=== PATIENT | female | born 1945 | race Caucasian/White ===

== ENCOUNTER 2017-07-03 17:22 | Observation (INO) ==
[2017-07-04] MEDS ORDERED: NORCO-5 PO PRN (01:51)
[2017-07-04] MEDS ORDERED: TYLENOL PO PRN (01:51)
[2017-07-04 06:20] LABS: MANUAL DIFF NEEDED? NO
[2017-07-04 06:25] LABS: BASO% 0.4 % (0.0-0.8); EOS# 0.08 X1000 (0.0-0.7); EOS% 0.8 % (0.0-10.0); HEMATOCRIT 38.6 % (37.0-47.0); HEMOGLOBIN 11.9 g/dL (12.0-16.0); IMM GRAN# 0.03 X1000 (0.0-0.04); IMM GRAN% 0.3 % (0.0-0.5); LYMPH# 1.87 X1000 (1.2-3.4); LYMPH% 18.3 % (20.5-51.1); MCHC 30.8 g/dL (33-37); MCV 84.3 FL (81-99); MONO% 6.9 % (1.7-9.3); MPV 9.1 FL (7.4-10.4); NEUT% 73.3 % (42.2-75.2); PLT 382 X1000 (130-400); RBC 4.58 XMIL (4.2-5.4)
[2017-07-04 06:50] LABS: AGAP 12; ALBUMIN 4.1 g/dL (3.5-5.0); ALKALINE PHOSPHATASE 94 U/L (32-104); BUN 11 mg/dL (8-22); CALCIUM 9.5 mg/dL (8.8-10.2); CHLORIDE 99 mmol/L (98-107); COSMO 280; GOT 16 U/L (10-30); GPT 12 U/L (10-36); POTASSIUM 4.1 mmol/L (3.5-5.1); SODIUM 139 mmol/L (136-145); TCO2 28 mmol/L (25-35); TOTAL PROTEIN 7.1 g/dL (6.3-8.3)
[2017-07-04] MEDS: NORCO-7.5 PO PRN ×3 (07:18→20:03)
[2017-07-04] MEDS: THERA M PLUS PO SCH (08:43)
[2017-07-04] MEDS: ASPIRIN PO SCH (08:43)
[2017-07-04] MEDS: KLOR-CON PO SCH (08:43)
[2017-07-04 12:06] LABS: BILIRUBIN URINE NEGATIVE (NEGATIVE); BLOOD URINE 2+ (NEGATIVE); CLARITY VERY CLOUDY (CLEAR); COLOR YELLOW; GLUCOSE URINE NEGATIVE (NEGATIVE); LEUKOCYTES URINE 2+ (NEGATIVE); NITRITE URINE POSITIVE (NEGATIVE); PH URINE 6.5; PROTEIN URINE TRACE mg/dL (NEGATIVE); SP GRAVITY URINE 1.015; UROBILINOGEN URINE NORMAL
[2017-07-04 12:07] LABS: URINE CRYSTAL CA OXALATE PRESENT /HPF; URINE CULTURE PL NEEDED? YES; URINE EPITHELIAL CELLS <10 /HPF (<10); URINE SOURCE CLEAN CATCH; URINE WBC 20-40 /HPF (<10)
[2017-07-04] MEDS: SEPTRA DS PO SCH (20:03)
[2017-07-04] MEDS ORDERED: ZOFRAN PO PRN (23:52)
[2017-07-05] MEDS: ZOFRAN ODT PO PRN ×2 (00:34→11:21)
[2017-07-05] MEDS: NORCO-7.5 PO PRN ×4 (02:21→22:23)
[2017-07-05 06:32] LABS: HEMATOCRIT 36.5 % (37.0-47.0); HEMOGLOBIN 11.2 g/dL (12.0-16.0); MCHC 30.7 g/dL (33-37); MCV 84.7 FL (81-99); MPV 8.8 FL (7.4-10.4); RBC 4.31 XMIL (4.2-5.4)
[2017-07-05 07:02] LABS: AGAP 8; BUN 12 mg/dL (8-22); CALCIUM 9.4 mg/dL (8.8-10.2); CHLORIDE 100 mmol/L (98-107); COSMO 277; POTASSIUM 4.3 mmol/L (3.5-5.1); SODIUM 138 mmol/L (136-145); TCO2 30 mmol/L (25-35)
[2017-07-05] MEDS ORDERED: ROCEPHIN 1 GM in NS 50 ML IV SCH (09:00)
[2017-07-05] MEDS: KLOR-CON PO SCH (09:09)
[2017-07-05] MEDS: ASPIRIN PO SCH (09:10)
[2017-07-05] MEDS: THERA M PLUS PO SCH (09:10)
[2017-07-05] MEDS: SEPTRA DS PO SCH ×2 (09:10→22:22)
[2017-07-05 12:00] LABS: INR 0.87 (0.86-1.15); PROTIME 12.5 Seconds (12.1-15.5)
[2017-07-05] MEDS: LASIX PO SCH (22:23)
[2017-07-06] MEDS: NORCO-7.5 PO PRN ×5 (02:22→22:54)
[2017-07-06] MEDS: LASIX PO SCH ×3 (02:27→20:20)
[2017-07-06] MEDS: KLOR-CON PO SCH (08:33)
[2017-07-06] MEDS: ASPIRIN PO SCH (08:33)
[2017-07-06] MEDS: THERA M PLUS PO SCH (08:34)
[2017-07-06] MEDS: SEPTRA DS PO SCH ×2 (08:34→20:21)
[2017-07-06] MEDS ORDERED: PHENERGAN IM ONE (12:11)
[2017-07-06] MEDS ORDERED: DILAUDID IM ONE (12:11)
[2017-07-07] MEDS: NORCO-7.5 PO PRN ×4 (03:05→16:04)
[2017-07-07 06:20] LABS: HEMOGLOBIN 11.2 g/dL (12.0-16.0); MCHC 31.1 g/dL (33-37); MCV 83.7 FL (81-99); MPV 8.8 FL (7.4-10.4); RBC 4.3 XMIL (4.2-5.4)
[2017-07-07 06:28] LABS: AGAP 10; ALKALINE PHOSPHATASE 87 U/L (32-104); BUN 10 mg/dL (8-22); CALCIUM 9.3 mg/dL (8.8-10.2); CHLORIDE 95 mmol/L (98-107); COSMO 274; GOT 13 U/L (10-30); GPT 13 U/L (10-36); MAGNESIUM 2.2 mg/dL (1.5-2.7); POTASSIUM 4.5 mmol/L (3.5-5.1); SODIUM 136 mmol/L (136-145); TCO2 31 mmol/L (25-35); TOTAL PROTEIN 6.9 g/dL (6.3-8.3)
[2017-07-07] MEDS: ZOFRAN ODT PO PRN (07:23)
[2017-07-07] MEDS: SEPTRA DS PO SCH (08:55)
[2017-07-07] MEDS: KLOR-CON PO SCH (08:55)
[2017-07-07] MEDS: LASIX PO SCH ×2 (08:55→21:40)
[2017-07-07] MEDS: ASPIRIN PO SCH (08:55)
[2017-07-07] MEDS: THERA M PLUS PO SCH (08:56)
[2017-07-08] MEDS: NORCO-7.5 PO PRN ×6 (00:01→20:59)
[2017-07-08 05:59] LABS: HEMATOCRIT 36.3 % (37.0-47.0); HEMOGLOBIN 11.3 g/dL (12.0-16.0); MCHC 31.1 g/dL (33-37); MCV 83.6 FL (81-99); MPV 8.8 FL (7.4-10.4); RBC 4.34 XMIL (4.2-5.4)
[2017-07-08 06:16] LABS: ALBUMIN 4.1 g/dL (3.5-5.0); CALCIUM 9.3 mg/dL (8.8-10.2); MAGNESIUM 2.1 mg/dL (1.5-2.7); TOTAL BILIRUBIN 0.3 mg/dL (0.20-1.00); TOTAL PROTEIN 7.1 g/dL (6.3-8.3)
[2017-07-08] MEDS: ZOFRAN ODT PO PRN (07:06)
[2017-07-08] MEDS: KLOR-CON PO SCH (08:20)
[2017-07-08] MEDS: LASIX PO SCH ×2 (08:20→21:00)
[2017-07-08] MEDS: ASPIRIN PO SCH (08:20)
[2017-07-08] MEDS: THERA M PLUS PO SCH (08:20)
[2017-07-09] MEDS: NORCO-7.5 PO PRN ×6 (01:06→23:00)
[2017-07-09] MEDS: LASIX PO SCH ×2 (10:07→21:04)
[2017-07-09] MEDS: THERA M PLUS PO SCH (10:07)
[2017-07-09] MEDS: KLOR-CON PO SCH (10:07)
[2017-07-09] MEDS: ASPIRIN PO SCH (10:08)
[2017-07-09] MEDS: LOVENOX SUBQ SCH (18:56)
[2017-07-09] MEDS: SEPTRA DS PO SCH (21:05)
[2017-07-10] MEDS: ZOFRAN ODT PO PRN (03:36)
[2017-07-10] MEDS: NORCO-7.5 PO PRN ×5 (03:36→23:13)
[2017-07-10 06:07] LABS: HEMATOCRIT 37.4 % (37.0-47.0); HEMOGLOBIN 11.6 g/dL (12.0-16.0); MCH 25.9 PG (27-31); MCV 83.5 FL (81-99); MPV 8.6 FL (7.4-10.4); RBC 4.48 XMIL (4.2-5.4)
[2017-07-10 06:31] LABS: AGAP 11; BUN 16 mg/dL (8-22); CALCIUM 9.1 mg/dL (8.8-10.2); CHLORIDE 94 mmol/L (98-107); COSMO 276; POTASSIUM 3.7 mmol/L (3.5-5.1); SODIUM 136 mmol/L (136-145); TCO2 31 mmol/L (25-35)
[2017-07-10] MEDS: SEPTRA DS PO SCH ×2 (08:51→21:59)
[2017-07-10] MEDS: LASIX PO SCH ×2 (08:51→21:58)
[2017-07-10] MEDS: THERA M PLUS PO SCH (08:51)
[2017-07-10] MEDS: KLOR-CON PO SCH (08:51)
[2017-07-10] MEDS: ASPIRIN PO SCH (08:51)
[2017-07-10] MEDS: LOVENOX SUBQ SCH (18:29)
[2017-07-11] MEDS: NORCO-7.5 PO PRN ×5 (02:34→23:38)
[2017-07-11 06:27] LABS: HEMATOCRIT 35.9 % (37.0-47.0); HEMOGLOBIN 11.4 g/dL (12.0-16.0); MCH 26.5 PG (27-31); MCHC 31.8 g/dL (33-37); MCV 83.3 FL (81-99); MPV 9.2 FL (7.4-10.4); RBC 4.31 XMIL (4.2-5.4)
[2017-07-11 06:40] LABS: AGAP 12; BUN 14 mg/dL (8-22); CALCIUM 9.4 mg/dL (8.8-10.2); CHLORIDE 94 mmol/L (98-107); COSMO 276; POTASSIUM 3.8 mmol/L (3.5-5.1); SODIUM 136 mmol/L (136-145); TCO2 31 mmol/L (25-35)
[2017-07-11] MEDS: ZOFRAN ODT PO PRN ×2 (07:17→16:22)
[2017-07-11] MEDS: KLOR-CON PO SCH (08:59)
[2017-07-11] MEDS: ASPIRIN PO SCH (08:59)
[2017-07-11] MEDS: SEPTRA DS PO SCH ×2 (09:00→20:03)
[2017-07-11] MEDS: LASIX PO SCH ×2 (09:00→20:03)
[2017-07-11] MEDS: THERA M PLUS PO SCH (09:01)
[2017-07-11] MEDS: LOVENOX SUBQ SCH (18:11)
[2017-07-12] MEDS: NORCO-7.5 PO PRN ×5 (03:29→23:54)
[2017-07-12] MEDS: KLOR-CON PO SCH (09:13)
[2017-07-12] MEDS: THERA M PLUS PO SCH (09:13)
[2017-07-12] MEDS: ASPIRIN PO SCH (09:14)
[2017-07-12] MEDS: LASIX PO SCH ×2 (09:14→20:02)
[2017-07-12] MEDS: SEPTRA DS PO SCH ×2 (09:15→20:03)
[2017-07-12] MEDS: ZOFRAN ODT PO PRN (12:18)
[2017-07-12] MEDS: LOVENOX SUBQ SCH (18:51)
[2017-07-13] MEDS: NORCO-7.5 PO PRN ×5 (04:15→22:41)
[2017-07-13] MEDS: THERA M PLUS PO SCH (09:23)
[2017-07-13] MEDS: KLOR-CON PO SCH (09:24)
[2017-07-13] MEDS: ASPIRIN PO SCH (09:24)
[2017-07-13] MEDS: SEPTRA DS PO SCH ×2 (09:24→20:27)
[2017-07-13] MEDS: LASIX PO SCH ×2 (09:24→20:26)
[2017-07-13] MEDS: LOVENOX SUBQ SCH (18:25)
[2017-07-14] MEDS: NORCO-7.5 PO PRN ×5 (04:13→22:36)
[2017-07-14] MEDS: ZOFRAN ODT PO PRN (06:59)
[2017-07-14] MEDS: SEPTRA DS PO SCH (09:20)
[2017-07-14] MEDS: ASPIRIN PO SCH (09:20)
[2017-07-14] MEDS: LASIX PO SCH ×2 (09:20→20:03)
[2017-07-14] MEDS: THERA M PLUS PO SCH (09:21)
[2017-07-14] MEDS: KLOR-CON PO SCH (09:21)
[2017-07-14] MEDS ORDERED: LACTULOSE PO PRN (14:38)
[2017-07-14] MEDS: LOVENOX SUBQ SCH (17:49)
[2017-07-15] MEDS: NORCO-7.5 PO PRN ×5 (02:58→21:36)
[2017-07-15] MEDS: MIRALAX PO SCH (08:45)
[2017-07-15] MEDS: LASIX PO SCH ×2 (08:45→21:35)
[2017-07-15] MEDS: THERA M PLUS PO SCH (08:45)
[2017-07-15] MEDS: KLOR-CON PO SCH (08:45)
[2017-07-15] MEDS: ASPIRIN PO SCH (08:45)
[2017-07-15] MEDS: ZOFRAN ODT PO PRN (17:32)
[2017-07-15] MEDS: LOVENOX SUBQ SCH (17:32)
[2017-07-16] MEDS: NORCO-7.5 PO PRN ×5 (03:28→18:53)
[2017-07-16] MEDS: LASIX PO SCH ×2 (09:14→20:29)
[2017-07-16] MEDS: ASPIRIN PO SCH (09:14)
[2017-07-16] MEDS: KLOR-CON PO SCH (09:14)
[2017-07-16] MEDS: THERA M PLUS PO SCH (09:14)
[2017-07-16] MEDS: MIRALAX PO SCH (09:15)
[2017-07-16] MEDS: ZOFRAN ODT PO PRN (15:15)
[2017-07-16] MEDS: LOVENOX SUBQ SCH (17:48)
[2017-07-17] MEDS: NORCO-7.5 PO PRN ×6 (00:08→22:57)
[2017-07-17] MEDS: THERA M PLUS PO SCH (09:08)
[2017-07-17] MEDS: KLOR-CON PO SCH (09:08)
[2017-07-17] MEDS: ASPIRIN PO SCH (09:09)
[2017-07-17] MEDS: LASIX PO SCH ×2 (09:09→20:20)
[2017-07-17] MEDS: MIRALAX PO SCH (09:10)
[2017-07-17] MEDS: ZOFRAN ODT PO PRN (15:02)
[2017-07-17] MEDS: LOVENOX SUBQ SCH (18:23)
[2017-07-18] MEDS: NORCO-7.5 PO PRN ×3 (03:55→13:23)
[2017-07-18 07:29] VITALS: BP 129/71
[2017-07-18] MEDS: LASIX PO SCH (08:50)
[2017-07-18] MEDS: THERA M PLUS PO SCH (08:50)
[2017-07-18] MEDS: KLOR-CON PO SCH (08:50)
[2017-07-18] MEDS: ASPIRIN PO SCH (08:50)
[2017-07-18] MEDS: MIRALAX PO SCH (10:22)
== END 2017-07-18 14:15 ==
LOC: P.ED 17:22 → P.MEDSURG 17:22 → SUATTDRO 17:24
PROVIDERS: ATTEND Family Medicine

== ENCOUNTER 2019-07-24 10:46 | Inpatient (IN) ==
[2019-07-24] MEDS ORDERED: NS 1,000 ML IV ONE (11:06)
[2019-07-24 11:23] LABS: BASO# 0.04 X1000 (0.0-0.2); BASO% 0.4 % (0.0-0.8); EOS# 0.21 X1000 (0.0-0.7); EOS% 2.1 % (0.0-10.0); HEMATOCRIT 44.3 % (37.0-47.0); HEMOGLOBIN 13.9 g/dL (12.0-16.0); IMM GRAN# 0.02 X1000 (0.0-0.04); IMM GRAN% 0.2 % (0.0-0.5); LYMPH# 1.87 X1000 (1.2-3.4); LYMPH% 18.9 % (20.5-51.1); MCH 25.6 PG (27-31); MCHC 31.4 g/dL (33-37); MCV 81.7 FL (81-99); MONO# 0.58 X1000 (0.11-0.59); MONO% 5.8 % (1.7-9.3); NEUT% 72.6 % (42.2-75.2); PLT 412 X1000 (130-400); RBC 5.42 XMIL (4.2-5.4); RDW 14.9 % (11.5-14.5); WBC 9.92 X1000 (4.8-10.8)
[2019-07-24 11:49] LABS: AGAP 13; ALBUMIN 4.1 g/dL (3.5-5.0); ALKALINE PHOSPHATASE 80 U/L (32-104); BUN 10 mg/dL (8-22); CALCIUM 9.2 mg/dL (8.8-10.2); CHLORIDE 100 mmol/L (98-107); COSMO 282; CREATININE 0.5 mg/dL (0.5-0.9); ESTIMATED GFR > 60; GLUCOSE 155 mg/dL (70-104); GOT 17 U/L (10-30); GPT 18 U/L (10-36); POTASSIUM 3.6 mmol/L (3.5-5.1); SODIUM 140 mmol/L (136-145); TCO2 27 mmol/L (25-35); TOTAL PROTEIN 7.1 g/dL (6.3-8.3)
--- NOTE | 2019-07-24 12:43 | EKG Report ---
Test Performed on : 07/24/2019 11:12:01 AM Test Reason : tachycardia Blood Pressure : / mmHG Vent. Rate : 114 BPM Atrial Rate : 114 BPM P-R Int : 166 ms QRS Dur : 086 ms QT Int : 336 ms P-R-T Axes : 052 -29 043 degrees QTc Int : 463 ms Sinus tachycardia. Inferior infarct (cited on or before 11-JUL-2017) Cannot rule out Anterior infarct (cited on or before 10-JUL-2017) Abnormal ECG When compared with ECG of 11-JUL-2019 12:49, premature ventricular complexes. are no longer present Unconfirmed Result
--- NOTE | 2019-07-24 16:53 | EKG Report ---
Test Performed on : 07/24/2019 4:52:05 PM Test Reason : TACHYCARDIA Blood Pressure : / mmHG Vent. Rate : 108 BPM Atrial Rate : 108 BPM P-R Int : 158 ms QRS Dur : 078 ms QT Int : 354 ms P-R-T Axes : 057 -20 051 degrees QTc Int : 474 ms Sinus tachycardia. Inferior infarct (cited on or before 11-JUL-2019) Cannot rule out Anterior infarct (cited on or before 10-JUL-2017) Abnormal ECG When compared with ECG of 24-JUL-2019 11:12, (Unconfirmed) Serial changes of Anterior infarct present Unconfirmed Result
[2019-07-24] MEDS ORDERED: NORCO-5 PO ONE (16:55)
[2019-07-24] MEDS ORDERED: PHENERGAN IV ONE (16:57)
[2019-07-24] MEDS ORDERED: SODIUM CHLORIDE 0.9% INJ ONE (16:57)
--- NOTE | 2019-07-24 17:24 | PROVIDER DOCUMENTATION ---
This chart was entered by Quyen Das Scribe, acting as scribe for Donnie Hackett MD. HPI-Abdominal Pain/GI Problem - General Chief Complaint: Diarrhea Stated Complaint: DIARRHEA Time Seen by Provider: 07/24/19 11:07 Source: patient Allergies/Adverse Reactions: Patient Allergies Allergy/AdvReac Type Severity Reaction Status Date / Time codeine Allergy RASH Verified 07/24/19 11:30 Penicillins Allergy RASH Verified 07/24/19 11:30 Home Medications: Home Medication List Medication Instructions Recorded Confirmed Last Taken Type NK [No Home Medications] 07/24/19 07/24/19 Unknown History - History of Present Illness-ABD Nature of Presenting Problems: 73yom presents to ED by EMS cc diarrhea 2-3x a day for last 10 days that is watery and dark. Pt reports she has been staying at the [facility] since 07/11 with her boyfriend for a pre-honeymoon and he started with diarrhea 3 days ago. Pt also reports she was bitten by a Brown Recl[place] Spider in 2016 and has had diarrhea problems off and on since with this time being the worst. Pt denies V/N/chest pain or ABT. Pt has hx of DM. Pt is nontoxic in appearance. Severity in ED: reports: mild Onset/Duration: reports: other (10days) Timing: reports: still present Activities at Onset: reports: light activity Exposure to sick contacts?: Yes (boyfriend has diarrhea for last 3 days) Modifying Factors: improves with: nothing Associated Symptoms: reports: diarrhea Last BM: this morning Dark Stools Present?: reports: none noticed Rectal Bleeding: reports: none Rectal Pain: reports: none Emesis Description: reports: none Bruising or Bleeding Gums?: No Similar Symptoms Previously?: No Recently seen or treated by another doctor?: No Review of Systems - Adult - REVIEW OF SYSTEMS - ADULT Constitutional: reports: see HPI. denies: chills, fever, fatique Eyes: reports: no symptoms reported Ears, Nose, Mouth & Throat: reports: no symptoms reported Cardiovascular: reports: see HPI. denies: chest pain Respiratory: reports: no symptoms reported Gastrointestinal: reports: see HPI, diarrhea. denies: abdominal pain, nausea, vomiting Genitourinary: reports: no symptoms reported Musculoskeletal: reports: no symptoms reported Integumentary: reports: no symptoms reported Neurological: reports: no symptoms reported Psychiatric: reports: no symptoms reported Endocrine: reports: no symptoms reported Hematologic/Lymphatic: reports: no symptoms reported Allergic/Immunologic: reports: no symptoms reported All Other Systems: Reviewed and Negative Past History - Adult - PAST MEDICAL HISTORY-ADULT Review of Records: reports: Nursing Assessment Review, Medications Reviewed, Social history reviewed & non-contributory. Major Childhood Illnesses: reports: denies history Cardiovascular: reports: denies history Respiratory: reports: denies history Gastrointestinal: reports: denies history Obstetrical/Gynecological: reports: denies history Genitourinary: reports: denies history Musculoskeletal: reports: denies history Neurological: reports: denies history Endocrine/Immune: reports: denies history Other Conditions: reports: denies history - PRIOR SURGERIES/PROCEDURES Surgical/Procedure History: reports: none - IMMUNIZATION STATUS Childhood Immunizations: See Nurse Assessment Flu Vaccine: See Nurse Assessment - FAMILY HISTORY Family History: reviewed, not pertinent - SOCIAL HISTORY Smoking: denies Physical Exam-General - PHYSICAL EXAM-ADULT Initial Vital Signs Reviewed: Yes - CONSTITUTIONAL General Appearance: appears well, alert, no apparent distress, obese. negative: anxious, combative - EYES Eyes: PERRL/EOMI, pink conjunctivae. negative: photophobia - HEAD, EARS, NOSE, MOUTH & THROAT HENMT: normocephalic/atraumatic, moist mucous membranes, normal ENT inspection. negative: angioedema - RESPIRATORY Respiratory: chest non-tender, lungs clear, normal breath sounds. negative: wheezing - CARDIOVASCULAR Cardiovascular: normal peripheral pulses, no edema, tachycardia. negative: regular rate, rhythm, bradycardia - GASTROINTESTINAL (ABDOMEN) Abdominal Exam: normal bowel sounds, non tender, soft, no organomegaly, no pulsatile mass. negative: tenderness - MUSCULOSKELETAL Extremity: pulse deficit (bilateral), tenderness (bilateral lower legs, feet) - SKIN Integumentary: erythema (bilateral lower legs, left is greater), warm, other (peeling lower legs and feet bilateral pt has feces on left hand fingers and both ankles). negative: diaphoresis, ecchymosis - NEUROLOGIC Neurologic: hand packer II-XII nml as tested, grossly normal. negative: facial droop, focal weakness, motor weakness, sensory deficit - PSYCHIATRIC Psych/Mental Status: normal mood/affect, oriented x 3. negative: anxious, disheveled Progress - PLAN OF CARE/RESULTS Progress/Plan/Lab Results: Vital Signs - 8 hr 07/24/19 10:43 Temperature 98.7 F Pulse Rate 123 H Respiratory Rate 20 Blood Pressure 140/73 O2 Sat by Pulse Oximetry 95 Orders Category Date Time Status CBC WITH ELECTRONIC DIFF [HEME] Stat Lab 07/24/19 10:47 Ordered COMPREHENSIVE METABOLIC PANEL [CHEM] Stat Lab 07/24/19 10:47 Uncollected 0.9% Sodium Chloride Inj [Ns] 1,000 ml Med 07/24/19 11:06 Active IV 999 mls/hr Result Diagrams: 07/24/19 11:00 07/24/19 11:00 - EKG 1 Time of EKG reading by physician:: 11:30 EKG Read and Signed by:: Donnie Hackett EKG Interpretation (*Must complete 3 of following elements*): Abnormal (inferior infarct, age undetermined cannot rule out anterior infarct, age undetermined) Rate: 114 Rhythm: sinus tachycardia QRS: poor R wave progression ST Wave: normal Departure - Departure Date of Disposition Decision: 07/24/19 Time of Disposition Decision: 17:16 DIAGNOSIS: Chronic edema, Chronic bacterial skin infection, Bedridden Disposition: ADMITTED INPATIENT 09 Certified Medical Emergency: Emergent Condition: Stable Additional Freetext Instructions: ED Follow Up Instructions: You have been treated by a care provider in the Emergency Department. These instructions are being provided to you so you can have an understanding of how to care for yourself upon discharge. Upon discharge from the Emergency Department, you are responsible for making arrangements for follow-up care by a physician of your choice. Take all prescribed medications as directed. Return to the Emergency Department immediately for any new or worsening s ymptoms. You may call the Physician Referral phone number at [phone] to obtain a list of Physicians who are taking new patients. Referrals and Follow-Ups: None,PCP [Primary Care Provider] - - Critical Care Note This patient required my direct & personal management of CC.: No Attestation - Physician/ OLGA LIDIA Attestation Patient care was provided by Advanced Practice Provider:: No The physician spent face to face time with patient:: Yes Advanced Practice Provider documentation review:: Supervising physician onsite and consulted in the evaluation and care of this patient. The physician did have a face to face encounter with the patient. This chart was documented by the indicated scribe, (Quyen Das, Cemibjenniffer) and accurately reflects the services I performed and decisions made by me, Donnie Hay MD, as attested by the provider's signature.
[2019-07-24] MEDS ORDERED: NEURONTIN PO ONE (18:11)
--- NOTE | 2019-07-24 22:27 | HISTORY AND PHYSICAL ---
PRIMARY CARE PHYSICIAN: Dr. [place] CHIEF COMPLAINT: Diarrhea 2 to 3 times a day for the past 10 days that was watery and dark. HISTORY OF PRESENTING ILLNESS: This is a 73-year-old, morbidly obese female who presents to [facility] ER via EMS with a 2 to 3 times a day diarrhea for the last 10 days, that she reports is watery and dark. States that she has been staying at the [facility] since 07/11 with her boyfriend, when he started having diarrhea 3 days prior, and workup has been benign other than the diarrhea. She does have orders for a C difficile toxin, occult blood, and a white blood cell for stool that has not been collected yet. We will also order a CT of the abdomen and pelvis with p.o. and IV contrast as well. She received a L bolus of normal saline, 25 mg of Phenergan IV in the emergency room, and will be admitted for further evaluation and treatment. PAST MEDICAL HISTORY: Rheumatoid arthritis. PAST SURGICAL HISTORY: Bilateral carpal tunnel, TMJ surgery, a right breast lumpectomy, hysterectomy, right rotator cuff, right knee surgery. FAMILY HISTORY: Reviewed and noncontributory. SOCIAL HISTORY: She currently lives with her boyfriend. Denies any tobacco, alcohol, or illicit drug use. ALLERGIES: Codeine and penicillin. HOME MEDICATIONS: She does not take any medications on a routine basis. LABORATORY DATA: Showed a white blood cell count of 9.92, hemoglobin 13.9, hematocrit 44.3, platelets 412,000. Sodium 140, potassium 3.6, chloride 100, CO2 of 27, BUN of 10, creatinine 0.5. Glucose 155. EKG showed sinus tachycardia at 114 bpm. REVIEW OF SYSTEMS: She denied any fever, chills, blurred vision, dizziness, chest pain, coughing, shortness of breath. She denied any abdominal pain. She did have some nausea. Denied any vomiting, and has had diarrhea 2 to 3 times a day for the past 10 days. Denied any burning or hurting with urination. PHYSICAL EXAMINATION: VITAL SIGNS: On arrival she had a temperature of 98.7 degrees, a pulse of 123, respirations 20, blood pressure 140/73, saturating 95% on room air. GENERAL: This is a 73-year-old female who is lying in the bed, answers questions appropriately. HEENT: Normocephalic, atraumatic. Normal ENT inspection. Oropharynx and nares are clear. EYES: Pupils are equal, round, reactive to light and accommodation. Extraocular movements are intact. NECK: Normal inspection. Normal range of motion. LUNGS: Clear to auscultation bilaterally with equal lung expansion and chest wall movement. HEART: With regular rate and rhythm. No murmurs, rubs, or gallops. ABDOMEN: Soft, nontender, nondistended. Bowel sounds are present x4 quadrants. SKIN: She does have excoriation to bilateral inner thighs from her diarrhea. She also has peeling to her lower legs and feet bilaterally. NEUROLOGICAL: The cranial nerves 2-12 appear grossly intact. ASSESSMENT: 1. Diarrhea. 2. Presumed gastroenteritis. PLAN: She will be admitted to the medical unit. There are orders to obtain a C difficile toxin, occult blood, and a white blood cell stool. Also, to obtain a CT of the abdomen and pelvis with p.o. and IV contrast. She will be on normal saline at 75 mL/h, clear liquid diet, telemetry. Will apply SCDs for DVT prophylaxis. We will give her Zofran 4 mg IV q.4 hours p.r.n., Tylenol 650 mg p.o. p.r.n. Further orders after being seen by attending and reviewing pending labs and imaging. Dictated by ANDRE Paul for Charanjit Mueller MD cc: ANDRE Paul MD
[2019-07-24] MEDS: NORCO-7.5 PO PRN (23:47)
--- NOTE | 2019-07-25 00:06 | HISTORY AND PHYSICAL ---
SUBJECTIVE: Patient has no major complaints, except diarrhea. She usually lives in a intermediate. Somehow, she was staying in a motel with I guess a fiance. They were planning to go to [place], and then she developed nausea, vomiting, diarrhea, which has been going on for at least 7 to 10 days, and she was admitted for further treatment. She is pretty tachycardic. Her baseline, not entirely sure, it is unclear if this is an infectious type process versus other. We will continue to follow. DISPOSITION: Pending her clinical status. cc: Charanjit Mueller MD
[2019-07-25] MEDS: NS 1,000 ML IV SCH ×2 (01:46→14:21)
[2019-07-25] MEDS: CALMOSEPTINE OINTMENT TOP PRN (06:05)
[2019-07-25] MEDS: NORCO-7.5 PO PRN ×3 (06:22→21:56)
[2019-07-25] MEDS ORDERED: NEURONTIN PO SCH (09:00)
--- NOTE | 2019-07-25 09:40 | Diag Imaging Result Doc PS360 ---
EXAM: CT ABD/PELVIS W/PO AND IV CON INDICATION: diarrhea TECHNIQUE: This exam was performed using automated exposure control, adjustment of mA or kV according to patient size, and/or use of iterative reconstruction technique. COMPARISON: None. FINDINGS: There is mild hepatic steatosis. The gallbladder, spleen, pancreas, and adrenal glands are essentially unremarkable. There is a prominent 1.8 cm nonobstructing calyceal stone associated with the right kidney. There is no hydronephrosis. 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 The kidneys are essentially unremarkable, otherwise. The urinary bladder is grossly unremarkable. There has been a prior hysterectomy. There is a tiny hiatal hernia. There is no focal bowel wall thickening identified and no evidence of bowel obstruction. The remainder of the GI tract is grossly unremarkable. No focal inflammatory changes, free abdominal gas, or free fluid is appreciated. There is no evidence of acute osseous abnormality. IMPRESSION: Incidental/nonacute findings detailed above. No definite acute pathology by CT. Electronically signed by Silverio Kaminski 07/25/2019 9:37 AM
[2019-07-25 10:22] LABS: BASO% 0.8 % (0.0-0.8); EOS% 2.5 % (0.0-10.0); HEMATOCRIT 42.4 % (37.0-47.0); HEMOGLOBIN 13.2 g/dL (12.0-16.0); IMM GRAN% 0.3 % (0.0-0.5); LYMPH% 23.4 % (20.5-51.1); MCH 25.8 PG (27-31); MCHC 31.1 g/dL (33-37); MCV 82.8 FL (81-99); MONO% 8.3 % (1.7-9.3); MPV 8.8 FL (7.4-10.4); NEUT# 6.51 X1000 (1.4-6.5); NEUT% 64.7 % (42.2-75.2); PLT 382 X1000 (130-400); RBC 5.12 XMIL (4.2-5.4); RDW 15.4 % (11.5-14.5); WBC 10.06 X1000 (4.8-10.8)
[2019-07-25 10:23] LABS: BASO# 0.08 X1000 (0.0-0.2); EOS# 0.25 X1000 (0.0-0.7); IMM GRAN# 0.03 X1000 (0.0-0.04); LYMPH# 2.35 X1000 (1.2-3.4); MONO# 0.84 X1000 (0.11-0.59)
[2019-07-25 10:33] LABS: AGAP 11; BUN 6 mg/dL (8-22); CALCIUM 8.7 mg/dL (8.8-10.2); CHLORIDE 104 mmol/L (98-107); COSMO 277; CREATININE 0.5 mg/dL (0.5-0.9); ESTIMATED GFR > 60; GLUCOSE 137 mg/dL (70-104); POTASSIUM 4.4 mmol/L (3.5-5.1); SODIUM 139 mmol/L (136-145); TCO2 24 mmol/L (25-35)
[2019-07-25] MEDS ORDERED: VANCOMYCIN IV PER PHARMACY MISC SCH (14:15)
[2019-07-25] MEDS: NEURONTIN PO SCH ×2 (14:21→21:56)
[2019-07-25] MEDS ORDERED: VANCOMYCIN 2,500 MG in NS 500 ML IV ONE (15:00)
--- NOTE | 2019-07-25 15:47 | PROGRESS NOTE ---
DATE: 07/25/2019 SUBJECTIVE: She has complaints of just diffuse pain, especially pain in her lower extremities. OBJECTIVE: Vital Signs: Blood pressure is 139/80, heart rate 88, respiratory rate 16, and temperature 97.9. Cardiovascular: Regular rate and rhythm. Pulmonary: Bilateral breath sounds are clear to auscultation. GI: Abdomen is soft, nontender, and nondistended. Bowel sounds are positive. Extremities: She has bilateral erythema, right greater than left. She has kind of crusting skin that has kind of flaked off with a reddish tinge on both of her feet bilaterally. PROBLEM LIST: 1. Diarrhea. That I believe essentially resolved. So, I think that seems to be doing okay. Stool studies really were not revealing in that we have not gotten them yet because her diarrhea I think has resolved. 2. Cellulitis. She does have cellulitis of both her legs. We will start vancomycin and follow. 3. History of possibly bipolar. She is on multiple psychiatric medications and we are going to continue those and follow. 4. Disposition: She is too weak to kind of get up and around. I do not know exactly how she was managing as an outpatient but now she cannot really get up and around so we are looking at a rehab option for her when she is more stable. cc: Charanjit Mueller MD
[2019-07-25] MEDS: DEPAKOTE ER PO SCH (21:57)
[2019-07-25] MEDS: CYMBALTA PO SCH (21:57)
[2019-07-25] MEDS: GLUCOPHAGE XR PO SCH (21:58)
[2019-07-25] MEDS: LIORESAL PO SCH (21:58)
[2019-07-25] MEDS: RISPERDAL PO SCH (21:58)
[2019-07-26 08:01] LABS: BASO# 0.06 X1000 (0.0-0.2); BASO% 0.8 % (0.0-0.8); EOS# 0.31 X1000 (0.0-0.7); EOS% 4.3 % (0.0-10.0); HEMATOCRIT 40.4 % (37.0-47.0); HEMOGLOBIN 12.4 g/dL (12.0-16.0); IMM GRAN# 0.02 X1000 (0.0-0.04); IMM GRAN% 0.3 % (0.0-0.5); LYMPH# 1.61 X1000 (1.2-3.4); LYMPH% 22.4 % (20.5-51.1); MCH 25.6 PG (27-31); MCHC 30.7 g/dL (33-37); MCV 83.5 FL (81-99); MONO# 0.65 X1000 (0.11-0.59); MONO% 9.1 % (1.7-9.3); MPV 8.8 FL (7.4-10.4); NEUT# 4.53 X1000 (1.4-6.5); NEUT% 63.1 % (42.2-75.2); PLT 303 X1000 (130-400); RBC 4.84 XMIL (4.2-5.4); RDW 15.4 % (11.5-14.5); WBC 7.18 X1000 (4.8-10.8)
[2019-07-26 08:15] LABS: AGAP 13; ALBUMIN 3.5 g/dL (3.5-5.0); ALKALINE PHOSPHATASE 69 U/L (32-104); BUN 6 mg/dL (8-22); CHLORIDE 104 mmol/L (98-107); COSMO 283; CREATININE 0.5 mg/dL (0.5-0.9); ESTIMATED GFR > 60; GLUCOSE 167 mg/dL (70-104); GOT 38 U/L (10-30); GPT 34 U/L (10-36); POTASSIUM 3.9 mmol/L (3.5-5.1); SODIUM 141 mmol/L (136-145); TCO2 24 mmol/L (25-35)
[2019-07-26] MEDS: KLOR-CON PO SCH (09:30)
[2019-07-26] MEDS: GLUCOPHAGE XR PO SCH (09:30)
[2019-07-26] MEDS: DEPAKOTE ER PO SCH ×2 (09:30→22:02)
[2019-07-26] MEDS: CYMBALTA PO SCH ×2 (09:30→22:01)
[2019-07-26] MEDS: NEURONTIN PO SCH ×3 (09:30→22:03)
[2019-07-26] MEDS: ZOFRAN IV PRN (09:31)
[2019-07-26] MEDS: NORCO-7.5 PO PRN ×2 (12:06→22:10)
[2019-07-26 13:12] LABS: OCCULT BLOOD 1 NEGATIVE (NEGATIVE)
[2019-07-26] MEDS ORDERED: EUCERIN LOTION TOP PRN (15:18)
--- NOTE | 2019-07-26 15:37 | PROGRESS NOTE ---
DATE: 07/26/2019 SUBJECTIVE: Patient has no major complaints except diarrhea. She also has a lot of burning in her feet. OBJECTIVE: Vital signs: Blood pressure is 144/69, heart rate of 101, respiratory rate of 18, temperature of 98.7 degrees. Cardiovascular: Regular rate and rhythm. Pulmonary: Bilateral breath sounds. Clear to auscultation. GI: Soft, nontender, nondistended. LABORATORY DATA: White count 7, hemoglobin and hematocrit 12 and 40, platelets 303,000. Basic was normal. All of her stool studies thus far have been pretty unremarkable. Her stool culture was ordered but it was never done. ASSESSMENT AND PLAN: 1. Persistent diarrhea with unclear source. Clostridium difficile is negative. Most of the testing is negative thus far. I am going to start to give her some antimotility agents. 2. Cellulitis. We will continue treatment with vancomycin. I am going to go ahead and stop her metformin because sometimes that can cause diarrhea as well. 3. Type 2 diabetes. Aware. We will continue to monitor her blood sugars and follow closely. DISPOSITION: We are looking at placement. Reportedly this was supposed to happen today. We will continue to follow. cc: Charanjit Mueller MD
[2019-07-26] MEDS: VANCOMYCIN 2,000 MG in NS 500 ML IV SCH (15:44)
[2019-07-26] MEDS: LIORESAL PO SCH (22:03)
[2019-07-26] MEDS: RISPERDAL PO SCH (22:04)
[2019-07-27] MEDS: IMODIUM PO PRN (06:51)
[2019-07-27] MEDS: NORCO-7.5 PO PRN ×3 (06:53→21:39)
[2019-07-27] MEDS: VOLTAREN 1% GEL TOP PRN (06:53)
[2019-07-27 06:55] LABS: BASO# 0.06 X1000 (0.0-0.2); BASO% 0.7 % (0.0-0.8); EOS# 0.43 X1000 (0.0-0.7); EOS% 5.1 % (0.0-10.0); HEMATOCRIT 39.3 % (37.0-47.0); HEMOGLOBIN 11.7 g/dL (12.0-16.0); IMM GRAN# 0.04 X1000 (0.0-0.04); IMM GRAN% 0.5 % (0.0-0.5); LYMPH# 2.13 X1000 (1.2-3.4); MCH 25.4 PG (27-31); MCHC 29.8 g/dL (33-37); MCV 85.2 FL (81-99); MONO# 0.76 X1000 (0.11-0.59); MONO% 8.9 % (1.7-9.3); MPV 9.2 FL (7.4-10.4); NEUT# 5.09 X1000 (1.4-6.5); NEUT% 59.8 % (42.2-75.2); PLT 319 X1000 (130-400); RBC 4.61 XMIL (4.2-5.4); RDW 15.4 % (11.5-14.5); WBC 8.51 X1000 (4.8-10.8)
[2019-07-27] MEDS: CALMOSEPTINE OINTMENT TOP PRN ×2 (06:57→08:26)
[2019-07-27 07:22] LABS: AGAP 13; BUN 5 mg/dL (8-22); CHLORIDE 107 mmol/L (98-107); COSMO 285; CREATININE 0.5 mg/dL (0.5-0.9); ESTIMATED GFR > 60; GLUCOSE 150 mg/dL (70-104); POTASSIUM 4.2 mmol/L (3.5-5.1); SODIUM 143 mmol/L (136-145); TCO2 24 mmol/L (25-35)
[2019-07-27] MEDS: CYMBALTA PO SCH ×2 (09:21→21:38)
[2019-07-27] MEDS: DEPAKOTE ER PO SCH ×2 (09:22→21:38)
[2019-07-27] MEDS: KLOR-CON PO SCH (09:23)
[2019-07-27] MEDS: NEURONTIN PO SCH ×3 (09:23→21:38)
[2019-07-27] MEDS: VANCOMYCIN 2,000 MG in NS 500 ML IV SCH (15:09)
[2019-07-27] MEDS: TYLENOL PO PRN (17:25)
[2019-07-27] MEDS: LIORESAL PO SCH (21:38)
[2019-07-27] MEDS: RISPERDAL PO SCH (21:38)
[2019-07-28] MEDS: NORCO-7.5 PO PRN ×3 (06:24→21:32)
--- NOTE | 2019-07-28 07:39 | PROGRESS NOTE ---
DATE: 07/28/2019 SUBJECTIVE: The patient has no major complaints. She seems to be doing okay. Diarrhea has improved and no multiple bowel movements have been recorded. OBJECTIVE: Vital signs: Blood pressure 167/71. Heart rate 91. Respiratory rate 20. Temperature 98.3 degrees, 93% on room air. Cardiovascular: Regular rate and rhythm. Pulmonary: Bilateral breath sounds. Clear to auscultation. GI: Soft. Nontender, nondistended. Bowel sounds were positive. LABORATORY DATA: White count 8. H and H 11 and 39. Platelets 319,000. ASSESSMENT: 1. Diarrhea, presumed infectious, but no clear source. Continue supportive treatment 2. Cellulitis of bilateral lower extremities. She will continue vancomycin and follow. 3. Type 2 diabetes. Follow blood sugar. DISPOSITION: Waiting on long-term placement. We will continue to follow. cc: Charanjit Mueller MD MTDD
[2019-07-28] MEDS: NEURONTIN PO SCH ×3 (09:53→21:33)
[2019-07-28] MEDS: DEPAKOTE ER PO SCH ×2 (09:53→21:33)
[2019-07-28] MEDS: KLOR-CON PO SCH (09:53)
[2019-07-28] MEDS: CYMBALTA PO SCH ×2 (09:53→21:32)
[2019-07-28] MEDS: VANCOMYCIN 2,000 MG in NS 500 ML IV SCH (15:26)
--- NOTE | 2019-07-28 20:11 | PROGRESS NOTE ---
DATE: 07/28/2019 SUBJECTIVE: Patient notes that her feet are on fire. Her abdomen is still hurting and burning at times. Still very tired, fatigued and weak. Denies any fevers, chills. Denies nausea, vomiting. Denies any urinary complications. OBJECTIVE: Vital signs: Temperature 97.7, pulse 89, respiratory rate 18, BP 145/67. General: Patient is awake, alert, pleasant to talk with. She is in no distress. HEENT: Normocephalic. Neck: Supple. Cardiovascular: Regular rate. Chest: Clear. Abdomen: Soft, morbidly obese, diffusely tender. Extremities: Moves all extremities. Neurologic: No changes. ASSESSMENT: 1. Persistent diarrhea. 2. Cellulitis. 3. Neuropathy. 4. Morbid obesity. 5. Type 2 diabetes. PLAN: We will continue patient in the hospital. Continue vancomycin. Further orders as needed. cc: Darron Brody MD
[2019-07-28] MEDS: LIORESAL PO SCH (21:33)
[2019-07-28] MEDS: RISPERDAL PO SCH (21:33)
[2019-07-29] MEDS: TYLENOL PO PRN (03:38)
[2019-07-29 06:08] LABS: HEMATOCRIT 35.1 % (37.0-47.0); HEMOGLOBIN 10.5 g/dL (12.0-16.0); MCH 25.4 PG (27-31); MCHC 29.9 g/dL (33-37); MPV 9.2 FL (7.4-10.4); RBC 4.13 XMIL (4.2-5.4); RDW 15.2 % (11.5-14.5); WBC 7.26 X1000 (4.8-10.8)
[2019-07-29 06:23] LABS: AGAP 9; BUN 6 mg/dL (8-22); CALCIUM 7.9 mg/dL (8.8-10.2); CHLORIDE 103 mmol/L (98-107); COSMO 280; CREATININE 0.5 mg/dL (0.5-0.9); ESTIMATED GFR > 60; GLUCOSE 150 mg/dL (70-104); POTASSIUM 4.1 mmol/L (3.5-5.1); SODIUM 140 mmol/L (136-145); TCO2 28 mmol/L (25-35)
[2019-07-29] MEDS: CYMBALTA PO SCH ×2 (10:49→21:25)
[2019-07-29] MEDS: DEPAKOTE ER PO SCH ×2 (10:50→21:26)
[2019-07-29] MEDS: NORCO-7.5 PO PRN ×2 (10:50→18:27)
[2019-07-29] MEDS: NEURONTIN PO SCH ×3 (10:51→21:25)
[2019-07-29] MEDS: KLOR-CON PO SCH (10:52)
[2019-07-29] MEDS: ZOFRAN IV PRN (11:41)
[2019-07-29] MEDS: VANCOMYCIN 2,100 MG in NS 500 ML IV SCH (14:06)
[2019-07-29] MEDS: LIORESAL PO SCH (21:25)
[2019-07-29] MEDS: RISPERDAL PO SCH (21:26)
--- NOTE | 2019-07-29 21:57 | PROGRESS NOTE ---
DATE: 07/29/2019 SUBJECTIVE: Patient notes she is still having abdominal pain, still having burning in her feet. She is currently eating breakfast. PHYSICAL EXAMINATION: Vital Signs: Temperature 98.4 degrees, pulse 98, respiratory rate 18, BP 136/67. General: Patient is a morbidly obese female who currently appears to be in no respiratory distress. She appears to be tolerating her omelet well this morning. HEENT: Normocephalic. Neck: Supple. Cardiovascular: Regular rate. Chest: Clear, nonlabored. Abdomen: Soft, obese, diffusely, but minimally tender. Extremities: Moves all extremities. ASSESSMENT: 1. Persistent diarrhea. 2. Cellulitis. 3. Type 2 diabetes. PLAN: We will continue vancomycin for her infection. Continue to follow blood pressures as well as her blood sugars. Further orders as needed. cc: Darron Brody MD
[2019-07-29] MEDS: VOLTAREN 1% GEL TOP PRN (22:04)
[2019-07-30] MEDS: NORCO-7.5 PO PRN ×3 (00:43→20:33)
[2019-07-30] MEDS ORDERED: ZOFRAN IV ONE (09:25)
[2019-07-30] MEDS ORDERED: TRANSDERM-SCOP TD ONE (09:26)
[2019-07-30] MEDS: KLOR-CON PO SCH (09:41)
[2019-07-30] MEDS: NEURONTIN PO SCH ×3 (09:42→20:33)
[2019-07-30] MEDS: DEPAKOTE ER PO SCH ×2 (09:42→20:33)
[2019-07-30] MEDS: CYMBALTA PO SCH ×2 (09:45→20:33)
[2019-07-30] MEDS: VANCOMYCIN 2,100 MG in NS 500 ML IV SCH (14:39)
[2019-07-30] MEDS: RISPERDAL PO SCH (20:33)
[2019-07-30] MEDS: IMODIUM PO PRN (20:33)
[2019-07-30] MEDS: LIORESAL PO SCH (20:33)
--- NOTE | 2019-07-31 00:14 | PROGRESS NOTE ---
DATE: 07/30/2019 SUBJECTIVE: Patient still complains of abdominal pain, burning in her feet, nausea. She has been refusing physical therapy most days. PHYSICAL EXAMINATION: Vital Signs: Temperature 98 degrees, pulse 84, respiratory 18, BP 148/70. General: Patient is a morbidly obese female who currently is in no respiratory distress. HEENT: Normocephalic. Neck: Supple. Cardiovascular: Regular rate. Chest: Clear, nonlabored. Abdomen: Soft, obese, nondistended. Extremities: Moves all extremities although generalized weakness. ASSESSMENT: 1. Diarrhea, appears to be stable. 2. Cellulitis, improved. 3. Type 2 diabetes. 4. Morbid obesity. 5. Hypertension. PLAN: We will continue in the hospital. Continue antibiotics. Continue to encourage physical therapy. Further orders as needed. cc: Darron Brody MD
[2019-07-31] MEDS: TYLENOL PO PRN ×2 (00:44→11:30)
[2019-07-31 07:30] LABS: AGAP 9; BUN 4 mg/dL (8-22); CALCIUM 8.2 mg/dL (8.8-10.2); CHLORIDE 101 mmol/L (98-107); COSMO 282; CREATININE 0.4 mg/dL (0.5-0.9); ESTIMATED GFR > 60; GLUCOSE 143 mg/dL (70-104); SODIUM 142 mmol/L (136-145); TCO2 32 mmol/L (25-35)
[2019-07-31] MEDS: CLEOCIN PO SCH ×3 (08:36→21:43)
[2019-07-31] MEDS: NEURONTIN PO SCH ×3 (08:36→21:40)
[2019-07-31] MEDS: DEPAKOTE ER PO SCH ×2 (08:37→21:45)
[2019-07-31] MEDS: KLOR-CON PO SCH (08:37)
[2019-07-31] MEDS: CYMBALTA PO SCH ×2 (08:37→21:45)
[2019-07-31] MEDS: NORCO-7.5 PO PRN ×2 (08:50→21:44)
--- NOTE | 2019-07-31 15:24 | PROGRESS NOTE ---
DATE: 07/31/2019 SUBJECTIVE: Patient has no new complaints. She has been refusing physical therapy, refusing to move, refusing baths. PHYSICAL EXAM: Vital Signs: Temperature 97.9, pulse 84, respiratory rate 18, BP 148/70. General: Patient is a morbidly obese female, who is in no current respiratory distress. HEENT: Normocephalic. Neck: Supple. Cardiovascular: Regular rate. Chest: Clear. Abdomen: Soft, obese, nondistended. Extremities: She is noted to move all extremities, although generalized weakness. ASSESSMENT: 1. Adult failure to thrive with generalized weakness. 2. Type 2 diabetes. 3. Morbid obesity. 4. Persistent diarrhea that seems to have resolved. 5. Cellulitis. PLAN: We will continue patient in the hospital. We will change to p.o. antibiotics. Discussed with her the importance of this patient with physical therapy and will follow. cc: Darron Brody MD
[2019-07-31] MEDS: RISPERDAL PO SCH (21:45)
[2019-07-31] MEDS: LIORESAL PO SCH (21:45)
[2019-08-01] MEDS: CLEOCIN PO SCH ×3 (04:52→16:09)
[2019-08-01] MEDS: CYMBALTA PO SCH ×2 (08:53→21:55)
[2019-08-01] MEDS: NEURONTIN PO SCH ×3 (08:54→21:53)
[2019-08-01] MEDS: DEPAKOTE ER PO SCH ×2 (08:55→21:55)
[2019-08-01] MEDS: KLOR-CON PO SCH (08:56)
[2019-08-01] MEDS: NORCO-7.5 PO PRN ×3 (09:00→21:53)
--- NOTE | 2019-08-01 12:27 | PROGRESS NOTE ---
DATE: 08/01/2019 SUBJECTIVE: Patient still has multiple complaints. Notes that she is nauseated, feels as though her stomach hurts at times. Still has burning and pain in her bilateral lower extremities. Still not participating well with physical therapy. OBJECTIVE: Temperature 98, pulse 80, respiratory rate 18, blood pressure 133/68.General: Patient is awake, currently in no distress. She is pleasant. HEENT: Normocephalic. Neck: Supple. Cardiovascular: Regular rate. Chest: Clear, nonlabored. Abdomen: Soft, obese. Extremities: Moves all extremities. Skin: She still has chronic edematous and erythematous changes in bilateral lower extremities. ASSESSMENT: 1. Cellulitis, appears to be improving. We did switch her to clindamycin yesterday, and it certainly could be contributing to her stomach issues today. Continue clindamycin today. If the stomach does not improved, then we will certainly attempt to change antibiotics. 2. Type 2 diabetes. 3. Morbid obesity. 4. Adult failure to thrive. Patient will require physical therapy cc: Darron Brody MD MTDD
[2019-08-01] MEDS: RISPERDAL PO SCH (21:54)
[2019-08-01] MEDS: LIORESAL PO SCH (21:55)
[2019-08-02] MEDS: CLEOCIN PO SCH ×2 (00:08→08:20)
[2019-08-02 06:46] LABS: HEMOGLOBIN 11.6 g/dL (12.0-16.0); MCH 25.3 PG (27-31); MCHC 29.7 g/dL (33-37); MPV 9.1 FL (7.4-10.4); RBC 4.59 XMIL (4.2-5.4); RDW 15.1 % (11.5-14.5); WBC 6.16 X1000 (4.8-10.8)
[2019-08-02 07:11] LABS: AGAP 12; ALBUMIN 3.5 g/dL (3.5-5.0); ALKALINE PHOSPHATASE 83 U/L (32-104); BUN 4 mg/dL (8-22); CALCIUM 8.5 mg/dL (8.8-10.2); CHLORIDE 98 mmol/L (98-107); COSMO 283; CREATININE 0.5 mg/dL (0.5-0.9); ESTIMATED GFR > 60; GLUCOSE 160 mg/dL (70-104); GOT 20 U/L (10-30); GPT 23 U/L (10-36); POTASSIUM 4.4 mmol/L (3.5-5.1); SODIUM 142 mmol/L (136-145); TCO2 33 mmol/L (25-35)
[2019-08-02] MEDS: CYMBALTA PO SCH ×2 (08:20→20:58)
[2019-08-02] MEDS: NEURONTIN PO SCH ×3 (08:21→20:58)
[2019-08-02] MEDS: DEPAKOTE ER PO SCH ×2 (08:21→20:58)
[2019-08-02] MEDS: KLOR-CON PO SCH (08:21)
[2019-08-02] MEDS: VOLTAREN 1% GEL TOP PRN (08:24)
[2019-08-02] MEDS: NORCO-7.5 PO PRN ×3 (08:33→20:59)
--- NOTE | 2019-08-02 14:10 | PROGRESS NOTE ---
DATE: 08/02/2019 SUBJECTIVE: The patient has no new complaints. PHYSICAL EXAMINATION: Vital Signs: Reviewed. Temp 98 degrees, pulse 75, respiratory rate 18, BP 134/71. General: Patient is awake. She is in no respiratory distress. HEENT: Normocephalic. Neck: Supple. Cardiovascular: Regular rate. Chest: Clear, nonlabored. Abdomen: Soft, obese, nondistended. Extremities: Moves all extremities. ASSESSMENT: 1. Nausea. We are going to start her on reflux medicine. She has had complaints of nausea for several days with doses of different medicines to no avail. 2. Intermittent but persistent diarrhea of undetermined origin. 3. Diabetes. 4. Cellulitis, improved. PLAN: We will continue patient in the hospital. Continue to follow. Hopefully can transition to rehab soon. cc: Darron Brody MD
[2019-08-02] MEDS: PROTONIX PO SCH (14:42)
[2019-08-02] MEDS: LIORESAL PO SCH (20:57)
[2019-08-02] MEDS: RISPERDAL PO SCH (20:58)
[2019-08-03] MEDS: PROTONIX PO SCH (06:27)
[2019-08-03] MEDS: NORCO-7.5 PO PRN ×3 (06:34→18:20)
[2019-08-03] MEDS: CYMBALTA PO SCH ×2 (08:40→21:42)
[2019-08-03] MEDS: KLOR-CON PO SCH (08:40)
[2019-08-03] MEDS: DEPAKOTE ER PO SCH ×2 (08:40→21:40)
[2019-08-03] MEDS: NEURONTIN PO SCH ×3 (08:40→21:41)
[2019-08-03] MEDS: DIFLUCAN PO SCH (08:52)
[2019-08-03] MEDS: VOLTAREN 1% GEL TOP PRN (12:14)
--- NOTE | 2019-08-03 19:06 | PROGRESS NOTE ---
DATE: 08/03/2019 SUBJECTIVE: The patient notes that she is having a sore throat. States that she is having some raspy voice, still having abdominal pain, still having burning in her bilateral lower extremities. States her nausea seems a little bit better. PHYSICAL: Temperature 98, pulse 99, respiratory 18, BP 129/72.General: Patient is awake, currently she is in no respiratory distress. Her voice does sound more raspy than it has in the past. It is certainly a softer volume. HEENT: Normocephalic. Neck: Supple. CV: Regular rate. Chest: Clear, nonlabored. Abdomen: Soft, obese, diffusely but minimally tender. Extremities: Moves all extremities. She still has brawny edematous changes bilateral lower extremities. ASSESSMENT: We stopped her clindamycin as it was felt as though she may have had a rash to this. The rash seems to have resolved. Hopefully she will not need to restart antibiotics at this point. She is also having a raspy voice, I started her on Diflucan in case she is having some yeast from her previous antibiotics. She is still having persistent diarrhea although much improved. Hopefully if her sore throat improves she can transition to rehab tomorrow. cc: Darron Brody MD
[2019-08-03] MEDS: RISPERDAL PO SCH (21:41)
[2019-08-03] MEDS: LIORESAL PO SCH (22:00)
[2019-08-03] MEDS: TYLENOL PO PRN (22:33)
[2019-08-04] MEDS: NORCO-7.5 PO PRN ×4 (00:36→21:22)
[2019-08-04] MEDS: PROTONIX PO SCH (06:50)
[2019-08-04] MEDS: NEURONTIN PO SCH ×5 (08:09→21:22)
[2019-08-04] MEDS: CYMBALTA PO SCH ×2 (08:12→21:22)
[2019-08-04] MEDS: KLOR-CON PO SCH (08:12)
[2019-08-04] MEDS: DIFLUCAN PO SCH (08:12)
[2019-08-04] MEDS: DEPAKOTE ER PO SCH ×2 (08:12→21:22)
[2019-08-04] MEDS: VOLTAREN 1% GEL TOP PRN (08:14)
--- NOTE | 2019-08-04 13:58 | PROGRESS NOTE ---
DATE: 08/04/2019 SUBJECTIVE: Patient reports feeling still very tired and weak. She reports working with physical therapy and she is feeling optimistic because she feels that she is regaining her strength back. No diarrhea. Some nausea still present but no vomiting. OBJECTIVE: Vital Signs: Temperature 98 degrees, heart rate 103, respiratory rate 18, blood pressure 163/77. O2 saturation 98% on room air. General Examination: This is a chronically ill- appearing, 73-year-old female lying in bed, in no acute distress. Cardiovascular: S1, S2 heard. No murmurs, gallops, or rubs. Regular rate and rhythm. Respiratory: Clear bilaterally to auscultation. No work of breathing or using accessory muscles. Abdomen: Soft, nontender to palpation. Bowel sounds present. No organomegaly. Extremities: No clubbing, cyanosis, or edema. Peripheral pulses present in both legs. Neurological: Patient alert and oriented x3. Moves 4 extremities. LABORATORY DATA: No labs from today. ASSESSMENT AND PLAN: 1. Acute diarrhea. That condition is resolved. We were told that there has been persistent gastroenteritis; in any case, that condition is no longer present. So, at this point, we will continue to monitor. 2. Bilateral lower extremity cellulitis. Patient has been on vancomycin then she was on clindamycin. Overall, this patient is doing okay. This condition is resolved. We will continue with the same management. 3. Diabetes mellitus type 2. We will continue with sliding scale insulin. Accu-Chek before meals and also at bedtime. 4. Physical deconditioning. The patient reports feeling very weak but working with physical therapy. She feels that she is improving her mobility. We have been informed by the social worker assistant that to our big surprise the coverage for a rehab facility has been. We will plan to appeal that decision as it is definitely completely and evidently wrong, because this patient needs to go to a rehab facility so we will see what the insurance company has to say. cc: Jae Martin MD
[2019-08-04] MEDS: CARAFATE LIQUID PO SCH ×2 (14:42→21:21)
[2019-08-04] MEDS: LIORESAL PO SCH (21:23)
[2019-08-04] MEDS: RISPERDAL PO SCH (21:23)
[2019-08-05] MEDS: CARAFATE LIQUID PO SCH ×4 (04:00→20:56)
[2019-08-05] MEDS: PROTONIX PO SCH (06:53)
[2019-08-05] MEDS: CYMBALTA PO SCH ×2 (08:45→20:49)
[2019-08-05] MEDS: NEURONTIN PO SCH ×3 (08:45→20:50)
[2019-08-05] MEDS: DIFLUCAN PO SCH (08:46)
[2019-08-05] MEDS: NORCO-7.5 PO PRN ×3 (08:46→20:56)
[2019-08-05] MEDS: DEPAKOTE ER PO SCH ×2 (08:46→20:50)
[2019-08-05] MEDS: KLOR-CON PO SCH (08:46)
--- NOTE | 2019-08-05 13:12 | PROGRESS NOTE ---
DATE: 08/05/2019 SUBJECTIVE: Patient reports still some mild abdominal pain that comes and goes but generally speaking she is feeling better. OBJECTIVE: Vital Signs: Temperature 97.9 degrees, heart rate 97, respiratory 16, blood pressure 163/90, O2 saturation 100% on room air. General Examination: This is a chronically ill- appearing, 73-year-old female lying in bed, in no acute distress. Cardiovascular: S1, S2 heard. No murmurs, gallops, or rubs. Regular rate and rhythm. Respiratory: Clear bilaterally to auscultation. No work of breathing or using accessory muscles. Abdomen: Soft, nontender to palpation. Bowel sounds present. No organomegaly. Extremities: No clubbing, cyanosis, or edema. Peripheral pulses present in both legs. Neurological: Patient alert and oriented x3. Moves 4 extremities. ASSESSMENT AND PLAN: 1. Acute diarrhea. That condition is resolved. 2. Bilateral lower extremity cellulitis resolved. The patient has been on clindamycin and vancomycin for 10 days. 3. Diabetes mellitus type 2. We will continue with sliding scale insulin. Accu-Chek before meals and also at bedtime. 4. Physical deconditioning. The patient is feeling very weak but working with physical therapy and she reports feeling better. Unfortunately, her insurance company has denied coverage even though she truly needs to go to rehab facility so at this point, we will see what other options do we have to offer to her. industrial relations worker is involved in her case. cc: Jae Martin MD
[2019-08-05] MEDS: RISPERDAL PO SCH (20:50)
[2019-08-05] MEDS: LIORESAL PO SCH (20:50)
[2019-08-05] MEDS: HUMALOG (PARKWAY) SUBQ SCH (23:48)
[2019-08-06] MEDS: CARAFATE LIQUID PO SCH ×4 (01:42→20:07)
[2019-08-06] MEDS: HUMALOG (PARKWAY) SUBQ SCH ×4 (06:31→20:07)
[2019-08-06] MEDS: PROTONIX PO SCH (06:31)
[2019-08-06] MEDS: DIFLUCAN PO SCH (08:48)
[2019-08-06] MEDS: NEURONTIN PO SCH ×3 (08:48→20:07)
[2019-08-06] MEDS: CYMBALTA PO SCH ×2 (08:48→20:07)
[2019-08-06] MEDS: DEPAKOTE ER PO SCH ×2 (08:48→20:07)
[2019-08-06] MEDS: KLOR-CON PO SCH (08:48)
[2019-08-06] MEDS: NORCO-7.5 PO PRN ×2 (08:54→20:07)
[2019-08-06] MEDS: GLUCOPHAGE PO SCH (18:06)
[2019-08-06] MEDS: VOLTAREN 1% GEL TOP PRN (18:08)
--- NOTE | 2019-08-06 18:32 | PROGRESS NOTE ---
DATE: 08/06/2019 SUBJECTIVE: Patient reports feeling fine. Blood sugar has been mildly elevated. We have restarted her metformin today. OBJECTIVE: Vital Signs: Temperature 97.9 degrees, heart rate 91, respiratory rate 18, blood pressure 150/70, O2 saturation 98% on room air. General Examination: This is a morbidly obese, 73-year-old female lying in bed, in no acute distress. Cardiovascular: S1, S2 heard. No murmurs, gallops, or rubs. Regular rate and rhythm. Respiratory: Clear bilaterally to auscultation. No work of breathing. Not using accessory muscles. Abdomen: Soft, nontender to palpation. Bowel sounds present. No organomegaly. Extremities: No clubbing, cyanosis, or edema. Peripheral pulses present in both legs. Neurological: Patient alert oriented x3. Moves all 4 extremities. ASSESSMENT AND PLAN: 1. Acute diarrhea, resolved. 2. Bilateral lower extremity cellulitis, resolved. The patient has received vancomycin and clindamycin for 10 days. 3. Diabetes mellitus type 2. We will continue with sliding scale insulin and Accu-Chek before meals and also at bedtime. 4. Physical deconditioning. The patient is feeling weak. Work on physical therapy. DISPOSITION: At this point, the patient is medically stable. We are coordinating with social work job titles what options we have for her because of her rehab facility coverage has been denied by her insurance company even though to my understanding she may need to go; although, home health is going to be another option for her. The patient reports she does not have any home yet. She does not have any home. She is homeless. So, we will coordinate with social work job titles and case management for what else we can do for this patient. cc: Jae Martin MD
[2019-08-06] MEDS: RISPERDAL PO SCH (20:07)
[2019-08-06] MEDS: LIORESAL PO SCH (20:08)
[2019-08-07] MEDS: CARAFATE LIQUID PO SCH ×4 (02:55→20:47)
[2019-08-07] MEDS: HUMALOG (PARKWAY) SUBQ SCH ×4 (06:17→20:51)
[2019-08-07] MEDS: PROTONIX PO SCH (06:31)
[2019-08-07] MEDS: NEURONTIN PO SCH ×5 (07:50→20:48)
[2019-08-07] MEDS: DEPAKOTE ER PO SCH ×3 (07:51→20:50)
[2019-08-07] MEDS: KLOR-CON PO SCH ×2 (07:51→09:17)
[2019-08-07] MEDS: CYMBALTA PO SCH ×3 (07:51→20:49)
[2019-08-07] MEDS: GLUCOPHAGE PO SCH ×3 (07:51→16:18)
[2019-08-07] MEDS: DIFLUCAN PO SCH ×2 (07:51→09:16)
[2019-08-07] MEDS: NORCO-7.5 PO PRN ×3 (07:57→21:00)
--- NOTE | 2019-08-07 11:11 | PROGRESS NOTE ---
DATE: 08/07/2019 SUBJECTIVE: Patient reports feeling fine. Denies any fever or chills. OBJECTIVE: Vital Signs: Temperature 98 degrees, heart rate 95, respiratory rate 18, blood pressure 137/84, O2 saturation 97% on room air. General: This is a chronically ill-appearing, morbidly obese, 73-year-old female lying in bed, in no acute distress. Cardiovascular: S1, S2 heard. No murmurs, gallops, or rubs. Regular rate and rhythm. Respiratory: Clear bilaterally to auscultation. No work of breathing or using accessory muscles. Abdomen: Soft, nontender to palpation. Bowel sounds present. No organomegaly. Extremities: No clubbing, cyanosis, or edema. Peripheral pulses present in both legs. Neurological: Patient is alert and oriented x3. Moves 4 extremities. ASSESSMENT AND PLAN: 1. Acute diarrhea. That condition is resolved. 2. Bilateral lower extremity cellulitis, resolved. The patient received vancomycin and clindamycin for 10 days. 3. Diabetes mellitus type 2. We will continue with sliding scale insulin and Accu-Chek before meals and also at bedtime. 4. Physical deconditioning. Patient is working with Physical Therapy. The patient requires 100% support because he is bedbound. 5. Disposition. At this point, we are working on placement for this patient. Patient does not have any home to go so we will be talking with the case finishing machine adjuster and psychiatric social worker. cc: Jae Martin MD
[2019-08-07] MEDS: LIORESAL PO SCH (20:49)
[2019-08-07] MEDS: RISPERDAL PO SCH (20:49)
[2019-08-08] MEDS: TYLENOL PO PRN (00:58)
[2019-08-08] MEDS: CARAFATE LIQUID PO SCH ×4 (01:00→20:45)
[2019-08-08] MEDS: PROTONIX PO SCH (06:54)
[2019-08-08] MEDS: NORCO-7.5 PO PRN ×2 (06:54→17:57)
[2019-08-08] MEDS: HUMALOG (PARKWAY) SUBQ SCH ×4 (06:55→20:46)
--- NOTE | 2019-08-08 10:15 | PROGRESS NOTE ---
DATE: 08/08/2019 SUBJECTIVE: Patient reports feeling fine. No complaints at this time. OBJECTIVE: Vital Signs: Temperature 97.5 degrees, heart rate 91, respiratory rate 18, blood pressure 128/71, O2 saturation 98% on room air. General examination: This is a morbidly obese, 73-year-old female, lying in bed in no acute distress. Cardiovascular exam: S1, S2 heard. No murmurs, gallops, or rubs. Regular rate and rhythm. Respiratory exam: Clear bilaterally to auscultation. No work of breathing or using accessory muscles. Abdomen: Soft, nontender to palpation. Bowel sounds present. No organomegaly. Extremities: No clubbing, cyanosis, or edema. Peripheral pulses present in both legs. Neurological exam: Patient alert and oriented x3. Moves 4 extremities. LABORATORY DATA: None. ASSESSMENT AND PLAN: 1. Acute diarrhea, resolved. 2. Bilateral lower extremity cellulitis, resolved. 3. Diabetes mellitus type 2. We will continue with Accu-Cheks before meals and also at bedtime, and sliding scale insulin as well. 4. Physical deconditioning. The patient is requiring 100% support because she is bed-bound. Physical therapy working with her. 5. Disposition: At this point, we will keep this patient over the weekend considering that we will not have manager social services, and when manager social services is back and dependency case manager, we will discuss what other options do we have for this patient. The patient's company has denied coverage for her, which is something that I do not understand because she truly needs rehabilitation facility. cc: Jae Martin MD
[2019-08-08] MEDS: KLOR-CON PO SCH (11:06)
[2019-08-08] MEDS: CYMBALTA PO SCH ×2 (11:06→20:45)
[2019-08-08] MEDS: NEURONTIN PO SCH ×3 (11:07→20:46)
[2019-08-08] MEDS: GLUCOPHAGE PO SCH ×2 (11:07→17:58)
[2019-08-08] MEDS: DEPAKOTE ER PO SCH ×2 (11:07→20:45)
[2019-08-08] MEDS: DIFLUCAN PO SCH (11:07)
[2019-08-08] MEDS: RISPERDAL PO SCH (20:45)
[2019-08-08] MEDS: LIORESAL PO SCH (20:46)
[2019-08-08] MEDS: VOLTAREN 1% GEL TOP PRN (20:53)
[2019-08-09] MEDS: NORCO-7.5 PO PRN ×4 (00:01→18:54)
[2019-08-09] MEDS: PROTONIX PO SCH (06:22)
[2019-08-09] MEDS: CARAFATE LIQUID PO SCH ×4 (06:22→20:35)
[2019-08-09] MEDS: HUMALOG (PARKWAY) SUBQ SCH ×4 (06:23→21:21)
[2019-08-09] MEDS: GLUCOPHAGE PO SCH ×2 (08:02→16:10)
[2019-08-09] MEDS: NEURONTIN PO SCH ×3 (08:02→20:35)
[2019-08-09] MEDS: DEPAKOTE ER PO SCH ×2 (08:02→20:35)
[2019-08-09] MEDS: CYMBALTA PO SCH ×2 (08:02→20:36)
[2019-08-09] MEDS: KLOR-CON PO SCH (08:03)
[2019-08-09] MEDS: DIFLUCAN PO SCH (08:03)
--- NOTE | 2019-08-09 10:40 | PROGRESS NOTE ---
DATE: 08/09/2019 SUBJECTIVE: The patient reports some vaginal discharge and also some itching in skin folds around the perineal area. OBJECTIVE: Vital Signs: Temperature 97.9 degrees, heart rate 98, respiratory rate 18, blood pressure 117/67, O2 saturation 97% on room air General: This is a morbidly obese, 73-year-old female lying in bed, in no acute distress. Cardiovascular: S1, S2 heard. No murmurs, gallops, or rubs. Regular rate and rhythm. Respiratory: Clear bilaterally to auscultation. No work of breathing or using accessory muscles. Abdomen: Soft, nontender to palpation. Bowel sounds present. No organomegaly. Extremities: No clubbing, cyanosis, or edema. Peripheral pulses present in both legs. Neurologic: Patient is alert and oriented x3. Moves 4 extremities. LABORATORY DATA: Reviewed. ASSESSMENT AND PLAN: 1. Acute diarrhea, resolved. 2. Bilateral lower extremities cellulitis, resolved. 3. Diabetes mellitus type 2. We will continue with Accu-Chek before meals and also at bedtime and sliding scale insulin as well. 4. Vaginal candidiasis. Will start ketoconazole 200 mg p.o. daily. 5. Physical deconditioning. The patient required 100% support because she is bed-bound. Physical therapy working with her. 6. Disposition. At this point, we are going to talk with the corrections caseworker and director social welfare to see what we can do for this patient. Request for a rehab facility has been denied by the insurance company which is something that does not make any sense because this patient truly needs rehab. cc: Jae Martin MD
[2019-08-09] MEDS: VOLTAREN 1% GEL TOP PRN (16:04)
[2019-08-09] MEDS: LIORESAL PO SCH (20:35)
[2019-08-09] MEDS: RISPERDAL PO SCH (20:35)
[2019-08-10] MEDS: NORCO-7.5 PO PRN (01:22)
[2019-08-10] MEDS: CARAFATE LIQUID PO SCH ×3 (01:22→15:02)
[2019-08-10] MEDS: HUMALOG (PARKWAY) SUBQ SCH ×3 (06:16→16:13)
[2019-08-10] MEDS: PROTONIX PO SCH (06:16)
[2019-08-10] MEDS: DEPAKOTE ER PO SCH (08:11)
[2019-08-10] MEDS: GLUCOPHAGE PO SCH ×2 (08:11→16:13)
[2019-08-10] MEDS: NEURONTIN PO SCH ×2 (08:11→15:02)
[2019-08-10] MEDS: KLOR-CON PO SCH (08:11)
[2019-08-10] MEDS: CYMBALTA PO SCH (08:12)
[2019-08-10] MEDS ORDERED: SPORANOX PO SCH (09:00)
--- NOTE | 2019-08-10 10:21 | PROGRESS NOTE ---
DATE: 08/10/2019 SUBJECTIVE: The patient reports feeling better, less vaginal discharge. No other complaints noted. OBJECTIVE: Vital Signs: Temperature 97.7 degrees, heart rate 79, respiratory rate 20, blood pressure 123/61, O2 saturation 99% on room air. General Examination: This is a 73-year-old chronically ill-appearing and morbidly obese, female lying in bed, in no acute distress. Cardiovascular: S1, S2 heard. No murmurs, gallops, or rubs. Regular rate and rhythm. Respiratory: Clear bilaterally to auscultation. No work of breathing or using accessory muscles. Abdomen: Soft, nontender to palpation. Bowel sounds present. No organomegaly. Extremities: No clubbing, cyanosis, or edema. Peripheral pulses present in both legs. Neurological: Patient is alert and oriented x3. Moves 4 extremities. ASSESSMENT AND PLAN: 1. Acute diarrhea, resolved. 2. Bilateral lower extremity cellulitis, resolved. 3. Diabetes mellitus type 2. We will continue with Accu-Chek before meals and also at bedtime and sliding scale insulin as well. 4. Vaginal candidiasis. We will continue with itraconazole 200 mg p.o. daily. 5. Physical deconditioning. Patient unfortunately required 100% support because she is bed- bound. Physical therapy working with this patient. 6. Disposition. At this point, patient does not have any place to go. When she decided to leave [facility], she was planning to go home but apparently her home has been turned down, so at this point, she does not have any place to go. She reports that she is going to have her check tomorrow in case she needs to stay in a hotel or in another facility. The patient is bed-bound so it will be very difficult to place this patient. Also her insurance company has refused coverage for a rehab facility which does not make any sense considering that she really and truly needs 100% support and she was responding to physical therapy. cc: Jae Martin MD
--- NOTE | 2019-08-10 11:15 | DISCHARGE SUMMARY ---
ADMISSION DATE: 07/24/2019 DISCHARGE DATE: 08/10/2019 DISCHARGE DIAGNOSES: 1. Diarrhea. 2. Gastroenteritis. 3. Vaginal candidiasis. 4. Bilateral lower extremity cellulitis, resolved. 5. Diabetes mellitus type 2. 6. Physical deconditioning. DISCHARGE DISPOSITION: Home with home health. CONSULTATIONS: None. PROCEDURES: Abdomen and pelvis CT showed no definite acute pathology by CT. HOSPITAL COURSE: In brief, this is a 73-year-old, morbidly obese, female who presented to the emergency department here at [facility] with 2 to 3 times diarrhea for the last 10 days. Apparently, she was dehydrated but she was admitted for treatment of diarrhea. We have checked so far C. difficile and ova and parasites on stool studies, and everything was negative. Also, the patient was complaining of abdominal pain so a CT of the abdomen was checked with results as above. The patient was placed on IV antibiotics that she received for 11 days for bilateral lower extremity cellulitis. That condition was resolved. A few days after, she complained of some vaginal discharge so I think that she developed vaginal candidiasis so she is going to receive isoconazole for a week. The patient now is medically stable. She is going to be discharged in stable condition. DISCHARGE PHYSICAL EXAMINATION: Vital Signs: Temperature 97.7 degrees, heart rate 79, respiratory rate 20, blood pressure 123/61, O2 saturation 99% on room air. General Examination: This is a morbidly obese, 53-year-old, female lying in bed, in no acute distress. Cardiovascular Examination: S1 and S2 heard. No murmurs, gallops, or rubs. Regular rate and rhythm. Respiratory Examination: Clear bilaterally to auscultation. No work of breathing or using accessory muscles. Abdomen is soft, nontender to palpation. Bowel sounds present. No organomegaly. Extremities: No clubbing, cyanosis, or edema. Peripheral pulses present in both legs. Neurological Examination: The patient is alert and oriented x3. Moves 4 extremities. FOLLOWUP: With Dr. Randolph in a week. MEDICATIONS: 1. Holt 5 mg 1 tablet p.o. every 4 hours as needed. 2. Metformin 500 mg 1 tablet p.o. b.i.d. 3. Pantoprazole 40 mg 1 tablet p.o. daily. 4. Itraconazol 200 mg 1 tablet p.o. daily. 5. Zofran 4 mg 1 tablet p.o. every 6 hours as needed for nausea. 6. Duloxetine 20 mg 1 tablet p.o. daily. 7. Risperidone 0.5 mg 1 tablet p.o. at bedtime. 8. Baclofen 10 mg 1 tablet p.o. daily. 9. Gabapentin 900 mg 1 tablet p.o. 3 times per day. cc: Jae Martin MD MTDD
[2019-08-10 15:43] VITALS: BP 146/77
== END 2019-08-10 16:33 | disposition home health service (06) | DRG 392 ==
LOC: P.ED 10:46 → P.MEDSURG 10:46 → OBSVTOIN 18:43 → SUATTDRO 18:43 → P.MEDSURG 07-31 12:10
PROVIDERS: ATTEND Internal Medicine

== ENCOUNTER 2019-08-15 18:33 | Inpatient (IN) ==
[2019-08-15 19:09] LABS: BASO# 0.05 X1000 (0.0-0.2); BASO% 0.6 % (0.0-0.8); EOS# 0.17 X1000 (0.0-0.7); EOS% 1.9 % (0.0-10.0); HEMATOCRIT 44.9 % (37.0-47.0); IMM GRAN# 0.04 X1000 (0.0-0.04); IMM GRAN% 0.5 % (0.0-0.5); LYMPH# 1.92 X1000 (1.2-3.4); LYMPH% 21.8 % (20.5-51.1); MCH 25.5 PG (27-31); MCHC 31.2 g/dL (33-37); MCV 81.6 FL (81-99); MONO# 0.86 X1000 (0.11-0.59); MONO% 9.8 % (1.7-9.3); MPV 8.9 FL (7.4-10.4); NEUT# 5.75 X1000 (1.4-6.5); NEUT% 65.4 % (42.2-75.2); PLT 358 X1000 (130-400); RDW 14.9 % (11.5-14.5); WBC 8.79 X1000 (4.8-10.8)
[2019-08-15 19:26] LABS: AGAP 17; ALBUMIN 4.4 g/dL (3.5-5.0); ALKALINE PHOSPHATASE 87 U/L (32-104); BUN 8 mg/dL (8-22); CHLORIDE 99 mmol/L (98-107); COSMO 286; CREATININE 0.6 mg/dL (0.5-0.9); ESTIMATED GFR > 60; GLUCOSE 208 mg/dL (70-104); GOT 23 U/L (10-30); GPT 21 U/L (10-36); POTASSIUM 4.4 mmol/L (3.5-5.1); SODIUM 141 mmol/L (136-145); TCO2 26 mmol/L (25-35); TOTAL PROTEIN 7.6 g/dL (6.3-8.3)
[2019-08-15] MEDS ORDERED: ZOFRAN IV ONE (19:32)
[2019-08-15] MEDS: NS 1,000 ML IV SCH (19:45)
--- NOTE | 2019-08-15 19:46 | EKG Report ---
Test Performed on : 08/15/2019 7:20:14 PM Test Reason : tachycardia Blood Pressure : / mmHG Vent. Rate : 096 BPM Atrial Rate : 096 BPM P-R Int : 136 ms QRS Dur : 078 ms QT Int : 370 ms P-R-T Axes : 023 -21 020 degrees QTc Int : 467 ms Normal sinus rhythm. 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
--- NOTE | 2019-08-15 21:37 | PROVIDER DOCUMENTATION ---
This chart was entered by April Kaminski Scribe, acting as scribe for Zack Anderson MD. HPI-Abdominal Pain/GI Problem - General Chief Complaint: Diarrhea Stated Complaint: N/V/D Time Seen by Provider: 08/15/19 19:17 Source: patient Allergies/Adverse Reactions: Patient Allergies Allergy/AdvReac Type Severity Reaction Status Date / Time codeine Allergy RASH Verified 08/15/19 18:57 Penicillins Allergy RASH Verified 08/15/19 18:57 Home Medications: Home Medication List Medication Instructions Recorded Confirmed Last Taken Type NK [No Home Medications] 08/15/19 08/15/19 Unknown History - History of Present Illness-ABD Nature of Presenting Problems: 73 yowf arrives to er via ems for c/o d/v/n x 1 month, rlq dull abd pain, sore throat, and dysuria. pt was in hospital for 1 wk at [facility] end of last month for similar symptoms. pt was in [facility] up until 07/11/19, signed out, sts was there to try and get her home fixed but had been living in hotels w/family. family at bedside sts that pt had syncopal episode and ems brought her to hospital last week. pt has no pcp, never been to GI dr. pt has hx of Dm, not controlled stably, no metformin since being at [facility] and had insulin when in hospital until 08/10/19. pt has bilat pitting edema LE. pt is obese, has trouble moving around. denies cp and sob. pt sts she was tired of "sitting in her own urine for hours" at home so that was why she went to [facility]. pt was seen yesterday at [facility] for same symptoms. "pt 73YOWF presents to the ER via EMS. Patient reports calling EMS for diarrhea and nausea. She reports she has been seen by [facility] and was released on 08/10/19 and was seen at [facility] for the same thing last night and was again released. Patient states she has had chronic diarrhea since 2017 but is unable to get around anymore. EMS reports that [facility] will not take the patient back, they must find some where else to stay. Patient reports that she has no where else to go but here. I have spoken with the structural steel worker about the case. 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 After, [facility] at [facility]. structural steel worker states no more can be done from her end. structural steel worker also reports that patient has a R nephrology social worker and needs to follow up with her." Abdominal Pain Onset Location: reports: RLQ Quality of Pain: reports: dull Severity in ED: reports: mild Onset/Duration: reports: other (1 month) Timing: reports: still present Activities at Onset: reports: none Modifying Factors: improves with: nothing Review of Systems - Adult - REVIEW OF SYSTEMS - ADULT Constitutional: reports: no symptoms reported. denies: fever, fatique, night sweats Eyes: reports: no symptoms reported Ears, Nose, Mouth & Throat: reports: see HPI, throat pain. denies: mouth swelling, hoarseness, throat swelling Cardiovascular: reports: no symptoms reported. denies: chest pain, edema, palpitations Respiratory: reports: no symptoms reported. denies: pleurisy, shortness of breath, wheezing Gastrointestinal: reports: see HPI, abdominal pain, diarrhea, vomiting. denies: constipation, difficulty swallowing, rectal bleeding Genitourinary: reports: see HPI, dysuria. denies: hematuria, hesitency, incontinence Musculoskeletal: reports: no symptoms reported Integumentary: reports: no symptoms reported Neurological: reports: no symptoms reported Psychiatric: reports: no symptoms reported Endocrine: reports: no symptoms reported Hematologic/Lymphatic: reports: no symptoms reported Allergic/Immunologic: reports: no symptoms reported All Other Systems: Reviewed and Negative Past History - Adult - PAST MEDICAL HISTORY-ADULT Review of Records: reports: Old Records Reviewed, Nursing Assessment Review, Medications Reviewed, Social history reviewed & non-contributory. Major Childhood Illnesses: reports: denies history Cardiovascular: reports: denies history Respiratory: reports: denies history Gastrointestinal: reports: other (chronic diarrhea) Obstetrical/Gynecological: reports: denies history Genitourinary: reports: denies history Musculoskeletal: reports: denies history Neurological: reports: CVA Endocrine/Immune: reports: Diabetes Other Conditions: reports: denies history - PRIOR SURGERIES/PROCEDURES Surgical/Procedure History: reports: appendectomy, hysterectomy - IMMUNIZATION STATUS Childhood Immunizations: See Nurse Assessment Flu Vaccine: See Nurse Assessment - FAMILY HISTORY Family History: reviewed, not pertinent - SOCIAL HISTORY Smoking: non-smoker Substance Use: none/never Physical Exam-General - PHYSICAL EXAM-ADULT Initial Vital Signs Reviewed: Yes - CONSTITUTIONAL General Appearance: appears well, alert, no apparent distress, obese. negative: cachetic, anxious, lethargic - EYES Eyes: PERRL/EOMI, pink conjunctivae - HEAD, EARS, NOSE, MOUTH & THROAT HENMT: normocephalic/atraumatic, moist mucous membranes, normal ENT inspection, pharynx normal. negative: pharyngeal erythema, tonsillar exudate - NECK Neck: non-tender, full range of motion, supple, normal inspection - RESPIRATORY Respiratory: chest non-tender, lungs clear, normal breath sounds - CARDIOVASCULAR Cardiovascular: normal peripheral pulses, regular rate, rhythm - GASTROINTESTINAL (ABDOMEN) Abdominal Exam: normal bowel sounds, soft, no organomegaly, no pulsatile mass, tenderness (rlq, llq, and luq to percussion). negative: non tender, guarding, rigid, rebound - LYMPHATIC Lymphatic: no adenopathy - MUSCULOSKELETAL Back Exam: normal inspection, no CVA tenderness, no vertebral tenderness Extremity: normal range of motion, normal inspection, tenderness (pt has extreme problems and tenderness with trying to sit up), other (pt has vascular isufficiencies to bilat LE and bilat LE pitting edema 3-4+). negative: non-tender, abnormal NV exam, deformity, pulse deficit Peripheral Pulses: radial (R): 2+, radial (L): 2+ - SKIN Integumentary: normal color, normal turgor, warm/dry - NEUROLOGIC Neurologic: grossly normal, no motor/sensory deficits, other (hydroelectric mechanic II-XII norm) - PSYCHIATRIC Psych/Mental Status: normal mood/affect, normal thought content, normal thought process, oriented x 3 Progress - PLAN OF CARE/RESULTS Progress/Plan/Lab Results: Vital Signs - 8 hr 08/15/19 18:42 Temperature 98.6 F Pulse Rate 109 H Respiratory Rate 20 Blood Pressure 163/92 O2 Sat by Pulse Oximetry 94 L Laboratory Results - last 24 hr 08/15/19 08/15/19 18:53 18:53 WBC 8.79 RBC 5.50 H Hgb 14.0 Hct 44.9 MCV 81.6 MCH 25.5 L MCHC 31.2 L RDW Std Deviation 14.9 H Plt Count 358 MPV 8.9 Immature Gran % (Auto) 0.5 Neut % (Auto) 65.4 Lymph % (Auto) 21.8 [place] % (Auto) 9.8 H Eos % (Auto) 1.9 Baso % (Auto) 0.6 Immature Gran # (Auto) 0.04 Neut # (Auto) 5.75 Lymph # (Auto) 1.92 [place] # (Auto) 0.86 H Eos # (Auto) 0.17 Baso # (Auto) 0.05 Sodium 141 Potassium 4.4 Chloride 99 Carbon Dioxide 26 Anion Gap 17 BUN 8 Creatinine 0.6 Estimated GFR/1.73 m2 > 60 BUN/Creatinine Ratio 13 Glucose 208 H Calculated Osmolality 286 Calcium 10.0 Total Bilirubin 0.40 AST 23 ALT 21 Alkaline Phosphatase 87 Total Protein 7.6 Albumin 4.4 Globulin 3.0 Albumin/Globulin Ratio 1.0 Orders Category Date Time Status Saline Loc NOW Care 08/15/19 18:58 Active C DIFF TOXIN [STOOL] Stat Lab 08/15/19 19:30 Uncollected CBC WITH ELECTRONIC DIFF [HEME] Stat Lab 08/15/19 18:53 Completed COMPREHENSIVE METABOLIC PANEL [CHEM] Stat Lab 08/15/19 18:[address] W/POSS RFLX CULT [URINALYSIS] Stat Lab 08/15/19 19:30 Uncollected Generalized Adult Illness >60 Stat Oth 08/15/19 18:40 Ordered EKG [EKG] Stat Ther 08/15/19 18:40 Ordered Result Diagrams: 08/15/19 18:53 08/15/19 18:53 - EKG 1 Time of EKG reading by physician:: 19:20 EKG Read and Signed by:: Zack Anderson EKG Interpretation (*Must complete 3 of following elements*): Abnormal Rate: 96 (inferior infarct, age undetermined ) Rhythm: NSR [place]: normal QRS: normal RI Interval: normal ST Wave: normal Comments: possible anterior infarct, age undetermined. - CONSULTS/PCP/HOSPITALIST Notification #1 *Consult/PCP/Hospitalist*: Dr. hines Time Discussed: 19:46 Consult Disposition: other (Call [facility] for admission.) #2 Consult: Dr. Brody Time Discussed: 21:28 Consult Disposition: Admit Departure - Departure Date of Disposition Decision: 08/15/19 Time of Disposition Decision: 20:30 DIAGNOSIS: Generalized weakness Diarrhea Qualifiers: Diarrhea type: unspecified type Qualified Code(s): R19.7 - Diarrhea, unspecified Disposition: ADMITTED INPATIENT 09 Certified Medical Emergency: Emergent Condition: Stable Referrals and Follow-Ups: None,PCP [Primary Care Provider] - - Critical Care Note This patient required my direct & personal management of CC.: No Attestation - Physician/ OLGA LIDIA Attestation Patient care was provided by Advanced Practice Provider:: No The physician spent face to face time with patient:: Yes Advanced Practice Provider documentation review:: Supervising physician onsite and consulted in the evaluation and care of this patient. The physician did have a face to face encounter with the patient. This chart was documented by the indicated scribe, (April Kaminski Scribe) and accurately reflects the services I performed and decisions made by me, Zack Anderson MD, as attested by the provider's signature.
--- NOTE | 2019-08-16 03:15 | HISTORY AND PHYSICAL ---
CHIEF COMPLAINT: Diarrhea. HISTORY OF PRESENT ILLNESS: The patient is a very difficult 73-year-old female who unfortunately has been in and out of the hospital and rehab several times over the past 2 to 3 months. She was in [facility] up until 07/11/2019 and signed herself out. She came back to the hospital the following few weeks stating that she had been at home. She had been sitting in her own urine. She had diarrhea for a month. Had been living in and out of hotels with family. Unfortunately, patient's morbid obesity causes it difficult to be able to move her around. She was in [place] just recently for several days and then seen at [facility] for the same thing. She apparently was just at [facility] as well and released. She has a history of chronic diarrhea since 2017. She had full stool studies done while she was in the hospital a few weeks ago that were negative including CT. Her metformin was held to see if this was causing any of her diarrhea. ALLERGIES: Codeine and penicillin causing a rash. PAST MEDICAL HISTORY: Diabetes, morbid obesity, rheumatoid arthritis, chronic diarrhea. SURGICAL HISTORY: She has had bilateral carpal tunnel, TMJ surgery, right breast lumpectomy, hysterectomy, right rotator cuff and right knee surgery. MEDICATIONS: I do not have an accurate medication list currently. SOCIAL HISTORY: She lives with her boyfriend. Denies smoking or drinking. FAMILY HISTORY: Positive for hypertension but essentially noncontributory to her current illness. PHYSICAL EXAMINATION: VITAL SIGNS: Temperature 99.5 degrees, pulse 94 to 101, respiratory rate 18, BP 117/65 to 144/82, saturation 100% on room air. GENERAL: Patient is awake, alert, currently in no respiratory distress. HEENT: Normocephalic. NECK: Supple. CARDIOVASCULAR: Regular rate. CHEST: Clear. ABDOMEN: Soft. EXTREMITIES: Moves all extremities. NEUROLOGIC: No focal changes. ASSESSMENT: 1. Diabetes with hyperglycemia. 2. Morbid obesity. 3. Chronic diarrhea. 4. Adult failure to thrive. 5. Hypertension. PLAN: We are going to admit the patient to the hospital. Recheck her stool studies. Continue to hold metformin. Place her on sliding scale insulin. Continue patterned Accu-Cheks. Recheck her labs in the a.m. Further orders as needed. cc: Darron Brody MD
[2019-08-16] MEDS: NS 1,000 ML IV SCH (04:15)
[2019-08-16] MEDS: TYLENOL PO PRN ×2 (04:18→13:30)
[2019-08-16] MEDS: ZOFRAN IV PRN ×2 (04:18→13:28)
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
[2019-08-16 04:40] LABS: URINE SOURCE CLEAN CATCH
[2019-08-16 04:44] LABS: BILIRUBIN URINE NEGATIVE (NEGATIVE); BLOOD URINE SMALL (NEGATIVE); COLOR YELLOW; GLUCOSE URINE NEGATIVE (NEGATIVE); KETONE URINE NEGATIVE (NEGATIVE); LEUKOCYTES URINE LARGE (NEGATIVE); NITRITE URINE POSITIVE (NEGATIVE); PROTEIN URINE 30 mg/dL (NEGATIVE); SP GRAVITY URINE 1.022; TURBIDITY URINE HAZY (CLEAR); UR EPITHELIAL CELLS <10 /HPF (<10); URINE BACTERIA 1+ /HPF; URINE RBC <10 /HPF (<10); URINE WBC TNTC /HPF (<10); UROBILINOGEN URINE NORMAL (NORMAL)
[2019-08-16] MEDS: HUMALOG SUBQ SCH ×4 (06:29→20:02)
[2019-08-16 07:52] LABS: HEMATOCRIT 40.8 % (37.0-47.0); HEMOGLOBIN 12.7 g/dL (12.0-16.0); MCH 26.4 PG (27-31); MCHC 31.1 g/dL (33-37); MCV 84.8 FL (81-99); RBC 4.81 XMIL (4.2-5.4); RDW 15.2 % (11.5-14.5); WBC 8.68 X1000 (4.8-10.8)
[2019-08-16 08:13] LABS: HEMOGLOBIN A1C 7.4 % (4.8-6.0)
[2019-08-16 08:32] LABS: AGAP 13; ALB/GLOB RATIO 1.2; ALBUMIN 3.8 g/dL (3.5-5.0); ALKALINE PHOSPHATASE 73 U/L (32-104); BUN 9 mg/dL (8-22); CHLORIDE 103 mmol/L (98-107); COSMO 284; CREATININE 0.6 mg/dL (0.5-0.9); ESTIMATED GFR > 60; GLUCOSE 177 mg/dL (70-104); GOT 17 U/L (10-30); GPT 18 U/L (10-36); MAGNESIUM 1.8 mg/dL (1.5-2.7); POTASSIUM 3.9 mmol/L (3.5-5.1); SODIUM 141 mmol/L (136-145); TCO2 25 mmol/L (25-35); TOTAL BILIRUBIN 0.39 mg/dL (0.20-1.00); TOTAL PROTEIN 6.9 g/dL (6.3-8.3)
--- NOTE | 2019-08-16 13:01 | PROGRESS NOTE ---
DATE: 08/16/2019 SUBJECTIVE: This morning, Ms. Peck referred to be hurting everywhere, especially the lower extremity and the abdomen. She said she got admitted because for the past 2 months, she just had chronic diarrhea, moving about 3 times her bowels and anytime she eats, it is just watery. OBJECTIVE: Vital Signs: Blood pressure is 147/58, pulse of 78, respirations are 24, temperature is 98.5 degrees. General Examination: Ms. Peck is a 73-year-old, elderly, female. She is in bed. HEENT: Mucosa is pink and moist. Anicteric. Acyanotic. Neck: Supple. Chest: Good air entry bilaterally. There were no crepitations. No rhonchi. Cardiovascular: Regular rate and rhythm. Abdomen: Soft. It is distended but nontender. There is an old infraumbilical surgical scar. Bowel sounds are present but remarkably reduced. Extremities: About 2+ pedal edema. There is remarkable bilateral lower erythematous changes, consistent with stasis dermatitis which looks remarkably more red and warm and tender. [place]: The patient is awake, alert, and oriented. She is not able to move the left lower extremity but the upper extremity moves well. The right side moves pretty well. She says she had an old stroke which paralyzed her left lower leg. Ms. Peck has not walked in almost 3 years. Laboratory Data: Completely normal CBC with mild, probably low-normal MCV. Chemistry is completely normal. The A1c is 7.4. Urine is slightly pathological. The patient did complain of urine symptoms. ASSESSMENT: 1. Chronic diarrhea of unclear etiology. The patient had a CT scan about 2 weeks ago. It was fairly unremarkable. However, she feels more pain now in these couple of days than before so we will repeat it. The patient's stool cultures including Clostridium difficile have all been ordered. We are still pending collection. 2. Diabetes mellitus. 3. Bilateral lower extremity chronic stasis dermatitis with possible superimposed cellulitis. We will start the patient on Keflex. 4. 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 5. Immobility with bedbound for the past 3 years. 6. Morbid obesity with body mass index of 43.8. 7. Neuropathy, presumably from diabetes and I also wonder if the gastrointestinal symptoms are related to any diabetic enteropathy. cc: MD Darron Edmondson MD
[2019-08-16] MEDS: NEURONTIN PO SCH ×2 (13:27→20:01)
[2019-08-16] MEDS: CULTURELLE PO SCH ×2 (13:28→20:01)
--- NOTE | 2019-08-16 13:42 | Diag Imaging Result Doc PS360 ---
ABDOMEN FLAT/UPRIGHT - 08/16/2019 INDICATION: N/V/D, LLQ Pain COMPARISON: CT abdomen pelvis 07/24/2019 FINDINGS: There is a right renal stone. Nonobstructive bowel gas pattern. No free air. IMPRESSION: Right renal stone. Electronically signed by Jj Ricci 08/16/2019 1:40 PM
[2019-08-16] MEDS: NORCO-5 PO PRN ×2 (16:38→22:42)
[2019-08-16] MEDS: KEFZOL 1 GM/D5W 1 GM/50 ML IVPB IV SCH (16:43)
[2019-08-17] MEDS: KEFZOL 1 GM/D5W 1 GM/50 ML IVPB IV SCH ×3 (00:28→17:16)
[2019-08-17] MEDS: TYLENOL PO PRN (02:28)
[2019-08-17] MEDS: HUMALOG SUBQ SCH ×4 (06:37→20:26)
[2019-08-17] MEDS: NEURONTIN PO SCH ×3 (09:42→21:03)
[2019-08-17] MEDS: CULTURELLE PO SCH ×2 (09:42→20:25)
[2019-08-17] MEDS: LASIX IV SCH (10:30)
[2019-08-17] MEDS: NORCO-5 PO PRN ×2 (13:35→20:25)
--- NOTE | 2019-08-17 20:01 | PROGRESS NOTE ---
DATE: 08/17/2019 SUBJECTIVE: This morning Ms. Peck refers to be doing well. She says she has not had any more diarrhea. As a matter of fact her stool studies are still pending and has not had any movement. OBJECTIVE: Vital signs: Blood pressure is 157/66, pulse of 73, respirations 20, temperature 98.0 degrees. Patient is saturating 97% on room air. General: Ms. Peck is a 73-year-old female. She is in bed, no distress. Morbidly obese. Chest: Air entry is bilaterally reduced but no crepitations. No rhonchi. Cardiovascular: Regular rate and rhythm. Gastrointestinal: Abdomen is soft, is distended but nontender. There is an old infraumbilical surgical scar. Bowel sounds are remarkably reduced. Extremities: About 2+ pedal edema with chronic stasis dermatitis, erythematous changes in the lower extremity bilaterally. There is some warmness to it, which I think there is a superimposed cellulitis. Central nervous system: Patient is awake, alert, and oriented. She is not able to move the left lower extremity at all. The right side moves pretty well, and the left upper extremity also moves pretty well. The patient refers to have had an old stroke, which paralyzed her left lower leg. Ms. Peck has been bedbound for the past 3 years. LABORATORY DATA: None for today. Glucose is 150. MEDICATIONS: Have all been reviewed. She has been on cefazolin for the lower extremity suspected cellulitis, and she is also showing gram-negative rocío in the urine. ASSESSMENT: 1. Chronic diarrhea of unclear etiology. Ms Peck does not want any investigations to be done. She was sent for CT scan, which she had declined. She was also sent for inflammatory bowel serologies, which she had declined. She has been advised to follow up with GI as outpatient. She has been ordered stool studies to rule out any infectious etiology; however, she has not been able to give any stool. 2. Intractable nausea and vomiting on presentation. That seems to have resolved. She has not had any documented episode in the hospital. 3. Diabetes mellitus. A1c of 7.4. Patient is on insulin regimen. 4. Bilateral lower extremity chronic stasis dermatitis with possible superimposed cellulitis. The patient is on Keflex. 5. Gram-negative rocío urinary tract infection. Patient is on Keflex. 6. 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 The patient alleges that. 7. Morbid obesity with BMI of 43.8. 8. Lower extremity neuropathy. The patient has been started back on her home Neurontin. 9. Immobility with bedbound for the past 3 years. DISPOSITION: Ms. Peck was actually discharged today; however, she said she has no home to go to. Social Work and Case Management are trying to place her. I understand there is a place called [facility], which is part of [facility] institution at [place] that has agreed to accept Ms. Peck for long-term. Unfortunately, she will need to be evaluated by the [facility] for any psychiatric clearance. I understand that will take some time before that is done so we will wait until she is cleared to go to the long-term facility at [place]. Case Management and Social Work are on board. cc: MD Darron Edmondson MD MTDNi
[2019-08-18] MEDS: KEFZOL 1 GM/D5W 1 GM/50 ML IVPB IV SCH ×4 (01:01→23:24)
[2019-08-18] MEDS: NORCO-5 PO PRN ×4 (01:49→22:10)
[2019-08-18] MEDS: HUMALOG SUBQ SCH ×4 (06:16→22:09)
[2019-08-18] MEDS: NEURONTIN PO SCH ×3 (06:20→22:10)
[2019-08-18] MEDS: CULTURELLE PO SCH ×2 (08:33→22:10)
--- NOTE | 2019-08-18 10:35 | Diag Imaging Result Doc PS360 ---
CHEST-PORTABLE - 08/18/2019 INDICATION: rehab placement COMPARISON: 07/11/2019 FINDINGS: Heart size is borderline. Pulmonary vascularity is normal. No infiltrates or edema. No pneumothorax or pleural effusion. IMPRESSION: No acute disease or change from prior. Electronically signed by Jj Ricci 08/18/2019 10:33 AM
--- NOTE | 2019-08-18 15:07 | PROGRESS NOTE ---
DATE: 08/18/2019 SUBJECTIVE: No acute events overnight. No changes compared with yesterday. OBJECTIVE: Vital Signs: Temperature 97.9, pulse 66, respiratory rate 18, blood pressure 144/75, oxygen saturation 97 on room air. HEENT: Head normocephalic. No trauma. PERRLA. Neck: Supple. No JVD. No masses. Central trachea. Chest: Decreased breath sounds bilaterally. No rhonchi, no rales. Cardiovascular: RRR. Abdomen: Soft, protuberant, a little bit distended, nontender to palpation, bowel sounds reduced but present. Extremities: 2+ lower extremity edema with chronic dermatitis, some redness noted and is warm. Neurological examination: This patient is sleepy but arousable. She is oriented. She is not able to move her left lower extremity. Her right side and left upper extremity seems to be doing well, and apparently she has been bedbound for some time now at least 3 years. LABORATORY: Glucose 120. ASSESSMENT AND PLAN: 1. Chronic diarrhea of unclear etiology. She has been refusing lab work and images for this. 2. Intractable nausea and vomiting on presentation, resolved. 3. Type 2 diabetes with a hemoglobin A1c of 7.4. Continue with the same management. 4. Bilateral lower extremity chronic stasis dermatitis with possible superimposed cellulitis, continue antibiotics. 5. Proteus mirabilis urinary tract infection. This patient has been on Keflex, which is sensitive. 6. Morbid obesity with a body mass index of 43.8. Aware. 7. Previous cerebrovascular accident with left lower extremity weakness. Aware. 8. Lower extremity neuropathy. Continue with Neurontin. This patient is full code and bedbound. resort manager and social work administrator on board pending placement for her. cc: MD Darron Andrews MD
[2019-08-19] MEDS: TYLENOL PO PRN ×4 (01:42→23:15)
[2019-08-19] MEDS: NEURONTIN PO SCH ×3 (06:14→22:29)
[2019-08-19] MEDS: HUMALOG SUBQ SCH ×3 (06:14→23:23)
[2019-08-19] MEDS: NORCO-5 PO PRN ×3 (06:19→20:33)
[2019-08-19] MEDS: CULTURELLE PO SCH ×2 (08:43→22:29)
[2019-08-19] MEDS: KEFZOL 1 GM/D5W 1 GM/50 ML IVPB IV SCH ×2 (08:43→15:38)
[2019-08-19] MEDS ORDERED: IMODIUM PO PRN (10:19)
--- NOTE | 2019-08-19 11:03 | PROGRESS NOTE ---
DATE: 08/19/2019 SUBJECTIVE: This patient is still having diarrhea. I will go ahead and repeat the Clostridium difficile antigen and toxin. She does have a positive Clostridium difficile toxin result that is negative, but I would like to evaluate the antigen. She has been refusing lab work, and I believe images from before. She is tolerating p.o. OBJECTIVE: Vital Signs: Temperature 98 degrees, pulse 72, respiratory rate 18, blood pressure 124/63, oxygen saturation 100% on room air. HEENT: Head normocephalic. No trauma. PERRLA. Neck: Supple. No JVD. No masses. Central trachea. Chest: Clear to auscultation. Some crepitus at the bases. Abdomen: Soft, protuberant. A little bit distended. Nontender to palpation. Positive bowel sounds. Extremities: There is 2+ to 3+ lower extremity edema with chronic stasis dermatitis, redness noted, also is warm. Neurological: The patient is alert. She is oriented. She is complaining of diarrhea. She has morbid obesity. LABORATORY DATA: She refused laboratory today. Glucose check showed a blood sugar of 177. ASSESSMENT AND PLAN: 1. Chronic diarrhea of unclear etiology. I will go ahead and repeat the Clostridium difficile toxin and antigen. Her previous Clostridium difficile toxin was negative. I will also use a little bit of loperamide. She seems to be tolerating by mouth. She has been refusing some lab work. 2. Intractable nausea and vomiting on presentation, resolved. 3. Type 2 diabetes with a hemoglobin A1c of 7.4. Continue with the same management. 4. Bilateral lower extremity chronic stasis dermatitis with possible superimposed cellulitis. She has been placed on antibiotics. Today is day #3. 5. Proteus mirabilis urinary tract infection. Continue with the same management. I do not think she is symptomatic. 6. Morbid obesity with a body mass index of 43.8. Aware. 7. Previous cerebrovascular accident with left lower extremity weakness. Aware. 8. Lower extremity neuropathy. Continue with Neurontin. cc: Sin Briggs MD
[2019-08-19 20:28] LABS: AGAP 11; BUN 4 mg/dL (8-22); CALCIUM 8.8 mg/dL (8.8-10.2); CHLORIDE 103 mmol/L (98-107); COSMO 278; CREATININE 0.5 mg/dL (0.5-0.9); ESTIMATED GFR > 60; GLUCOSE 160 mg/dL (70-104); POTASSIUM 3.5 mmol/L (3.5-5.1); SODIUM 139 mmol/L (136-145); TCO2 25 mmol/L (25-35)
[2019-08-20] MEDS: KEFZOL 1 GM/D5W 1 GM/50 ML IVPB IV SCH ×2 (01:18→08:55)
[2019-08-20] MEDS: NORCO-5 PO PRN ×3 (03:40→20:58)
[2019-08-20] MEDS: NEURONTIN PO SCH ×3 (05:31→20:59)
[2019-08-20] MEDS: HUMALOG SUBQ SCH ×4 (06:18→21:26)
[2019-08-20 07:33] LABS: HEMATOCRIT 38.4 % (37.0-47.0); HEMOGLOBIN 12.1 g/dL (12.0-16.0); MCHC 31.5 g/dL (33-37); MCV 82.4 FL (81-99); MPV 8.8 FL (7.4-10.4); RBC 4.66 XMIL (4.2-5.4); RDW 14.7 % (11.5-14.5); WBC 6.97 X1000 (4.8-10.8)
[2019-08-20 07:50] LABS: MAGNESIUM 1.8 mg/dL (1.5-2.7); PHOSPHORUS 2.9 mg/dL (2.7-4.5)
[2019-08-20 07:53] LABS: AGAP 13; BUN 4 mg/dL (8-22); CALCIUM 8.7 mg/dL (8.8-10.2); CHLORIDE 105 mmol/L (98-107); COSMO 285; CREATININE 0.5 mg/dL (0.5-0.9); ESTIMATED GFR > 60; GLUCOSE 123 mg/dL (70-104); POTASSIUM 3.3 mmol/L (3.5-5.1); SODIUM 144 mmol/L (136-145); TCO2 26 mmol/L (25-35)
[2019-08-20] MEDS ORDERED: KLOR-CON PO ONE (07:53)
[2019-08-20] MEDS ORDERED: MAGNESIUM SULFATE 2 GM/S.W.I. 2 GM/50 ML IVPB IV ONE (07:53)
[2019-08-20] MEDS: CULTURELLE PO SCH ×2 (08:55→20:59)
[2019-08-20] MEDS: VITAMIN D PO SCH (16:16)
[2019-08-20] MEDS: LASIX IV SCH (16:16)
--- NOTE | 2019-08-20 16:17 | PROGRESS NOTE ---
DATE: 08/20/2019 SUBJECTIVE: The patient complains of pain and swelling in her lower extremities. She also complains of persistent diarrhea that has been going on since June. OBJECTIVE: Vital Signs: Temperature 97.9 degrees, blood pressure 149/68, heart rate 73, respirations 18, O2 saturation 99% on room air. General: This is a morbidly obese female lying in bed in no acute distress. Heart: S1, S2 normal. Regular rate and rhythm. Lungs: Equal air entry bilaterally. No wheezing. No rales. No rhonchi. Abdomen: Positive bowel sounds, soft, obese, nontender, nondistended. Extremities: 3+ edema with erythema involving both lower extremities. Neurologic: The patient is alert and oriented x3. LABORATORY: Sodium 144, potassium 3.3, chloride 105, CO2 26, BUN 4, creatinine 0.5, glucose 123. Vitamin D level 10.9. White blood cell count 6.9. ASSESSMENT AND PLAN: 1. Bilateral lower extremity cellulitis. The patient is currently on cefazolin. Will consult with Dr. Bauer for assistance with antibiotic choice. 2. Peripheral edema. We will start the patient on diuretic therapy and monitor her response. 3. Morbid obesity. The patient has been counseled about weight loss and proper diet. 4. Hypokalemia. Will replace the patient's potassium. 5. Vitamin D deficiency. Will start the patient on vitamin D replacement. 6. Diabetes mellitus type 2. Continue on Humalog. Will also start the patient on metformin. 7. Deep vein thrombosis prophylaxis. Will start the patient on Lovenox. DISPOSITION: Drum Sprayer is working on long-term placement for the patient. cc: Sonia Live MD MTDD
[2019-08-20] MEDS: KEFZOL 2 GM/D5W 2 GM/50 ML IVPB IV SCH (17:06)
[2019-08-20] MEDS: GLUCOPHAGE PO SCH (17:06)
--- NOTE | 2019-08-20 18:04 | INFECTIOUS DISEASE CONSULT REP ---
DATE: 08/20/2019 CONCLUSIONS: The patient has bilateral leg cellulitis. RECOMMENDATIONS: I agree with treating the patient with Ancef. I have increased the dose to 2 g IV every 8 hours. Also, I have ordered that the patient should have the foot of the bed elevated with the manual gauge continuously. DISCUSSION: The patient says that for the past 3 years she has had swelling and erythema of her legs, and she has not been able to walk. Her studies thus far show a CBC with a white count of 6970, hemoglobin 12.1, platelet count 296,000, and creatinine is 0.5. GFR is greater than 60. LITIGATION LEGAL SECRETARY HISTORY: She is a 3, para 2, AB 1. She has had a hysterectomy. REVIEW OF SYSTEMS: Eyes and Ears: The patient is blind in her right eye. Her hearing is okay. Neck: No stiffness. Respiratory: No cough or shortness of breath. Cardiac: No chest pain or palpitations. GI: For the past month, the patient says she has been having diarrhea. : No dysuria or flank pain. Neurologic: The patient does not have seizures. She is bedridden. She can't walk. She can move her right leg a little bit, but can hardly move her left leg at all. LITIGATION LEGAL SECRETARY HISTORY: The patient is 3 para 2, AB 1. She has had a hysterectomy. PREVIOUS HOSPITALIZATIONS AND OPERATIONS: She has had 2 labor and deliveries, a miscarriage and a hysterectomy. She has had a right shoulder surgery, surgery on the temporomandibular joint, carpal tunnel surgery, and surgery on her knee. She has also had foot surgery. MEDICAL DISEASES: Positive for obesity, diabetes mellitus, stroke and osteoarthritis. INFECTIOUS DISEASE HISTORY: Positive for pneumonia and UTI. FAMILY HISTORY: Unknown by the patient because she is adopted. SOCIAL HISTORY: The patient lives in a long-term. She as mentioned above has been bedridden. The patient does not smoke cigarettes, drink alcoholic beverages or abuse drugs. At the long-term, her medicines are cephalexin and Culturelle. ALLERGIES: The patient has an allergy to codeine and penicillin. The patient had hives to penicillin, but she has been getting cefazolin and is tolerating it well. The patient is also allergic to IV contrast. Thank you for the consult. cc: Oleg Bauer MD
[2019-08-20] MEDS: LOVENOX SUBQ SCH (20:59)
[2019-08-21] MEDS: TYLENOL PO PRN
[2019-08-21] MEDS: ZOFRAN IV PRN (03:09)
[2019-08-21] MEDS: LASIX IV SCH ×2 (06:29→17:26)
[2019-08-21] MEDS: NEURONTIN PO SCH ×3 (06:29→17:40)
[2019-08-21] MEDS: HUMALOG SUBQ SCH ×4 (06:30→21:10)
[2019-08-21] MEDS: CULTURELLE PO SCH ×2 (08:47→21:10)
[2019-08-21] MEDS: KEFZOL 2 GM/D5W 2 GM/50 ML IVPB IV SCH ×4 (08:47→23:43)
[2019-08-21] MEDS: GLUCOPHAGE PO SCH ×2 (08:48→17:25)
[2019-08-21] MEDS: NORCO-5 PO PRN ×3 (08:51→23:43)
--- NOTE | 2019-08-21 13:03 | INFECTIOUS DISEASE PROGRESS NO ---
DATE: 08/21/2019 PRESENT ILLNESS: Ms. Peck is being treated for bilateral lower extremity cellulitis. She also has a Proteus urinary tract infection. MEDICATIONS: She is on day 1 of Kefzol 2 g IV every 8 hours. PHYSICAL EXAMINATION: Vital Signs: Temperature is 97.8 degrees, pulse rate 105, respiratory rate 19, blood pressure 147/80, O2 saturations 96% on room air. General: This is a chronically ill- appearing, morbidly obese, elderly female. She is lying in bed, currently in no acute distress. HEENT: Atraumatic, normocephalic. Oral mucous membranes are pink and moist. Conjunctivae are pink. Neck: Supple. Trachea is midline. Cardiovascular: Heart rate and rhythm are regular. Normal sinus rhythm on the monitor. Respiratory: Lung sounds are clear to auscultation bilaterally. No work of breathing is noted. Abdomen: Soft, obese and mildly tender to palpation. Bowel sounds are active. Integumentary: Skin is warm and dry. Bilateral lower extremities have erythema to the calf region with 1 to 2+ pitting edema. These areas are very tender to palpation. Neurologic: She is awake, alert, oriented, and able to move around in the bed independently with minimal movement of the lower extremities due to pain. LABORATORY AND X-RAY: None available today. ASSESSMENT AND PLAN: Ms. Peck is being treated for bilateral lower extremity cellulitis and a Proteus urinary tract infection. These are both covered with Ancef, which we will continue at this time. Her lower extremities do look a little better than yesterday. These plans have been discussed with and recommended by Dr. Bauer. COMORBIDITIES: For Ms. Peck include that she is morbidly obese and an elderly longterm patient with diabetes mellitus, rheumatoid arthritis and chronic diarrhea. Dictated by ANDRE Faith for Oleg Bauer MD cc: Oleg Bauer MD
[2019-08-21 13:35] LABS: AGAP 16; BUN 5 mg/dL (8-22); CALCIUM 8.9 mg/dL (8.8-10.2); CHLORIDE 97 mmol/L (98-107); COSMO 277; CREATININE 0.5 mg/dL (0.5-0.9); ESTIMATED GFR > 60; GLUCOSE 134 mg/dL (70-104); POTASSIUM 3.1 mmol/L (3.5-5.1); SODIUM 139 mmol/L (136-145); TCO2 26 mmol/L (25-35)
[2019-08-21 13:41] LABS: HEMATOCRIT 45.2 % (37.0-47.0); HEMOGLOBIN 14.5 g/dL (12.0-16.0); MCH 26.4 PG (27-31); MCHC 32.1 g/dL (33-37); MCV 82.2 FL (81-99); MPV 9.4 FL (7.4-10.4); RBC 5.5 XMIL (4.2-5.4); RDW 15.1 % (11.5-14.5); WBC 13.53 X1000 (4.8-10.8)
[2019-08-21] MEDS ORDERED: MAGNESIUM SULFATE 2 GM/S.W.I. 2 GM/50 ML IVPB IV ONE (13:55)
[2019-08-21] MEDS ORDERED: KLOR-CON PO ONE (13:56)
--- NOTE | 2019-08-21 14:04 | GASTROENTEROLOGY CONSULTATION ---
DATE: 08/21/2019 REASON FOR CONSULTATION: Diarrhea, Nausea and Vomiting HISTORY OF PRESENT ILLNESS: Ms. Peck 73-year-old female, morbidly obese, with past medical history of arthritis, diabetes, neuropathy and headaches was admitted on 08/16/19 at [facility] and before that she was at [facility]. Reason for being hospitalized is her diarrhea which she has 4 to 5 times a day with nausea and vomiting, denied having any blood in the stools or in her vomit. She has a history of taking aspirin. The patient also has chronic edema in the lower extremities with erythema bilaterally. She any has denied any shortness of breath, dizziness, fever or chills. She complained of tenderness in the left lower quadrant of her abdomen. She mentioned that she had at least 2 bowel movements this morning, and yesterday had 3 and described as liquid in consistency. PAST MEDICAL HISTORY: Arthritis, diabetes type 2, neuropathy, chronic lower extremity edema. PAST SURGICAL HISTORY: Hysterectomy, TMJ surgeries bilaterally, knee surgeries, shoulder surgeries, and spine surgery. FAMILY HISTORY: No significant GI malignancies. She was adopted and does not know anything about her parents. SOCIAL HISTORY: The patient is a , has 2 step siblings, retired, was a past smoker and alcoholic and denies any illegal drug use ALLERGIES: Penicillin and Codeine. HOME MEDICATIONS: The patient reports that she is not taking any medicines at home. OBJECTIVE: Vital Signs: Temperature 97.8 degrees, pulse is 105, respirations are 19, blood pressure is 147/80, oxygen saturation is 96% on room air. Weight 254.3 pounds, BMI 43.8 kg per meter square. General: Alert, oriented x3, and in no acute distress. She is a good historian, was answering questions appropriately. HEENT: Pale conjunctivae. No icterus. PERRL. Neck: Supple. Cardiovascular: Regular rate and rhythm. No murmurs, rubs, or gallops heard on auscultation. Lungs: Clear to auscultation bilaterally anterior and posterior garcia. Abdomen: Soft, obese, distended, tender, hypoactive bowel sounds heard in all 4 quadrants. Extremities: No cyanosis, no clubbing, cellulitis in the lower extremities. Neurologic: Alert, oriented x3. Nonfocal. Cranial nerves II to XII grossly intact. LABORATORY DATA: WBC 6.97, RBC 4.66, hemoglobin 12.1, hematocrit 38.4, platelet count is 296,000. Sodium 144, potassium 3.3, chloride 105, carbon dioxide 26, anion gap 13. BUN 4, creatinine is 0.4, glucose is 123, calcium 8.7, phosphorus 2.9, magnesium is 1.8. Urinalysis on 08/16 had shown trace of protein, small amount of blood, positive nitrates and large leukocytes. C-diff toxin and antigen was negative, occult blood was negative, ova and parasites & trichrome stain was none. Chest x-ray showed no acute disease or change from the prior. Abdominal x-ray showed right renal stone. IMPRESSION AND PLAN: Diarrhea Nausea & Vomiting Obesity Insulin dependent type 2 diabetes Arthritis Neuropathy Cellulitis in the lower extremities PLAN: We plan to do a colonoscopy on 08/24/2019. Patient is also seen by the Infectious Disease and is being treated with Kefzol IV every 8 hours. she is on Culturelle and Imodium PRN for her diarrhea, antiemetic Zofran PRN for nausea and vomiting. Her stool studies and stool cultures are negative, we will continue to monitor her CBC and BMP, follow the plan of care per Infectious Disease team and her PCP. Further plan of care will be based on the colonoscopy findings. This plan was discussed with Dr. Naqvi. Thank you for your consult. Please call us for any further questions or concerns. Dictated by ANDRE Thompson for Ellie Naqvi MD cc: Ellie Naqvi MD [facility]
--- NOTE | 2019-08-21 19:57 | PROGRESS NOTE ---
DATE: 08/21/2019 SUBJECTIVE: The patient is resting comfortably in bed. She continues to complain of pain in her legs and a burning sensation. Her legs are also erythematous. OBJECTIVE: Vital Signs: Temperature 98.8 degrees, blood pressure 131/76, heart rate 114, respirations 20, O2 saturation 96% on room air. General: This is a morbidly obese female lying in bed in no acute distress. Heart: S1, S2 normal. Tachycardic. Lungs: Equal air entry bilaterally. No wheezing. No rales. Abdomen: Positive bowel sounds. Soft, nontender, nondistended. Extremities: 3+ edema with erythema involving both legs. Neurologic: The patient is alert and oriented x3. LABORATORY DATA: White blood cell count 13, hemoglobin 14, hematocrit 45, platelets 356,000. Sodium 139, potassium 3.1, chloride 97, CO2 26, BUN 5, creatinine 0.5, glucose 134, magnesium 1.8. ASSESSMENT AND PLAN: 1. Bilateral lower extremity cellulitis. Continue with antibiotics as directed by Dr. Bauer. 2. Peripheral edema. Continue with diuretic therapy. 3. Chronic diarrhea. GI is following. 4. Morbid obesity. The patient has been counseled about weight loss and proper diet. 5. Vitamin D deficiency. Continue with vitamin D replacement. 6. Diabetes mellitus type 2. Continue on Humalog and metformin. 7. Deep vein thrombosis prophylaxis. Continue on Lovenox. 8. Disposition. Powdered Sugar Pulverizer Operator is working on placement for the patient. cc: Sonia Live MD
--- NOTE | 2019-08-21 20:30 | EKG Report ---
Test Performed on : 08/21/2019 8:24:43 PM Test Reason : tachycardia Blood Pressure : / mmHG Vent. Rate : 101 BPM Atrial Rate : 101 BPM P-R Int : 146 ms QRS Dur : 078 ms QT Int : 358 ms P-R-T Axes : 032 -25 060 degrees QTc Int : 464 ms Sinus tachycardia. Possible Inferior infarct (cited on or before 11-JUL-2019) Anterolateral infarct (cited on or before 10-JUL-2017) Abnormal ECG When compared with ECG of 15-AUG-2019 19:20, (Unconfirmed) Nonspecific T wave abnormality, worse in Lateral leads Confirmed by Patrizia JACKSON, Sixto Marie ([id number]) on 08/23/2019 9:42:11 PM
[2019-08-21] MEDS: LOVENOX SUBQ SCH (21:10)
[2019-08-22] MEDS: NEURONTIN PO SCH ×4 (00:14→21:23)
[2019-08-22] MEDS: HUMALOG SUBQ SCH ×4 (06:15→21:23)
[2019-08-22] MEDS: NORCO-5 PO PRN ×3 (06:40→23:06)
[2019-08-22] MEDS: LASIX IV SCH ×2 (06:41→17:34)
[2019-08-22 06:42] LABS: HEMOGLOBIN 13.8 g/dL (12.0-16.0); MCH 26.5 PG (27-31); MCHC 32.1 g/dL (33-37); MCV 82.5 FL (81-99); MPV 9.2 FL (7.4-10.4); RBC 5.21 XMIL (4.2-5.4); RDW 15.5 % (11.5-14.5); WBC 10.29 X1000 (4.8-10.8)
[2019-08-22] MEDS: ZOFRAN IV PRN ×2 (06:49→21:22)
[2019-08-22 06:54] LABS: MAGNESIUM 2.1 mg/dL (1.5-2.7); PHOSPHORUS 3.1 mg/dL (2.7-4.5)
[2019-08-22 07:00] LABS: AGAP 16; BUN 6 mg/dL (8-22); CHLORIDE 100 mmol/L (98-107); COSMO 282; CREATININE 0.6 mg/dL (0.5-0.9); ESTIMATED GFR > 60; GLUCOSE 153 mg/dL (70-104); POTASSIUM 3.8 mmol/L (3.5-5.1); SODIUM 141 mmol/L (136-145); TCO2 25 mmol/L (25-35)
--- NOTE | 2019-08-22 07:53 | Diag Imaging Result Doc PS360 ---
EXAM: CHEST-PORTABLE INDICATION: dyspnea TECHNIQUE: One view COMPARISON: 08/18/2019 FINDINGS: Inspiration is suboptimal similar to the previous study. The lungs remain grossly clear. No new consolidation is identified. Cardiac silhouette is stable. IMPRESSION: Stable chest. Electronically signed by Silverio Kaminski 08/22/2019 7:51 AM
[2019-08-22] MEDS: KEFZOL 2 GM/D5W 2 GM/50 ML IVPB IV SCH ×2 (09:00→16:25)
[2019-08-22] MEDS: GLUCOPHAGE PO SCH ×2 (09:00→16:26)
[2019-08-22] MEDS: CULTURELLE PO SCH ×2 (09:03→21:23)
[2019-08-22] MEDS: COREG PO SCH ×2 (09:03→21:24)
--- NOTE | 2019-08-22 14:46 | ECHO REPORT ---
ORDER DATE: 08/22/2019 INTERPRETATION: Fritz Dueñas MD. ECHOCARDIOGRAPHIC MEASUREMENTS: 1. Interventricular septum 1.1. 2. Left ventricular posterior wall 0.9. 3. Diastolic diameter 3.7. 4. Left atrium 3.5. 5. Aorta 3.5 cm. FINDINGS: 1. Technically suboptimal study. Very poor acoustic window. 2. Left ventricular function could not be assessed with Optison either. Normal left ventricular cavity size. Cannot estimate ejection fraction accurately. Would recommend MUGA scan to assess left ventricular systolic function. Pulmonic valve not well visualized. Tricuspid valve was normal. Aortic valve leaflets not well visualized. Tricuspid valve not well visualized. Mitral valve leaflets appear to be normal. However, Doppler studies across the mitral valve and Doppler studies across the tricuspid valve as well as the aortic valve cannot be commented on. Technically suboptimal, extremely poor acoustic window. cc: MD Sonia Newman MD
[2019-08-22] MEDS: MIRALAX PO SCH (16:23)
[2019-08-22] MEDS: TYLENOL PO PRN (17:34)
--- NOTE | 2019-08-22 18:43 | PROGRESS NOTE ---
DATE: 08/22/2019 SUBJECTIVE: The patient states that she is still having pain in her feet and she also complains of a headache. OBJECTIVE: Vital Signs: Temperature 97.9 degrees, blood pressure 123/73, heart rate 101, respirations 18, O2 saturation 96% on room air. Intake 530, output 1.7 L. General: This is a chronically ill-appearing elderly female, lying in bed in no acute distress. Heart: S1, S2 normal. Tachycardic. Lungs: Clear to auscultation bilaterally. Abdomen: Positive bowel sounds. Soft, obese, nontender, nondistended. Extremities: Edema 3+ with erythema involving both legs. Neurologic: The patient is alert and oriented x4. LABORATORY DATA: Reviewed. ASSESSMENT AND PLAN: 1. Bilateral lower extremity cellulitis. Continue with antibiotic therapy as directed by Dr. Bauer. 2. Peripheral edema. Continue with Lasix therapy. 3. Chronic diarrhea. Unchanged. Gastroenterology is following. 4. Morbid obesity. Aware. 5. Diabetes mellitus type 2. Continue on metformin and Humalog. 6. Vitamin D deficiency. Continue with vitamin D replacement. 7. Tachycardia. The patient is on Coreg. 8. Deep vein thrombosis prophylaxis. Continue on sequential compression devices. The patient's anticoagulation is on hold for colonoscopy. cc: Sonia Live MD
--- NOTE | 2019-08-22 19:49 | GASTROENTEROLOGY PROGRESS NOTE ---
DATE: 08/22/2019 SUBJECTIVE: The patient is currently lying in bed. She is feeling the same. She does complain of discomfort in her leg. She complains of intermittent diarrhea. She denies any blood in the stools. She does complain of some nausea. OBJECTIVE: Vital signs: Temperature 98.2 degrees, pulse rate 103, respiratory rate 18, blood pressure 132/77, saturating 95% on room air. Body weight of 251 pounds 9 ounces. BMI 43.2 kg/m2. Generally the patient is obese, lying in bed in no acute distress. HEENT: No pallor, no icterus. Pupils equal and reactive to light. Neck is supple. Abdomen is obese. Protuberant abdomen. No guarding or rebound. Nondistended. Extremities: No cyanosis or clubbing. Neurologic-plata, alert, awake, oriented x3. LABORATORY DATA: Hemoglobin and hematocrit are 13.8 and 43, white count of 10.29, platelet count of 331,000. Sodium 141, potassium 3.8, chloride 100, bicarbonate 25, anion gap 16, BUN of 6, creatinine 0.6, glucose of 153, calcium is 9, phosphorus 3.1, magnesium 2.1. CRP is 10.27. Vitamin D 10.9. C. difficile toxin A and B are negative. C. difficile antigen is negative. Stool for occult blood is negative. Ova and parasites negative. Stool for white cells: Rare. Stool culture negative. C. difficile toxin is negative. DIAGNOSTIC DATA: Chest x-ray shows stable chest, no consolidation. Abdominal x-ray done on 08/16 showed right renal stone. CT of the abdomen and pelvis on 07/24/2019 showed mild hepatic steatosis, 1.8 cm nonobstructing calyceal stone associated with the right kidney. No hydronephrosis. 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 There is a tiny hiatal hernia. IMPRESSION AND PLAN: 1. Bilateral lower extremity cellulitis. She is on antibiotics per Dr. Bauer. 2. Peripheral edema. She is on diuretic therapy per the primary team. 3. Chronic diarrhea. Negative stool studies. We will likely perform colonoscopy on Saturday. 4. Morbid obesity. The patient has to lose weight. 5. Vitamin D deficiency. She is on replacement. 6. Type 2 diabetes. She is on sliding scale insulin and metformin. 7. Deep venous thrombosis prophylaxis with Lovenox. 8. Continue on Culturelle 1 capsule p.o. b.i.d. for chronic diarrhea. We will discontinue her Imodium for now. We will start her on MiraLAX once daily. Her last bowel movement was 2 days ago. 9. We will start her on gastrointestinal prophylaxis with Pepcid. 10. Small hiatal hernia based on imaging, which may be contributing to her nausea and reflux disease. Pepcid should help. Hopefully if she can lose some weight that will help her hiatal hernia as well. The above plan was discussed with the patient and family at bedside, and all questions were answered. Please call us with any further questions. cc: MD Sonia Shah MD
[2019-08-22] MEDS: PEPCID PO SCH (21:22)
[2019-08-22] MEDS: MELATONIN PO SCH (21:23)
[2019-08-23] MEDS: KEFZOL 2 GM/D5W 2 GM/50 ML IVPB IV SCH ×3 (00:49→17:06)
[2019-08-23] MEDS: ZOFRAN IV PRN (01:55)
[2019-08-23] MEDS: NORCO-5 PO PRN ×3 (06:23→20:24)
[2019-08-23] MEDS: LASIX IV SCH ×2 (06:23→17:06)
[2019-08-23] MEDS: HUMALOG SUBQ SCH ×4 (06:24→20:25)
[2019-08-23 07:04] LABS: HEMATOCRIT 42.3 % (37.0-47.0); HEMOGLOBIN 13.4 g/dL (12.0-16.0); MCH 26.9 PG (27-31); MCHC 31.7 g/dL (33-37); MCV 84.9 FL (81-99); MPV 9.3 FL (7.4-10.4); RBC 4.98 XMIL (4.2-5.4); RDW 15.6 % (11.5-14.5); WBC 7.95 X1000 (4.8-10.8)
[2019-08-23 07:08] LABS: AGAP 14; BUN 10 mg/dL (8-22); CALCIUM 8.7 mg/dL (8.8-10.2); CHLORIDE 94 mmol/L (98-107); COSMO 277; CREATININE 0.6 mg/dL (0.5-0.9); ESTIMATED GFR > 60; GLUCOSE 141 mg/dL (70-104); POTASSIUM 3.4 mmol/L (3.5-5.1); SODIUM 138 mmol/L (136-145); TCO2 30 mmol/L (25-35)
[2019-08-23] MEDS ORDERED: KLOR-CON PO ONE (07:32)
[2019-08-23] MEDS: MIRALAX PO SCH (09:14)
[2019-08-23] MEDS: NEURONTIN PO SCH ×3 (09:18→20:22)
[2019-08-23] MEDS: GLUCOPHAGE PO SCH ×2 (09:18→17:06)
[2019-08-23] MEDS: CULTURELLE PO SCH ×2 (09:18→20:22)
[2019-08-23] MEDS: COREG PO SCH ×2 (09:18→20:23)
[2019-08-23] MEDS: PEPCID PO SCH ×2 (09:18→20:22)
[2019-08-23] MEDS ORDERED: GOLYTELY PO ONE (14:00)
--- NOTE | 2019-08-23 14:40 | PROGRESS NOTE ---
DATE: 08/23/2019 SUBJECTIVE: The patient is resting comfortably. She complains of pain in her legs. OBJECTIVE: Vital Signs: Temperature 97.5 degrees, blood pressure 133/72, heart rate 88, respirations 18, O2 saturation is 98% on room air. General: This is a morbidly obese female lying in bed, in no acute distress. Heart: S1, S2 normal. Regular rate and rhythm. Lungs: Equal air entry bilaterally. No wheezing. No rales. Abdomen: Positive bowel sounds. Soft, nontender, nondistended. Extremities: There is 3+ edema bilaterally with erythema. Neurologic: The patient is alert and oriented x4. Labs: White blood cell count 7.9, hemoglobin 13, hematocrit 42, platelets 285,000. Sodium 138, potassium 3.4, chloride 94, CO2 of 10, glucose 141. ASSESSMENT AND PLAN: 1. Bilateral lower extremity cellulitis. Continue with antibiotic therapy as directed by Dr. Bauer. 2. Peripheral edema. Continue with diuretic therapy. 3. Diabetes mellitus type 2. Continue on sliding scale insulin and metformin. 4. Morbid obesity with a body mass index of 43. Aware. 5. Vitamin D deficiency. Continue with vitamin D replacement. 6. Tachycardia. Improved. Continue on Coreg. 7. Chronic diarrhea. The patient is scheduled to undergo a colonoscopy tomorrow. 8. Neuropathy. Continue on Neurontin. 9. Deep vein thrombosis prophylaxis. The patient's Lovenox is on hold due to the colonoscopy planned for tomorrow. 10. Disposition. The patient will be discharged to [facility] once she is medically stable. cc: Sonia Live MD [facility]
--- NOTE | 2019-08-23 16:38 | GASTROENTEROLOGY PROGRESS NOTE ---
DATE: 08/23/2019 SUBJECTIVE: Patient resting in bed. She denies any new complaints. She is preparing for colonoscopy tomorrow. She denies any nausea or vomiting. She denies any blood in the stools. OBJECTIVE: Vital signs: Temperature 97.6 degrees, pulse of 91, respiratory rate of 16. Blood pressure of 123/76. Saturating 94% on room air. Body weight of 251 pounds 6 ounces. BMI 43.1 kg. General: Patient is morbidly obese. Lying in bed, in no acute distress. HEENT: No pallor. No icterus. Neck: Supple. Abdomen: Obese soft, nontender, nondistended. No guarding. Extremities: Bilateral mild lower extremity edema noted. Neuro: She is alert, awake, oriented x3. LABS: Hemoglobin and hematocrit are 13.4 and 42.3, white count of 7.95, platelet count of 25. Potassium 3.4, chloride 94, bicarb 30, anion gap of 14, BUN of 10, creatinine 0.6, glucose of 141, calcium 8.7. Stool studies are negative until yesterday. IMPRESSION: 1. Bilateral lower extremity cellulitis. She is on antibiotics per Dr. Bauer. 2. Chronic diarrhea. We will perform colonoscopy tomorrow. The risks, benefits, indications, and alternatives to the procedure were discussed with the patient and family and all questions answered. Her stool studies have been negative. 3. Peripheral edema. She is on diuretic therapy. 4. Type 2 diabetes, on sliding scale insulin. Metformin. 5. Morbid obesity with a BMI of 43. Patient counseled to lose weight. 6. Vitamin D deficiency. She is on vitamin D replacement. 7. Gastrointestinal prophylaxis with PPIs. 8. Deep venous thrombosis prophylaxis. She is on Lovenox which will be on hold for colonoscopy tomorrow. We will continue on Culturelle 1 capsule p.o. b.i.d. for chronic diarrhea. 9. History of small hiatal hernia on imaging. We will continue on Pepcid for now. 10. Mild hepatic steatosis on imaging. She will counseled to lose weight. 11. Kidney stones on imaging. This will be managed by primary team. Above plan discussed with the patient, family, and nurse and all questions answered. Please call us if any further questions. cc: MD Sonia Shah MD [facility]
[2019-08-23] MEDS: TYLENOL PO PRN (17:26)
[2019-08-23] MEDS: MELATONIN PO SCH (20:23)
[2019-08-24] MEDS: KEFZOL 2 GM/D5W 2 GM/50 ML IVPB IV SCH ×3 (00:14→10:37)
[2019-08-24] MEDS ORDERED: KEFZOL 1 GM/D5W 0 GM/0 ML IVPB ONE (00:16)
[2019-08-24] MEDS: HUMALOG SUBQ SCH ×4 (05:32→20:42)
[2019-08-24] MEDS ORDERED: DIPRIVAN 1% ONE (09:02)
[2019-08-24] MEDS: CULTURELLE PO SCH ×2 (10:37→20:41)
[2019-08-24] MEDS: MIRALAX PO SCH (10:37)
[2019-08-24] MEDS: COREG PO SCH ×2 (10:38→20:41)
[2019-08-24] MEDS: GLUCOPHAGE PO SCH ×2 (10:38→18:46)
[2019-08-24] MEDS: NEURONTIN PO SCH ×3 (10:38→20:41)
[2019-08-24] MEDS: PEPCID PO SCH ×2 (10:38→20:41)
[2019-08-24] MEDS: ZOFRAN IV PRN ×2 (10:39→18:44)
[2019-08-24] MEDS: NORCO-5 PO PRN ×2 (10:52→18:46)
[2019-08-24] MEDS ORDERED: BENADRYL PO ONE (11:33)
--- NOTE | 2019-08-24 11:36 | GASTROENTEROLOGY PROGRESS NOTE ---
DATE: 08/24/2019 SUBJECTIVE: Ms. Peck 73 year old female, resting in bed. Family at the bedside. She has denied any nausea or vomiting. She does have diarrhea because she was taking GoLYTELY and did not complete the bowel prep regimen. We were supposed to do colonoscopy today, but we had to cancel it because her bowel was not clean. OBJECTIVE: Vital Signs: Temperature is 98.2 degrees, pulse is 82, respirations are 18, blood pressure is 151/61, oxygen saturation is 95% on room air. Her weight is 251 pounds. BMI is 43.1. General: She is morbidly obese, lying in bed in no acute distress. HEENT: Pale conjunctivae. No icterus. PERRL. Neck: Supple. Abdomen: Obese, soft, nontender, nondistended. No guarding. Extremities: Bilateral edema in the lower extremities. Neurologic: She is alert, oriented x3. IMAGING AND LABORATORY DATA: WBC 7.95, RBCs 4.98, hemoglobin is 13.4, hematocrit is 42.3, platelet count is 285,000. Sodium is 138, potassium is 3.4, chloride is 94, carbon dioxide is 30, anion gap is 14, BUN is 10, creatinine 0.6, glucose is 141, calcium is 8.7. Chest x-ray on 08/22/2019 showed stable chest. Her stool studies for Clostridium difficile toxin and antigen were negative. Ova and parasites, none seen. IMPRESSION AND PLAN: 1. Bilateral lower extremity cellulitis. 2. Chronic diarrhea. 3. Peripheral edema. 4. Type 2 diabetes. 5. Morbid obesity. 6. Vitamin D deficiency. 7. Mild hepatic steatosis on imaging. 8. Kidney stones on imaging. 9. Hx. of small hiatal hernia PLAN: The plan was to do a colonoscopy today, but the patient had not completed the bowel prep. We will schedule for colonoscopy tomorrow. The patient is on clear liquid diet for now, and nothing by mouth past midnight. We have requested the patient to complete her GoLYTELY prep. We will continue her gastrointestinal prophylaxis, Pepcid twice a day, MiraLAX for bowel regimen and her Culturelle. The patient is getting Kefzol for her cellulitis. Discussed the risk of obesity and counselled her to lose weight and follow a healthy diet plan. Patient acknowledges understanding of the instructions. We will continue to follow the plan of care per primary care provider, and further plan of care will be based on the colonoscopy findings. This plan was discussed with Dr. Pederson. Please call us for any further questions or concerns. Dictated by ANDRE Thompson for Derek Pederson MD cc: Derek Pederson MD I have seen and examined the patient myself and I agree with the above plan of care. Discussed the above with the patient and all questions were answered. Please call us with any further questions or concerns. MEIR
[2019-08-24 11:43] LABS: HEMATOCRIT 43.2 % (37.0-47.0); HEMOGLOBIN 13.5 g/dL (12.0-16.0); MCH 26.3 PG (27-31); MCHC 31.3 g/dL (33-37); MPV 9.5 FL (7.4-10.4); RBC 5.14 XMIL (4.2-5.4); RDW 15.1 % (11.5-14.5); WBC 9.12 X1000 (4.8-10.8)
[2019-08-24 12:20] LABS: AGAP 15; ALBUMIN 3.6 g/dL (3.5-5.0); BUN 10 mg/dL (8-22); CALCIUM 9.6 mg/dL (8.8-10.2); CHLORIDE 93 mmol/L (98-107); COSMO 279; CREATININE 0.7 mg/dL (0.5-0.9); ESTIMATED GFR > 60; GLUCOSE 133 mg/dL (70-104); PHOSPHORUS 3.2 mg/dL (2.7-4.5); POTASSIUM 3.9 mmol/L (3.5-5.1); SODIUM 139 mmol/L (136-145); TCO2 31 mmol/L (25-35)
--- NOTE | 2019-08-24 13:54 | PROGRESS NOTE ---
DATE: 08/24/2019 SUBJECTIVE: The patient is resting comfortably in bed. No diarrhea today. She had a couple episodes yesterday. She will be scheduled for a colonoscopy tomorrow and hopefully she will take the whole bowel preparation today. OBJECTIVE: Vital Signs: Temperature 98.2 degrees, pulse 82, respiratory rate 18, blood pressure 151/61, oxygen saturation 95% on room air. HEENT: Head normocephalic. No trauma. PERRLA. Neck: Supple. No JVD. No masses. Central trachea. Chest: Clear to auscultation. Some decreased breath sounds at the bases. No wheezing. Abdomen: Soft. A little bit distended but positive bowel sounds. Protuberant. Extremities: There is 3+ lower extremity edema with erythema. Neurological Examination: This patient is alert. She is oriented x4. No focal deficits. Laboratory: WBC 9.1, hemoglobin 13.5, hematocrit 43.2, platelets 307,000. Sodium 139, potassium 3.9, chloride 93, bicarbonate 31, BUN 10, creatinine 0.7, glucose 133, calcium 9.6, magnesium 1.8, albumin 3.6. ASSESSMENT AND PLAN: 1. Bilateral lower extremity cellulitis. Continue with antibiotics as directed by Dr. Bauer. 2. Lower extremity edema. Continue with diuretics. 3. Chronic diarrhea. This patient has been scheduled for a colonoscopy tomorrow. We will monitor. 4. Type 2 diabetes. Continue sliding scale insulin and the same management. 5. Morbid obesity with a body mass index of 42.6. Aware. 6. Vitamin D deficiency. Continue with vitamin D replacement. 7. Tachycardia. Continue with Coreg. 8. Neuropathy. Continue with Neurontin. 9. Deep vein thrombosis prophylaxis. This patient has been on Lovenox which has been on hold due to colonoscopy tomorrow. 10. Disposition. This patient will be discharged to [facility] once she is medically stable. cc: Sin Briggs MD
--- NOTE | 2019-08-24 16:45 | INFECTIOUS DISEASE PROGRESS NO ---
DATE: 08/24/2019 PRESENT ILLNESS: Ms. Peck is being treated for bilateral lower extremity cellulitis and a Proteus urinary tract infection. MEDICATIONS: Today is day 4 of Kefzol 2 g IV every 8 hours which we will change today. PHYSICAL EXAMINATION: Vital Signs: Temperature is 97.9 degrees, pulse rate 73, respiratory rate 18, blood pressure 124/63. O2 saturation is 96% on room air. General: This is a chronically ill- appearing, elderly female. She is lying in bed, currently in mild distress due to lower extremity pain. HEENT: Atraumatic, normocephalic. Oral mucous membranes are pink and moist. Conjunctivae are pink. Neck: Supple. Trachea is midline. Cardiovascular: Heart rate and rhythm are regular. Normal sinus rhythm on the monitor. Respiratory: Lung sounds are clear to auscultation with no work of breathing noted. Abdomen: Soft, obese and nontender to palpation. Bowel sounds are active. Integumentary: Skin is warm, dry, and intact with bilateral lower extremity erythema noted to the lower calf regions with 1+ pretibial edema noted. Neurologic: She is awake, alert, oriented, and able to move around in the bed, with generalized weakness to the lower extremities. LABORATORY AND X-RAY: Today, her white count is 9.12, hemoglobin 13.5, platelet count 307,000. Creatinine 0.7, estimated GFR is greater than 60. No imaging reports today. However on Saturday, she did have a chest x-ray which showed lungs grossly clear. No new consolidation. ASSESSMENT AND PLAN: Ms. Peck is being treated for bilateral lower extremity cellulitis and a Proteus urinary tract infection. It appears that the erythema to her calves has not really improved with Ancef over the weekend. We will extend her coverage by using ceftaroline 600 mg IV every 12 hours to cover for methicillin-resistant Staphylococcus aureus and extend the gram-negative coverage. These plans have been discussed with and recommended by Dr. Bauer. COMORBIDITIES: For Ms. Peck include that she is morbidly obese, elderly and in a group home with diabetes mellitus, rheumatoid arthritis, and chronic diarrhea. Dictated by ANDRE Faith for Oleg Bauer MD cc: [facility] MD [facility]
[2019-08-24] MEDS ORDERED: GOLYTELY PO ONE (18:18)
[2019-08-24] MEDS: TEFLARO 600 MG in NS 250 ML IV SCH (18:45)
[2019-08-24] MEDS: MELATONIN PO SCH (20:41)
[2019-08-24] MEDS: LASIX IV SCH (20:41)
[2019-08-24] MEDS: TYLENOL PO PRN (22:43)
[2019-08-25] MEDS: NORCO-5 PO PRN ×3 (00:55→15:34)
[2019-08-25] MEDS: TEFLARO 600 MG in NS 250 ML IV SCH ×2 (04:37→18:43)
[2019-08-25] MEDS: HUMALOG SUBQ SCH ×4 (06:23→20:14)
[2019-08-25] MEDS ORDERED: DIPRIVAN 1% ONE (06:58)
[2019-08-25] MEDS ORDERED: ZOFRAN ONE (08:30)
--- NOTE | 2019-08-25 08:47 | ENDOSCOPY OPERATIVE NOTE ---
[facility] ENDOSCOPY OPERATIVE NOTE , PATIENT: Kathia Peck ADM DATE: 08/25/2019 MR #: [id number] : 1945 COLONOSCOPY PROCEDURE REPORT PROCEDURE DATE: 08/25/2019 SURGEON: Donnie Cruz MD STATUS: inpatient MORTUARY BEAUTICIAN: PREOPERATIVE DIAGNOSIS: The patient is a 73 yr old female here for a colonoscopy due to unexplained diarrhea. PROCEDURE PERFORMED: Colonoscopy with biopsy MEDICATIONS: Per Anesthesia PREP TYPE: GoLytely
[2019-08-25] MEDS: NEURONTIN PO SCH ×3 (09:54→20:11)
[2019-08-25] MEDS: COREG PO SCH ×2 (09:54→20:10)
[2019-08-25] MEDS: PEPCID PO SCH ×2 (09:54→20:11)
[2019-08-25] MEDS: GLUCOPHAGE PO SCH ×2 (09:54→17:05)
[2019-08-25] MEDS: LASIX IV SCH ×2 (09:55→20:14)
[2019-08-25] MEDS: CULTURELLE PO SCH ×2 (09:55→20:10)
[2019-08-25] MEDS: MIRALAX PO SCH (09:55)
--- NOTE | 2019-08-25 15:23 | PROGRESS NOTE ---
DATE: 08/25/2019 SUBJECTIVE: This patient had an endoscopy done today. At this moment she is resting comfortably in bed and she is sleeping. As per the which is at the bedside she was doing fine after the procedure. OBJECTIVE: Vital Signs: Temperature 97.8 degrees, pulse 66, respiratory rate 18, blood pressure 113/59, oxygen saturation 95% on room air. HEENT: Head normocephalic, no trauma. PERRLA. Neck: Supple, no JVD. No masses. Central trachea. Chest: Clear to auscultation. Some decreased breath sounds at the bases. No wheezing. Abdomen: Soft, a little bit distended, but positive bowel sounds. Protuberant. Extremities: 3+ lower extremity edema with erythema. Neurological: She is sleepy, but arousable. No changes. LABORATORY: Glucose 138. ASSESSMENT AND PLAN: 1. Bilateral lower extremity cellulitis. Continue with antibiotics as directed by Dr. Bauer. 2. Lower extremity edema, continue with diuretics. 3. Chronic diarrhea. This patient has been scheduled today for colonoscopy, they found a sessile pole polyp in the cecum and they took multiple biopsies in the colon to rule out microscopic colitis. 4. Type 2 diabetes continue with same management. 5. Morbid obesity with a body mass index of 42.8, aware. 6. Vitamin D deficiency continue with vitamin D replacement. 7. Tachycardia. Continue with Coreg. 8. Neuropathy. Continue with Neurontin. 9. Deep vein thrombosis prophylaxis. I will put this patient back on Lovenox which has been on hold due to the endoscopy today. Disposition: This patient can be discharged to [facility] once she is medically stable, I will discuss the case with Infectious Disease Department and we will decide what kind of antibiotics she will need, hopefully I will be able to discharge this patient in the morning if everything is okay. cc: Sin Briggs MD
--- NOTE | 2019-08-25 15:46 | INFECTIOUS DISEASE PROGRESS NO ---
DATE: 08/25/2019 PRESENT ILLNESS: Ms. Peck is being treated for bilateral lower extremity cellulitis and a Proteus urinary tract infection. MEDICATIONS: She is on day 1 of ceftaroline 600 mg IV every 12 hours. PHYSICAL EXAMINATION: Vital Signs: Temperature is 97.8 degrees, pulse rate 66, respiratory rate 18, blood pressure 113/59, O2 saturation is 95% on room air. General: This is a chronically ill- appearing, morbidly obese, elderly female. She is lying in bed, currently in no acute distress. HEENT: Atraumatic, normocephalic. Oral mucous membranes are pink and dry. Conjunctivae are pink. Neck: Supple. Trachea is midline. Cardiovascular: Heart rate and rhythm are regular. Normal sinus rhythm on the monitor. Respiratory: Lung sounds are clear to auscultation bilaterally. Diminished in the bases. No work of breathing is noted. Abdomen: Soft, obese and tender to palpation. Bowel sounds are active. Integumentary: Skin is warm and dry with bilateral lower extremity erythema noted to the lower calf area as well as a 1+ pretibial edema. Neurologic: She is drowsy and lethargic but arousable. Generalized weakness is noted more so to the lower extremities. LABORATORY AND X-RAY: None available today. ASSESSMENT AND PLAN: Ms. Peck is being treated for lower extremity cellulitis bilaterally and a Proteus urinary tract infection. She is receiving ceftaroline which we will continue. For now there is no change in the look of her lower extremities. We will ask that nursing keep the foot of the bed gatch elevated at all times. The patient is status post colonoscopy done today. These plans have been discussed with and recommended by Dr. Bauer. COMORBIDITIES: For Ms. Peck include that she is elderly and morbidly obese with diabetes mellitus, rheumatoid arthritis, and chronic diarrhea. Dictated by ANDRE Faith for Oleg Bauer MD cc: Oleg Bauer MD [facility]
[2019-08-25] MEDS: ZOFRAN IV PRN (18:55)
[2019-08-25] MEDS: TYLENOL PO PRN (18:55)
[2019-08-25] MEDS: MELATONIN PO SCH (20:11)
[2019-08-25] MEDS: LOVENOX SUBQ SCH (20:14)
[2019-08-26] MEDS: TEFLARO 600 MG in NS 250 ML IV SCH (04:36)
[2019-08-26] MEDS: HUMALOG SUBQ SCH ×3 (06:14→17:14)
[2019-08-26 07:31] LABS: BASO# 0.06 X1000 (0.0-0.2); BASO% 0.9 % (0.0-0.8); EOS# 0.21 X1000 (0.0-0.7); EOS% 3.1 % (0.0-10.0); HEMATOCRIT 40.3 % (37.0-47.0); HEMOGLOBIN 12.3 g/dL (12.0-16.0); LYMPH# 2.13 X1000 (1.2-3.4); LYMPH% 31.4 % (20.5-51.1); MCH 25.6 PG (27-31); MCHC 30.5 g/dL (33-37); MCV 83.8 FL (81-99); MONO# 0.43 X1000 (0.11-0.59); MONO% 6.3 % (1.7-9.3); MPV 9.6 FL (7.4-10.4); NEUT# 3.96 X1000 (1.4-6.5); NEUT% 58.3 % (42.2-75.2); PLT 315 X1000 (130-400); RBC 4.81 XMIL (4.2-5.4); RDW 14.9 % (11.5-14.5); WBC 6.79 X1000 (4.8-10.8)
[2019-08-26 07:48] LABS: AGAP 12; BUN 11 mg/dL (8-22); CHLORIDE 95 mmol/L (98-107); COSMO 281; CREATININE 0.7 mg/dL (0.5-0.9); ESTIMATED GFR > 60; GLUCOSE 146 mg/dL (70-104); POTASSIUM 3.4 mmol/L (3.5-5.1); SODIUM 140 mmol/L (136-145); TCO2 33 mmol/L (25-35)
[2019-08-26] MEDS: NEURONTIN PO SCH ×3 (08:40→20:42)
[2019-08-26] MEDS: GLUCOPHAGE PO SCH ×2 (08:40→17:15)
[2019-08-26] MEDS: NORCO-5 PO PRN ×2 (08:41→18:26)
[2019-08-26] MEDS: COREG PO SCH ×2 (08:41→20:42)
[2019-08-26] MEDS: LASIX IV SCH ×2 (08:41→20:42)
[2019-08-26] MEDS: PEPCID PO SCH ×2 (08:41→20:42)
[2019-08-26] MEDS: CULTURELLE PO SCH ×2 (08:41→20:41)
[2019-08-26] MEDS: MIRALAX PO SCH (09:52)
[2019-08-26] MEDS ORDERED: CALMOSEPTINE OINTMENT TOP PRN (10:35)
--- NOTE | 2019-08-26 12:05 | GASTROENTEROLOGY PROGRESS NOTE ---
DATE: 08/26/2019 SUBJECTIVE: Ms. Peck is a 73-year-old female. She was resting in bed. Denied any nausea or vomiting, but complained that she had 1 bowel movement today which was liquid in consistency. OBJECTIVE: Vital Signs: Temperature 98.5 degrees, pulse is 82, respirations 17, blood pressure 107/60, oxygen saturation is 98% on room air. Her weight is 249 pounds. BMI is 40.8 kg/m2. General: She is alert, oriented x3, in no acute distress. She is morbidly obese. HEENT: Pale conjunctivae. No icterus. PERRL. Neck: Supple. Abdomen: Obese, soft, generalized tenderness in the lower quadrant. No guarding. Extremities: Bilateral edema in the lower extremities. Neurologic: Alert, oriented x3. LABORATORY DATA: WBC 6.7, RBC 4.81, hemoglobin is 12.3, hematocrit is 40.3, platelet count is 315,000. Sodium 140, potassium 3.4, chloride 95, carbon dioxide 33, anion gap is 12. BUN is 11, creatinine is 0.7, glucose is 146, calcium is 9.2. We did a colonoscopy yesterday and her colon findings were 3 mm sessile polyp found at the cecum. Polypectomy was not attempted given the inadequate prep. Biopsies were done to rule out microscopic colitis. No obvious findings to explain the patient's diarrhea. ASSESSMENT AND PLAN: Chronic Diarrhea Bilateral lower extremity edema Cellulitis in the lower extremities UTI Type 2 diabetes Morbid obesity Vitamin D deficiency Mild hepatic steatosis on imaging Kidney stones on imaging Hx of Hiatal hernia PLAN: The patient is on a diabetic diet and is able to tolerate her diet. She has had 1 bowel movement today, which she described as liquid in consistency. We will continue her Pepcid and and her bowel regimen MiraLAX BID, her Culturelle, and antibiotic Omnicef and doxycycline per infections disease team. We have discussed risk of obesity and counseled the patient to lose weight and follow a healthy plan. We will continue to follow the plan of care per primary care team and infectious disease team. This plan was discussed with Dr. Cruz. Please call us with any further questions or concerns. Dictated by ANDRE Thompson for Donnie Cruz MD Physician Attestation I have seen and examined the patient. I have discussed and reviewed the the note by Viola POWELL and agree with findings and plan as documented. Patient continues to have periumbilical abdominal discomfort with PO intake and liquid stools. Labs show mild hypokalemia. Random colon biopsies are negative for microscopic colitis. She is now on Omnicef and doxycycline, which both are notorious for causing antibiotic induced diarrhea and abdominal pain, respectively. Will start Levsin TID prn for abdominal pain. ID following; consider alternative antibiotic for cellulitis if she complains of worsening abdominal pain or diarrhea.. MTDD
[2019-08-26] MEDS ORDERED: KLOR-CON PO ONE (12:09)
--- NOTE | 2019-08-26 14:20 | PROGRESS NOTE ---
DATE: 08/26/2019 SUBJECTIVE: No big changes compared with yesterday. No acute events overnight. OBJECTIVE: Vital Signs: Temperature 98.5 degrees, pulse 82, respiratory rate 17, blood pressure 117/60, oxygen saturation 98 on room air. HEENT: Head normocephalic. No trauma. PERRLA. Neck: Supple. No JVD. No masses. Central trachea. Chest: Clear to auscultation. Some decreased breath sounds at the bases. No wheezing. Abdomen: Soft, a little bit distended, but positive bowel sounds. Protuberant. Extremities: There is 3+ lower extremity edema with erythema. Neurological: She is awake, alert, and oriented x3. She does have left lower extremity weakness, which is chronic. LABORATORY DATA: WBC 6.7, hemoglobin 12.3, hematocrit 40.3, platelets 215,000. Sodium 140, potassium 3.4, chloride 95, bicarbonate 33, BUN 11, creatinine 0.7, glucose 146, calcium 9. ASSESSMENT AND PLAN: 1. Bilateral lower extremity cellulitis. Continue with antibiotics as directed by Dr. Bauer. 2. Lower extremity edema. Continue with diuretics. She is getting intravenous Lasix twice a day. We do have a negative balance of almost 5.8 liters. 3. Chronic diarrhea. This patient had a colonoscopy done yesterday that showed a sessile polyp in the cecum, and they took also multiple biopsies in the colon to rule out microscopic colitis. 4. Type 2 diabetes. Continue with the same management. 5. Morbid obesity with a body mass index of 42.8. Aware. 6. Vitamin D deficiency. Continue vitamin D replacement. 7. Tachycardia. Continue with Coreg. 8. Neuropathy. Continue with Neurontin. 9. Deep vein thrombosis prophylaxis. Continue with Lovenox. 10. Disposition. This patient can be discharged to [facility] once she is stable. Also, we are waiting for the [facility] to evaluate this patient. cc: Sin Briggs MD
--- NOTE | 2019-08-26 14:37 | INFECTIOUS DISEASE PROGRESS NO ---
DATE: 08/26/2019 PRESENT ILLNESS: Ms. Peck has bilateral lower extremity cellulitis and a Proteus urinary tract infection. MEDICATIONS: She is receiving ceftaroline 600 mg IV every 12 hours. PHYSICAL EXAMINATION: Vital Signs: Temperature is 98.5 degrees, pulse rate 82, respiratory rate 17, blood pressure 117/60 O2 saturation is 98% on room air. General: This is a morbidly obese, chronically ill-appearing, elderly female. She is lying in bed, currently in no acute distress. HEENT: Atraumatic, normocephalic. Oral mucous membranes are pink and dry. Conjunctivae are pink. Neck: Supple. Trachea is midline. Respiratory: Lung sounds are bilaterally clear to auscultation. Diminished in the bases. No work of breathing is noted. Cardiovascular: Heart rate and rhythm are regular. Normal sinus rhythm on the monitor. Abdomen: Soft, obese. Tender to palpation. Bowel sounds are active. Integumentary: Skin is warm and dry. Bilateral lower extremities have 1+ pretibial edema with erythema to the calf areas. Neurologic: She is awake, alert, and oriented with generalized weakness, particularly to the lower extremities. LABORATORY AND X-RAY: Today her white count is 6.79, hemoglobin 12.3, platelet count 315,000. Creatinine is 0.7. Estimated GFR is greater than 60. No imaging reports today. ASSESSMENT AND PLAN: Ms. Peck is being treated for bilateral lower extremity cellulitis and a Proteus urinary tract infection. At this point, the plan is to send her to a long-term care facility, so we will stop the ceftaroline and put her on Omnicef 300 mg by mouth every 12 hours and doxycycline 100 mg by mouth every 12 hours for the next 5 days. She will also need to keep her lower extremities elevated at all times. We will sign off the case, but be available on a p.r.n. basis. These plans have been discussed with and recommended by Dr. Bauer. COMORBIDITIES: For Ms. Peck include that she is elderly and morbidly obese with diabetes mellitus, rheumatoid arthritis, and chronic diarrhea. Dictated by ANDRE Faith for Oleg Bauer MD cc: MD MEIR Curry
[2019-08-26] MEDS: LOVENOX SUBQ SCH (20:42)
[2019-08-26] MEDS: DOXYCYCLINE PO SCH (20:42)
[2019-08-26] MEDS: MELATONIN PO SCH (20:42)
[2019-08-26] MEDS: OMNICEF PO SCH (20:44)
[2019-08-27] MEDS ORDERED: LEVSIN PO PRN (00:04)
[2019-08-27] MEDS: HUMALOG SUBQ SCH ×5 (01:14→20:32)
[2019-08-27] MEDS: GLUCOPHAGE PO SCH ×2 (08:34→18:02)
[2019-08-27] MEDS: OMNICEF PO SCH ×2 (08:35→20:31)
[2019-08-27] MEDS: CULTURELLE PO SCH ×2 (08:36→20:31)
[2019-08-27] MEDS: PEPCID PO SCH ×2 (08:36→20:32)
[2019-08-27] MEDS: LASIX IV SCH ×2 (08:36→20:32)
[2019-08-27] MEDS: NEURONTIN PO SCH ×3 (08:36→18:03)
[2019-08-27] MEDS: COREG PO SCH ×2 (08:36→20:32)
[2019-08-27] MEDS: DOXYCYCLINE PO SCH ×2 (08:36→20:32)
[2019-08-27] MEDS: NORCO-5 PO PRN ×2 (08:53→18:02)
[2019-08-27] MEDS: ZOFRAN IV PRN ×2 (10:23→18:03)
--- NOTE | 2019-08-27 11:51 | GASTROENTEROLOGY PROGRESS NOTE ---
DATE: 08/27/2019 SUBJECTIVE: Ms. Peck is a 73-year-old female resting in bed. She complained of feeling nauseated, but denied any vomiting. She did have 1 bowel movement early this morning around 3:00 am and then 1 around 7:00 am described the consistency as soft. She complains of having abdominal cramps on and off. OBJECTIVE: Vital Signs: Temperature 97.6 degrees, pulse is 72, respirations 16, blood pressure is 146/106, oxygen saturation is 92% on 2 L nasal cannula. Her weight is 247.9 pounds, BMI is 42.7 kg/m2. General: She is alert, oriented x3, and in no acute distress. She is morbidly obese. HEENT: Pale conjunctivae. No icterus. PERRL. Neck: Supple. Abdomen: Obese, soft. Generalized tenderness in the lower quadrant, and occasional abdominal cramps. No guarding. Extremities: Bilateral edema in the lower extremities. Neurologic: Alert, oriented x3. IMAGING AND LABORATORY DATA: WBC is 6.79, RBC is 4.81, hemoglobin is 12.3, hematocrit is 40.3, platelet count is 315,000. Sodium 140, potassium 3.5, chloride 95, carbon dioxide 33, anion gap is 12, BUN is 11, creatinine is 0.7, glucose 146, calcium is 9.0. Chest x-ray on 08/22/2019 showed stable chest. A stool cultures showed no Salmonella, Shigella, Campylobacter, or Escherichia coli. Her stool cultures on 08/20/2019 showed negative Clostridium difficile toxin and negative Clostridium difficile antigen. We did a colonoscopy on 08/25/2019, and it showed that she had a 3 mm sessile polyp found in the cecum. Polypectomy was not attempted given the inadequate prep. Biopsies were done to rule out microscopic colitis. No obvious finding to explain the patient's diarrhea. ASSESSMENT AND PLAN: 1. Chronic diarrhea. Intermittent constipation. Likely IBS. 2. Bilateral lower extremity edema. 3. Cellulitis in the lower extremities. 4. Urinary tract infection. 5. Type 2 diabetes. 6. Morbid obesity. 7. Vitamin D deficiency. 8. Mild hepatic steatosis on imaging. 9. Kidney stones on imaging. 10. History of hiatal hernia. PLAN: The patient is on a diabetic diet. She is able to tolerate a diet well. We will continue Pepcid, Culturelle, and bowel regimen, MiraLAX 17g BID and hold for more than 3 BMs in 24 hours. She is on antibiotics, Omnicef and doxycycline per Infectious Disease team. We have started her on Levsin 0.125 mg TID PRN for abdominal cramps. The patient is morbidly obese, and we have discussed the risk of obesity, and counseled the patient to lose weight and follow a healthy diet plan. We will continue to follow the plan of care per primary care team and the Infectious Disease team. This plan was discussed with Dr. Pederson. Please call us for any further questions or concerns. Dictated by ANDRE Thompson for Derek Pederson MD cc: Derek Pederson MD I have seen and examined the patient myself and I agree with the above plan of care. The above plan was discussed with the patient and all questions were answered. Please call us with any further questions. MTDD
--- NOTE | 2019-08-27 12:30 | PROGRESS NOTE ---
DATE: 08/27/2019 SUBJECTIVE: No big changes compared with yesterday, but today she is complaining of more burning sensation at the level of the feet. I will increase the dose of gabapentin. OBJECTIVE: Vital Signs: Temperature 97.8 degrees, pulse 74, respiratory rate 20, blood pressure 116/68, oxygen saturation 93 on room air. HEENT: Head normocephalic. No trauma. PERRLA. Neck: Supple. No JVD. No masses. Central trachea. Chest: Clear to auscultation. Some decreased breath sounds at the bases. No wheezing. Abdomen: Soft, a little bit distended, but positive bowel sounds. Protuberant. Extremities: 3+ lower extremity edema with erythema painful to palpation and mobilization. Neurological: The patient is awake, alert, and oriented x3. She does have left lower extremity weakness which is chronic. LABORATORY DATA: Glucose 134. ASSESSMENT AND PLAN: 1. Bilateral lower extremity cellulitis. Continue with antibiotics as directed by Dr. Bauer. 2. Lower extremity edema, continue with diuretics. She is getting intravenous Lasix twice a day and we do have a negative balance of 6.2 L. 3. Chronic diarrhea status post colonoscopy. A sessile polyp in the cecum was seen, it has not been removed, but they took multiple biopsies in the colon to rule out microscopic colitis. 4. Peripheral neuropathy continue with Neurontin, but I will increase the dose. 5. Type 2 diabetes continue with same management. 6. Morbid obesity with a body mass index of 42.8. Aware. 7. Vitamin D deficiency. Continue with vitamin D replacement. 8. Tachycardia. Continue with Coreg. 9. Deep vein thrombosis prophylaxis with Lovenox. 10. Disposition. This patient can be discharged to [facility] once she is stable and we are waiting for the [facility] to evaluate this patient as well. cc: Sin Briggs MD
[2019-08-27] MEDS: VITAMIN D PO SCH (18:02)
[2019-08-27] MEDS: MELATONIN PO SCH (20:31)
[2019-08-27] MEDS: TYLENOL PO PRN (20:31)
[2019-08-27] MEDS: LOVENOX SUBQ SCH (20:32)
[2019-08-28] MEDS: NORCO-5 PO PRN ×4 (00:29→22:00)
[2019-08-28] MEDS: HUMALOG SUBQ SCH ×4 (06:39→20:05)
[2019-08-28] MEDS: GLUCOPHAGE PO SCH ×2 (08:42→16:58)
[2019-08-28] MEDS: PEPCID PO SCH ×2 (08:42→20:13)
[2019-08-28] MEDS: DOXYCYCLINE PO SCH ×2 (08:42→20:13)
[2019-08-28] MEDS: OMNICEF PO SCH ×2 (08:42→20:13)
[2019-08-28] MEDS: CULTURELLE PO SCH ×2 (08:42→20:13)
[2019-08-28] MEDS: COREG PO SCH ×2 (08:42→20:13)
[2019-08-28] MEDS: NEURONTIN PO SCH ×3 (08:43→16:58)
[2019-08-28] MEDS: LASIX IV SCH (08:44)
--- NOTE | 2019-08-28 09:45 | Extremity Venous Study ---
PROCEDURE NAME: Venous U/S Bilateral Legs - 08/23/2019 PROCEDURE: Bilateral lower extremity venous ultrasound. PERSONAL LINES ACCOUNT MANAGER: Nata Scott RVT. REQUESTING PHYSICIAN: Sonia Live MD. INDICATIONS: Swelling, morbid obesity. Difficult scan given the patient's obesity. FINDINGS: The bilateral lower extremity veins were visualized along their course. The left popliteal location, there was some thickening of the anterior wall popliteal consistent with chronic DVT but no evidence of occlusive disease. 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 cc: MD Sonia Saleh MD
--- NOTE | 2019-08-28 11:24 | PROGRESS NOTE ---
DATE: 08/28/2019 SUBJECTIVE: The patient is complaining of epigastric pain. Gastroenterology Department evaluated this patient and they have decided to go ahead and do an EGD on Saturday. She is still complaining also of lower extremity burning sensation. I increased the dose of gabapentin already yesterday, let us see how she does. She is basically bed-bound. OBJECTIVE: Vital Signs: Temperature 98.3 degrees, pulse 72, respiratory rate 20, blood pressure 124/62, oxygen saturation 95% on room air. HEENT: Head normocephalic. No trauma. PERRLA. Neck: Supple. No JVD. No masses. Central trachea. Chest: Clear to auscultation, some decreased breath sounds at the bases. Abdomen: Soft, a little bit distended, but positive bowel sounds. No signs of peritoneal irritation. Extremities: 3+ lower extremity edema with erythema which is painful to palpation and mobilization. Neurological: The patient is awake. She is alert. She is oriented x3. She does have left lower extremity weakness which is chronic. LABORATORY: Glucose 134. ASSESSMENT AND PLAN: 1. Bilateral lower extremity cellulitis. Continue with antibiotics as directed by Dr. Bauer. 2. Lower extremity edema. Continue with diuretics but I will decrease the dose of Lasix from twice a day to once a day and I will recheck a BMP in the morning. 3. Chronic diarrhea status post colonoscopy. A sessile polyp in the cecum was seen. It was not removed, but they took multiple biopsies in the colon to rule out microscopic colitis. 4. Peripheral neuropathy. I increased the dose of Neurontin yesterday. Will continue with the same management for now. 5. Type 2 diabetes, continue with the same management. Seems to be stable. 6. Morbid obesity with a body mass index of 43, aware. 7. Vitamin D deficiency. Continue with vitamin D replacement. 8. Tachycardia. Continue with Coreg. 9. Deep vein thrombosis prophylaxis with Lovenox. 10. Epigastric pain. Gastroenterology Department has evaluated this patient. They will go ahead and do an upper endoscopy next Saturday. DISPOSITION: This patient can be discharged to [facility] once she is stable and we are working on setting everything up for her with the social service technician and continuous pillowcase cutter. She will have an upper endoscopy done this coming Saturday. We will wait for it. cc: Sin Briggs MD
--- NOTE | 2019-08-28 13:27 | GASTROENTEROLOGY PROGRESS NOTE ---
DATE: 08/28/2019 SUBJECTIVE: Ms. Peck is a 73-year-old female, resting in bed, complaining of feeling nauseated. Denies any vomiting, had 3 bowel movements last night. Consistency soft and brown. Denied any blood in the stools. OBJECTIVE: Vital Signs: Temperature 98.3 degrees, pulse is 72, respirations 20, blood pressure 124/62, oxygen saturation is 95% on room air. Weight is 250 pounds, BMI is 43 kg/m2. General: She is alert, oriented x3, and in no acute distress. The patient is morbidly obese, HEENT: Pale conjunctivae. No icterus. PERRL. Neck: Supple. Abdomen: Obese, soft, distended, tender in left quadrants and occasional abdominal cramps. No guarding. Extremities: Bilateral edema in the lower extremities. Neurologic: Alert and oriented x3. LABORATORY DATA: WBCs 6.79, RBC 4.81, hemoglobin is 12.3, hematocrit is 40.3, platelet count is 315,000. Chemistry: Sodium 140, potassium 3.4, chloride 95, carbon dioxide 33, anion gap 12, BUN 11, creatinine 0.7. ASSESSMENT: 1. Chronic diarrhea, intermittent constipation. Likely IBS 2. Bilateral lower extremity edema, cellulitis. 3. Urinary tract infection. 4. Type 2 diabetes. 5. Morbid obesity. 6. Vitamin D deficiency. 7. Mild hepatic steatosis on imaging. 8. Kidney stones on imaging. 9. History of hiatal hernia. PLAN: We plan to do an EGD on Saturday to find out the cause of her nausea. She has been able to tolerate a diet fairly well and has denied any vomiting. We will continue her Pepcid and Culturelle. She is on antibiotics Omnicef and doxycycline per Infectious Disease Team. She is also receiving Levsin 0.125mg 3 times a day PRN for abdominal cramps. The patient is morbidly obese. Discussed the risk of obesity and counseled the patient on losing weight and following a healthy diet. We will continue to follow the plan of care per Primary Care Team and the Infectious Disease Team. Further plan of care will be based on the EGD findings. This plan was discussed with Dr. Cruz. Please call us for any further questions or concerns. Dictated by ANDRE Thompson for Donnie Cruz MD Physician Attestation I have seen and examined the patient. I have discussed and reviewed the the note by Viola POWELL and agree with findings and plan as documented. Patient continues to have nausea and periumbilical abdominal discomfort with PO intake. Her diarrhea has improved. Random colonic biopsies were negative for microscopic colitis. Recommend continued treatment with PPI, levsin, antiemetics and diagnostic EGD on Saturday. Of note, she is on antibiotics for cellulitis and UTI. Will follow with you. [facility]
[2019-08-28] MEDS: LOVENOX SUBQ SCH (20:13)
[2019-08-28] MEDS: MELATONIN PO SCH (20:13)
[2019-08-28] MEDS: ZOFRAN IV PRN (22:00)
[2019-08-28] MEDS: TYLENOL PO PRN (23:46)
[2019-08-29] MEDS: HUMALOG SUBQ SCH ×4 (06:18→20:54)
[2019-08-29 08:19] LABS: AGAP 17; BUN 15 mg/dL (8-22); CALCIUM 9.7 mg/dL (8.8-10.2); CHLORIDE 94 mmol/L (98-107); COSMO 282; CREATININE 0.8 mg/dL (0.5-0.9); ESTIMATED GFR > 60; GLUCOSE 133 mg/dL (70-104); POTASSIUM 3.9 mmol/L (3.5-5.1); SODIUM 140 mmol/L (136-145); TCO2 29 mmol/L (25-35)
[2019-08-29] MEDS: DOXYCYCLINE PO SCH ×2 (08:33→20:56)
[2019-08-29] MEDS: CULTURELLE PO SCH ×2 (08:34→20:56)
[2019-08-29] MEDS: GLUCOPHAGE PO SCH ×2 (08:34→16:10)
[2019-08-29] MEDS: OMNICEF PO SCH ×2 (08:34→20:55)
[2019-08-29] MEDS: NEURONTIN PO SCH ×3 (08:34→20:55)
[2019-08-29] MEDS: COREG PO SCH ×2 (08:34→20:55)
[2019-08-29] MEDS: PEPCID PO SCH ×2 (08:34→20:55)
[2019-08-29] MEDS ORDERED: LASIX IV SCH (09:00)
[2019-08-29] MEDS: NORCO-5 PO PRN ×3 (10:19→21:10)
--- NOTE | 2019-08-29 15:17 | PROGRESS NOTE ---
DATE: 08/29/2019 SUBJECTIVE: The patient is still complaining of epigastric pain and diarrhea, also complaining of lower extremity pain, no changes compared with yesterday. OBJECTIVE: Vital Signs: Temperature 97.6 degrees, pulse 79, respiratory rate 16, blood pressure 111/56, oxygen saturation 95 on room air. HEENT: Head normocephalic. No trauma. PERRLA. Neck: Supple. No JVD. No masses. Central trachea. Chest: Clear to auscultation, some decreased breath sounds at the bases. Abdomen: Soft, a little bit distended but positive bowel sounds. No signs of peritoneal irritation. Extremity: 3+ lower extremity edema with erythema, painful to palpation and also is warm. Neurological: The patient is awake, she is alert, she is oriented x3. She does have left lower extremity weakness which is chronic. LABORATORY: Sodium 140, potassium 3.9, chloride 94, bicarbonate 29, BUN 15, creatinine 0.8, glucose 133, calcium 9.7. ASSESSMENT AND PLAN: 1. Bilateral lower extremity cellulitis. Continue with antibiotics per Infectious Disease Department. 2. Lower extremity edema. Continue with Lasix. 3. Chronic diarrhea status post colonoscopy. A sessile polyp in the cecum was seen, it was not removed but they took multiple biopsies in the colon to rule out microscopic colitis. 4. Peripheral neuropathy. I already increased the dose of the Neurontin. Will continue to monitor. 5. Type 2 diabetes. Continue with same management. She seems to be stable. 6. Morbid obesity with a body mass index of 42.3. Aware. 7. Vitamin D deficiency. Continue to replace. 8. Tachycardia. Continue with Coreg. 9. Deep vein thrombosis prophylaxis with Lovenox. 10. Epigastric pain, Gastroenterology Department evaluated this patient. They have requested to do an upper endoscopy this Saturday. cc: Sin Briggs MD
[2019-08-29] MEDS: LASIX IV SCH (20:53)
[2019-08-29] MEDS: LOVENOX SUBQ SCH (20:54)
[2019-08-29] MEDS: MELATONIN PO SCH (20:55)
[2019-08-30] MEDS: HUMALOG SUBQ SCH ×4 (06:10→20:31)
[2019-08-30] MEDS: NORCO-5 PO PRN ×3 (06:53→20:24)
[2019-08-30] MEDS: OMNICEF PO SCH ×2 (08:38→20:25)
[2019-08-30] MEDS: PEPCID PO SCH ×2 (08:38→20:24)
[2019-08-30] MEDS: GLUCOPHAGE PO SCH ×2 (08:38→17:30)
[2019-08-30] MEDS: LASIX IV SCH ×2 (08:39→20:25)
[2019-08-30] MEDS: CULTURELLE PO SCH ×2 (08:39→20:24)
[2019-08-30] MEDS: NEURONTIN PO SCH ×3 (08:39→20:24)
[2019-08-30] MEDS: COREG PO SCH ×2 (08:39→20:24)
[2019-08-30] MEDS: DOXYCYCLINE PO SCH ×2 (09:00→20:25)
--- NOTE | 2019-08-30 11:34 | PROGRESS NOTE ---
DATE: 08/30/2019 SUBJECTIVE: No acute events overnight. She is still complaining of epigastric pain, diarrhea, and lower extremity pain. OBJECTIVE: Vital Signs: Temperature 98.1 degrees, pulse 84, respiratory rate 20, blood pressure 114/58, oxygen saturation 94% on room air. HEENT: Head normocephalic, no trauma, PERRLA. Neck: Supple. No JVD. No masses. Central trachea. Chest: Clear to auscultation. Decreased breath sounds at the bases. Abdomen: Soft, a little bit distended, but positive bowel sounds. No signs of peritoneal irritation. Extremity: 3+ lower extremity edema with erythema and pain. Neurological: The patient is sleepy but arousable. She is oriented. She does have left lower extremity weakness which is chronic. LABORATORY: No lab work done today. ASSESSMENT AND PLAN: 1. Bilateral lower extremity cellulitis. Continue with antibiotics per Infectious Disease Department. 2. Lower extremity edema, continue with Lasix. 3. Chronic diarrhea, status post colonoscopy, a sessile polyp in the cecum was seen, it was not removed, but they took multiple biopsies in the colon to rule out microscopic colitis. 4. Peripheral neuropathy. I already increased the dose of Neurontin from 600 t.i.d. to 900 t.i.d. 5. Type 2 diabetes, seems to be stable. 6. Morbid obesity with a body mass index of 43.4. 7. Vitamin D deficiency. Continue to replace. 8. Tachycardia. Continue with Coreg. 9. Deep vein thrombosis prophylaxis with Lovenox. 10. Epigastric pain. Gastroenterology Department is planning to do an upper endoscopy tomorrow. cc: Sin Briggs MD
[2019-08-30] MEDS: MELATONIN PO SCH (20:24)
[2019-08-30] MEDS: LOVENOX SUBQ SCH (20:25)
[2019-08-31] MEDS: HUMALOG SUBQ SCH ×4 (06:05→20:13)
[2019-08-31 07:35] LABS: BASO% 1.2 % (0.0-0.8); EOS# 0.25 X1000 (0.0-0.7); EOS% 2.9 % (0.0-10.0); HEMATOCRIT 44.9 % (37.0-47.0); HEMOGLOBIN 14.1 g/dL (12.0-16.0); IMM GRAN# 0.03 X1000 (0.0-0.04); IMM GRAN% 0.4 % (0.0-0.5); LYMPH# 3.05 X1000 (1.2-3.4); LYMPH% 35.8 % (20.5-51.1); MCHC 31.4 g/dL (33-37); MCV 82.7 FL (81-99); MONO% 8.2 % (1.7-9.3); MPV 9.7 FL (7.4-10.4); NEUT# 4.39 X1000 (1.4-6.5); NEUT% 51.5 % (42.2-75.2); PLT 339 X1000 (130-400); RBC 5.43 XMIL (4.2-5.4); RDW 14.6 % (11.5-14.5); WBC 8.52 X1000 (4.8-10.8)
[2019-08-31 07:50] LABS: AGAP 17; BUN 15 mg/dL (8-22); CALCIUM 9.6 mg/dL (8.8-10.2); CHLORIDE 91 mmol/L (98-107); COSMO 277; CREATININE 0.8 mg/dL (0.5-0.9); ESTIMATED GFR > 60; GLUCOSE 146 mg/dL (70-104); POTASSIUM 3.3 mmol/L (3.5-5.1); SODIUM 137 mmol/L (136-145); TCO2 29 mmol/L (25-35)
[2019-08-31] MEDS ORDERED: DIPRIVAN 1% ONE (08:57)
[2019-08-31] MEDS ORDERED: ZOFRAN ONE (08:58)
[2019-08-31] MEDS ORDERED: XYLOCAINE-MPF 2% ONE (08:58)
--- NOTE | 2019-08-31 09:20 | ENDOSCOPY OPERATIVE NOTE ---
[facility] ENDOSCOPY OPERATIVE NOTE , PATIENT: Kathia Peck ADMISSION DATE: MR#: [id number] : 1945 EGD PROCEDURE REPORT PROCEDURE DATE: 08/31/2019 SURGEON: Derek Pederson MD STATUS: inpatient CARPET BINDER: PREOPERATIVE DIAGNOSIS: The patient is a 73 yr old female here for an EGD due to Abdominal pain, [place]. PROCEDURE PERFORMED: EGD w/ biopsy MEDICATIONS: Per Anesthesia TOPICAL ANESTHETIC: none CONSENT: The patient understands the risks and benefits of the procedure and understands that these r isks include, but are not limited to: sedation, allergic reaction, infection, perforation and/or bleeding. Alternative means of evaluation and treatment include, among others: physical exam, x-rays, and/or surgical intervention. The patient elects to proceed with this endoscopic procedure. HISORY AND PHYSICAL: 08/31/2019 DESCRIPTION OF PROCEDURE: During intra-op preparation period all mechanical and medical equipment was checked for proper function. Hand hygiene and appropriate measures for infection prevention was taken. After the risks, benefits and alternatives of the procedure were thoroughly explained, Informed consent was verified, confirmed and timeout was successfully executed by the treatment team. The patient was anesthetized with topical anesthesia and the KM31-x42 ([id number]) endoscope was introduced through the mouth and advanced to the second portion of the duoden um. Retroflexion was performed in the stomach and revealed a hiatal hernia and Retroflexion was performed in the stoma ch and revealed . The gastroscope was then slowly withdrawn and removed. ESOPHAGUS: Z line noted at 40 cms; 3 cms sliding hiatal hernia was noted. Small erosions like [place] on lesions were noted in the Hiatal Sac. STOMACH: Mild erosive gastritis noted in the body and antrum; Biopsied. DUODENUM: The duodenal mucosa showed no abnormalities in the duodenal bulb, 1st part duodenum, and 2n d part duodenum. SPECIMENS REMOVED: Specimen Removed ADVERSE EVENTS: There were no complications. POSTOPERATIVE DIAGNOSIS: 1. Z line noted at 40 cms; 3 cms sliding hiatal hernia was noted. Smal l erosions like [place] lesions were noted in the Hiatal Sac 2. Mild erosive gastritis noted in the body and antrum; Biopsied 3. The duodenal mucosa showed no abnormalities in the duodenal bulb, 1st part duodenum, and 2nd part duodenum RECOMMENDATIONS: 1. Await biopsy results 2. Begin an anti-reflux lifestyle: avoid acidic foods and drinks (like coffee and soda), do not lie down three hours after eating, elevate the head of your bed 6 to 9 inches, stop smokiing and reduce weight if needed. 3. Start pericolace twice daily for bowel regimen. Improving physical activity will help improve gu t motility; reduce Narcotics and anticholinergics. REPEAT EXAM: Derek Pederson MD eSigned: Derek Pederson MD 08/31/2019 9:20 AM cc: PATIENT NAME: Kathia Peck MR#: [id number]
[2019-08-31] MEDS: DOXYCYCLINE PO SCH (09:59)
[2019-08-31] MEDS: NEURONTIN PO SCH ×3 (09:59→20:13)
[2019-08-31] MEDS: COREG PO SCH ×2 (09:59→20:13)
[2019-08-31] MEDS: PEPCID PO SCH ×2 (10:00→20:13)
[2019-08-31] MEDS: LASIX IV SCH ×2 (10:00→20:13)
[2019-08-31] MEDS: OMNICEF PO SCH (10:00)
[2019-08-31] MEDS: CULTURELLE PO SCH ×2 (10:00→20:13)
[2019-08-31] MEDS: GLUCOPHAGE PO SCH (10:00)
[2019-08-31] MEDS: NORCO-5 PO PRN ×2 (10:58→17:27)
[2019-08-31] MEDS ORDERED: KLOR-CON PO ONE (13:24)
--- NOTE | 2019-08-31 15:27 | PROGRESS NOTE ---
DATE: 08/31/2019 SUBJECTIVE: No events overnight. At this moment she is complaining of severe lower extremity pain and contraction, she is still complaining of epigastric pain, she had an endoscopic procedure today that showed mild erosive gastritis in the body and antrum that was biopsied. The duodenal mucosa showed no abnormalities in the duodenal bulb, 1st part of duodenum and second part of the duodenum. OBJECTIVE: Vital Signs: Temperature 98.6 degrees, pulse 101, respiratory rate 16, blood pressure 130/74, oxygen saturation 93 on room air. HEENT: Head normocephalic, no trauma. PERRLA. Neck: Supple. No JVD. No masses. Central trachea. Chest: Clear to auscultation. Decreased breath sounds at the bases. Abdomen: Soft, a little bit distended, positive bowel sounds. No signs of peritoneal irritation. Extremities: 3+ lower extremity edema with erythema and pain and today is really painful. Neurological: This patient is sleepy but arousable. She is oriented. She had left lower extremity weakness which is chronic. LABORATORY: WBC 8.5, hemoglobin 14.1, hematocrit 44.9, platelets 333,000. Sodium 137, potassium 3.3, chloride 91, bicarbonate 29, BUN 15, creatinine 0.8, glucose 146, calcium 9.6. ASSESSMENT AND PLAN: 1. Bilateral lower extremity cellulitis. Continue with antibiotics per Infectious Disease Department. The redness is a bit better but not a whole lot. Will continue to monitor. 2. Lower extremity edema. Continue with Lasix. 3. Chronic diarrhea status post colonoscopy, a sessile polyp in the cecum was seen, it was not removed but they took multiple biopsies in the colon to rule out microscopic colitis. 4. Epigastric pain status post EGD that showed erosive gastritis. 5. Peripheral neuropathy. I have increased the dose of the Neurontin from 600 to 900 t.i.d., she is complaining of severe pain today. 6. Type 2 diabetes, seems to be stable. 7. Morbid obesity with a body mass index of 40.8 aware. 8. Vitamin D deficiency. Continue to replace. 9. Tachycardia. Continue with Coreg. 10. Deep vein thrombosis prophylaxis with Lovenox. 11. This patient had a procedure done today, she is complaining of severe pain at the level of the lower extremities and she is still complaining of the gastric pain, she has been placed on famotidine 20 mg p.o. q.[address] Pederson and also continue with furosemide twice a day even p.o. which because she has been tolerating 40 IV really well and her kidney function has been stable. She is still complaining abdominal pain and some diarrhea, I will hold her metformin for now to see if that is the case. Hopefully she can be discharged tomorrow morning, it looks like she has a bed in [facility]. Case has been discussed with the dialysis social worker, they will do the arrangements so she can be transported in the morning. For now we will continue also with the Neurontin. cc: Sin Briggs MD
[2019-08-31] MEDS: MELATONIN PO SCH (20:13)
[2019-08-31] MEDS: ZOFRAN IV PRN (20:13)
[2019-08-31] MEDS: LOVENOX SUBQ SCH (20:13)
[2019-08-31] MEDS: PERICOLACE PO SCH (20:13)
[2019-09-01] MEDS: NORCO-5 PO PRN ×4 (01:49→22:36)
[2019-09-01] MEDS: HUMALOG SUBQ SCH ×4 (06:26→22:23)
[2019-09-01] MEDS: PERICOLACE PO SCH ×2 (08:35→20:13)
[2019-09-01] MEDS: NEURONTIN PO SCH ×3 (08:35→20:12)
[2019-09-01] MEDS: LASIX IV SCH ×2 (08:36→20:13)
[2019-09-01] MEDS: PEPCID PO SCH ×2 (08:36→20:13)
[2019-09-01] MEDS: CULTURELLE PO SCH ×2 (08:36→20:14)
[2019-09-01] MEDS: COREG PO SCH ×2 (08:36→20:13)
--- NOTE | 2019-09-01 09:28 | PROGRESS NOTE ---
DATE: 09/01/2019 SUBJECTIVE: She presented with diarrhea. She has no primary care physician. Unfortunately, she has been in and out of hospital and rehab several times over the past 2 to 3 months. She was at [facility] up until 07/11/2019 and signed herself out, came back to the hospital the following few weeks stating that she had been at home, had diarrhea for a month. Unfortunately, the patient has morbid obesity, difficult to move around. She went to [place], was there for several days, seen at [facility] for the same thing and then was just at [facility] and then released, so history of chronic diarrhea since 2017. Full stool studies were done while she was in the hospital and negative including CT of the abdomen, so admitted with diarrhea, diabetes, hyperglycemia and kind of adult failure to thrive. She reports that she feels a little better today. OBJECTIVE: Vital signs: Temperature 97.9 degrees, pulse 75, respirations 20, blood pressure 122/71. HEENT: Pupils are equal and round. Lungs: Clear in all lung garcia. Cardiovascular: Regular rhythm and rate without murmur or S3. Abdomen: She reports some tenderness in the epigastric area. ASSESSMENT: 1. Bilateral lower extremity cellulitis, which is improved on antibiotics. Dr. Bauer is following. 2. Lower extremity edema. Continue diuretics. Getting IV Lasix twice a day. We have a negative fluid balance as of yesterday of 6.2 L. 3. Chronic diarrhea status post colonoscopy. A sessile polyp in the cecum was seen. It has not been removed, but they took multiple biopsies of the colon to rule out microscopic colitis. 4. Peripheral neuropathy. Continue Neurontin. 5. Diabetes mellitus type 2. 6. Morbid obesity. Body mass is 42.8. 7. Vitamin D deficiency. Continue vitamin D replacement. 8. Tachycardia, on Coreg. 9. Deep venous thrombosis prophylaxis. 10. Sounds like we also have chronic venous insufficiency secondary to her size and poor venous return. REVIEW OF ORDERS: Looking over her orders, she is on melatonin 3 mg at bedtime, Coreg 3.25 mg p.o. q.12, vitamin D 79876 units q.week, Pepcid 20 mg p.o. q.12, Lasix 40 mg IV q.12, Neurontin 900 mg p.o. t.i.d., hydrocodone 5 one q.6 hours p.r.n., lactobacillus rhamnosus 1 b.i.d., sennoside docusate 1 twice a day, and metformin 500 mg b.i.d. LABORATORY DATA: White count is 8520, hematocrit 44, platelet count 339,000. Blood sugars 150, 134, 185, 142. Electrolytes from yesterday, sodium 137, potassium 3.3, chloride 91, BUN 15, creatinine 0.5. cc: Allen Baird MD
--- NOTE | 2019-09-01 11:00 | GASTROENTEROLOGY PROGRESS NOTE ---
DATE: 09/01/2019 SUBJECTIVE: 73 year old female sitting in her bed having breakfast. She denies any nausea, vomiting or abdominal pain but complained of having 2 - 3 bowel movements last night and 1 this morning. OBJECTIVE: Vital Signs: Temperature 97.9 degrees, pulse is 75, respirations 20, blood pressure is 122/71, oxygen saturation 95% on room air. The patient's weight is 236 pounds. BMI is 40.6 kg/m2. General: The patient is morbidly obese, alert, oriented x3, in no acute distress. HEENT: Pale conjunctivae. No icterus. Neck: Supple. Lungs: Clear to auscultation in anterior garcia. Cardiovascular: Regular rate and rhythm. No abnormal heart sounds heard on auscultation. Abdomen: The abdomen is soft, distended, obese, nontender. Active bowel sounds heard in all 4 quadrants. Extremities: No clubbing, cyanosis, cellulitis in the lower extremities. Neurologic: Alert and oriented x3. LABORATORY DATA: WBC is 8.52, RBC 5.43, hemoglobin is 14.1, hematocrit is 44.9, platelet count is 339,000. Sodium is 137, potassium is 3.3, chloride 91, carbon dioxide 29. Anion gap is 17. BUN is 15, creatinine is 0.8, glucose is 146. Calcium is 9.6. IMPRESSION: 1. Chronic diarrhea. 2. Intermittent constipation, likely IBS. 3. Bilateral lower extremity edema and cellulitis. 4. Urinary tract infection. 5. Morbid obesity. 6. Type 2 diabetes. 7. Mild hepatic steatosis on imaging. 8. Kidney stones on imaging. 9. History of hiatal hernia. 10. Vitamin D deficiency. 11. Erosive gastritis. PLAN: An EGD was done yesterday and the patient has a 3 cm sliding hernia, small erosions like Garcia lesions noted in the hiatal sac. Mild erosive gastritis in the body and antrum. Duodenal mucosa showed no abnormalities. Biopsies were taken, awaiting the results of the biopsy. The patient is on Pepcid, Culturelle and bowel regimen Charline-Colace. Advised patient to sit upright for meals and OOB. We will continue to monitor the patient and follow the plan of care of the primary care provider. This plan was discussed with Dr. Cruz. Please call us for any further questions or concerns. Dictated by ANDRE Thompson for Donnie Cruz MD Physician Attestation I have seen and examined the patient. I have discussed and reviewed the the note by Viola POWELL and agree with findings and plan as documented. In brief, Ms. Kathia Peck is a 73 year old woman admitted with LE cellulitis and UTI. GI consulted for abdominal pain and "diarrhea". Diarrhea has resolved. Stool studies and biopsies on colonoscopy were negative for microscopic colitis. EGD on 08/31 showed hiatal hernia with Garcia's lesions as well as gastritis. Gastric biopsies pending. Will stop H2RA and start protonix 40mg PO BID. Her abdominal pain is improved with Levsin suggesting functional disorder. Continue antiemetics prn. SHe is on Senna-S for constipation. Labs unrevealing. Will sign off. Please call with questions. MTDD
--- NOTE | 2019-09-01 14:31 | DISCHARGE SUMMARY ---
ADMISSION DATE: 08/15/2019 DISCHARGE DATE: PRIMARY CARE PHYSICIAN: She has no primary care physician. REASON FOR ADMISSION: She presented with diarrhea. HISTORY: The patient is a 73-year-old female, unfortunately who has been in and out of the hospital and rehab several times in the past 2 to 3 months. She was in [facility] up until 07/11/2019 and signed herself out. She came back to the hospital the following few weeks, stated she had been at home and sitting in her own urine, had diarrhea for months. She has been living in and out of hotels with family. Unfortunately, the patient's morbid obesity causes difficulty able to move and get around. She was at [facility] just recently several days and then seen at [facility] for the same thing. She apparently she has just been at [facility] and was released. She has a history of chronic diarrhea since 2017. She has full stool studies done when she was in the hospital for few weeks and stool studies were negative. Also negative CT scan of the abdomen. Metformin was held to see if this was causing some of her trouble. ALLERGIES: Codeine and penicillin causes rash. PAST MEDICAL HISTORY: Diabetes, morbid obesity, rheumatoid arthritis, chronic diarrhea. SURGICAL HISTORY: Bilateral carpal tunnel syndrome, TMJ surgery, right breast lumpectomy, hysterectomy, right rotator cuff and right knee surgery. HOSPITAL COURSE: The patient was admitted with: 1. Diabetes mellitus, hyperglycemia, sugars were high. 2. Morbid obesity. 3. Chronic diarrhea. 4. Adult failure to thrive. 5. Hypertension. Abdominal x-ray done on 08/16/2019 showed a right renal stone, nonobstructive. Chest x-ray done on 08/18/2019, no acute disease. Infectious Disease consult was done with Dr. Oleg Bauer and she had bilateral leg cellulitis and treated her with Ancef 2 g IV q.8 hours and then elevated her lower extremities. This seems to have improved. Gastroenterology was asked to see as far as the diarrhea, nausea and vomiting. Colonoscopy was planned 08/24/2019. The patient is on Kefzol, she is on Culturelle and Imodium and I think they wanted to make sure she did not have microscopic colitis. Echocardiogram done on 08/22/2019, technically limited study. Left ventricular function was assessed, appeared to have normal left ventricular size. Could not really estimate the ejection fraction. She was put on prophylaxis with Pepcid. She has a small hiatal hernia based on imaging which may contribute to the nausea and reflux. The Pepcid they felt could help. Negative stool studies and I think the plan is to do a colonoscopy today. DISCHARGE DIAGNOSES: 1. Bilateral lower extremity cellulitis which is improving with antibiotics, Dr. Bauer' direction. 2. Lower extremity edema which is improved with elevation and diuretics. She has had negative fluid balance. 3. Chronic diarrhea, status post colonoscopy, sessile polyp in the cecum was seen, was not removed. Multiple biopsies of the colon done to try to rule out microscopic colitis. 4. Peripheral neuropathy, on Neurontin. 5. Diabetes mellitus type 2. 6. Morbid obesity. Body mass index is 42. 7. Vitamin D deficiency. Getting vitamin D replacement. 8. Tachycardia, on Coreg. This is doing better. 9. Chronic venous thrombosis. Prophylaxis in place. Note: I do not think the patient is ready to go. Will need to discuss with the other colleagues about antibiotics but apparently she has a place available at [facility] in [place], so we will discuss when we can discharge, but she will not be able to be discharged today. cc: Allen Baird MD
[2019-09-01] MEDS: TYLENOL PO PRN (20:13)
[2019-09-01] MEDS: LOVENOX SUBQ SCH (20:13)
[2019-09-01] MEDS: MELATONIN PO SCH (20:13)
[2019-09-02] MEDS ORDERED: PERICOLACE PO PRN (00:32)
[2019-09-02] MEDS: HUMALOG SUBQ SCH ×4 (06:32→21:03)
[2019-09-02] MEDS ORDERED: PROTONIX PO SCH (07:00)
[2019-09-02] MEDS: COREG PO SCH ×2 (08:45→21:02)
[2019-09-02] MEDS: PROTONIX PO SCH ×2 (08:45→21:01)
[2019-09-02] MEDS: CULTURELLE PO SCH ×2 (08:45→21:02)
[2019-09-02] MEDS: LASIX IV SCH ×2 (08:46→21:02)
[2019-09-02] MEDS: NEURONTIN PO SCH ×3 (08:46→21:01)
[2019-09-02] MEDS: TYLENOL PO PRN (11:33)
--- NOTE | 2019-09-02 16:09 | DISCHARGE SUMMARY ---
ADMISSION DATE: 08/15/2019 DISCHARGE DATE: 09/02/2019 This is a 73-year-old, unfortunately she has been out of the hospital rehab several times over the past 2 to 3 months. She was at [facility] until 07/11/2019, signed herself out, came back to the hospital following a few weeks stating that she had been at home sitting in her urine and unable to get up and had diarrhea for a month. Had been living in and out of hotels with family. Unfortunately patient's morbid obesity causes difficulty to move her around. She was at [facility] recently for several days and [facility] for the same thing. She apparently was just at [facility] as well and released. History of chronic diarrhea since 2017. Full stool studies done in the hospital a few weeks ago and they were negative including CT of the abdomen and pelvis. Metformin was held to see if this was causing some of the diarrhea. ALLERGIES: Codeine, penicillin causes rash. SURGICAL HISTORY: She has had bilateral carpal tunnel syndrome, TMJ surgery, right breast lumpectomy, hysterectomy, right rotator cuff, right knee surgery. ADMISSION DIAGNOSIS: 1. Diabetes mellitus with hyperglycemia. 2. Morbid obesity. 3. Chronic diarrhea. 4. Adult failure to thrive. 5. Hypertension. She had abdominal x-ray done on 08/16/2019 showed a right renal stone, nonobstructing. Infectious Disease was asked to see her on 08/20 as she developed some cellulitis in both of her lower extremities and so the patient had been on Ancef. Dr. Bauer increased it to 2 g IV q. 8 hours and encouraged elevation of the feet. GI consultation was obtained. She is on Culturelle and Imodium. Her studies and stool cultures were negative and so continue to follow CBC and basic metabolic profile and further plans and care based on colonoscopy. Echocardiogram performed on 08/22, a technically limited study. Left ventricular function could not be assessed. Normal left ventricular cavity size. Cannot estimate ejection fraction. Pulmonic valve was not well visualized. Tricuspid valve was normal. Aortic valve leaflets were not well visualized. Tricuspid valve not well visualized. Mitral valves appear to be normal. Chest x-ray on 08/22 was stable. Inspiration was suboptimal. Lungs remain grossly clear she had lower extremity venous study done. She has chronic DVT in the left popliteal vein, which is nonocclusive. The plan was to do a colonoscopy, but did not complete the bowel prep and so they rescheduled it and this was done on 08/25. They found a 3 mm sessile polyp was found in the cecum. Polypectomy was not attempted given inadequate prep. Normal colostomy otherwise. Multiple biopsies of the right and left colon were performed using cold biceps to rule out microscopic colitis and rule out flat lesions or polyps less than 10 mm. Retroflexion was not performed. The scope was completely withdrawn. She showed improvement and felt like she needed to work with some physical therapy. Blood sugars appear to be well controlled. The problem was discharge planning and so it looked like she was ready to be discharged, will be ready to be discharged on 09/03/2019. DISCHARGE MEDICATIONS: Will be as follows: Coreg 6.25 mg q. 12 hours, vitamin D 19552 units p.o. q. week, Lasix 40 mg p.o. twice a day, Neurontin 900 mg p.o. t.i.d., [place] 5 q. 6 hours p.r.n. pain, Culturelle 1 b.i.d., melatonin 3 mg at bedtime, metformin 500 mg b.i.d., Protonix 40 mg b.i.d., and Charline-Colace 1 b.i.d. p.r.n. Continue her physical therapy. Note that EGD was done. They found a 3 cm sliding hernia, small erosions, common Garcia lesions noted in the hiatal sac, mild erosive gastritis in the body and antrum. Duodenal mucosa showed no abnormalities. Biopsies were taken. Await for the results of the biopsy. The patient is on Pepcid and Culturelle. We will continue the Charline-Colace. cc: Allen Baird MD
--- NOTE | 2019-09-02 16:25 | PROGRESS NOTE ---
DATE: 09/02/2019 SUBJECTIVE: I am anticipating she will be discharged tomorrow. I did do her discharge summary. She feels better today. OBJECTIVE: Temp is afebrile, she is 97.8, pulse is 75, respirations 20, blood pressure 114/68. Pupils are equal round. Lungs are clear in all lung garcia. Cardiovascular regular rate without murmur or S3. Abdomen is soft skin is warm and dry. LABORATORY DATA: Blood sugars 193, 163 158. ASSESSMENT AND PLAN: 1. Bilateral lower extremity cellulitis, which is better. I think we can stop her antibiotics. 2. Lower extremity edema. Continue her Lasix. Chronic venous insufficiency and suspect related to her size. 3. Chronic diarrhea, status post colonoscopy, sessile polyp in the cecum found. Had an esophagogastroduodenoscopy done and found Garcia's lesion, hiatal hernia, so continue high- dose proton pump inhibitor. 4. Peripheral neuropathy. Continue Neurontin. 5. Diabetes mellitus type 2. Sugars under good control. 6. Morbid obesity. Body mass index is 42.8. Continue to pursue weight reduction. 7. Vitamin D deficiency, given supplemental vitamin D. 8. Tachycardia on Coreg. 9. Deep venous thrombosis prophylaxis. Going to continue her Lovenox for a while at physical therapy. Hope to send her to rehab tomorrow. cc: Allen Baird MD
[2019-09-02] MEDS: NORCO-5 PO PRN ×2 (17:09→23:55)
[2019-09-02] MEDS: GLUCOPHAGE PO SCH (17:09)
[2019-09-02] MEDS: MELATONIN PO SCH (21:02)
[2019-09-02] MEDS: LOVENOX SUBQ SCH (21:02)
[2019-09-03] MEDS: HUMALOG SUBQ SCH ×2 (06:10→11:10)
[2019-09-03] MEDS: NEURONTIN PO SCH (09:03)
[2019-09-03] MEDS: CULTURELLE PO SCH (09:03)
[2019-09-03] MEDS: COREG PO SCH (09:04)
[2019-09-03] MEDS: NORCO-5 PO PRN (09:04)
[2019-09-03] MEDS: LASIX IV SCH (09:04)
[2019-09-03] MEDS: GLUCOPHAGE PO SCH (09:04)
[2019-09-03] MEDS: PROTONIX PO SCH (09:04)
[2019-09-03] MEDS: ZOFRAN IV PRN (09:08)
[2019-09-03 11:34] VITALS: BP 113/76
== END 2019-09-03 14:00 | DRG 392 ==
LOC: P.ED 18:33 → 3N 21:56 → SUATTDRO 21:56
PROVIDERS: ATTEND Emergency Medicine